=== PATIENT | male | born 1935 | race Caucasian/White ===

== ENCOUNTER 2016-11-08 15:09 | Inpatient (IN) ==
[~2016-11-08 15:09] MED LIST: *HR* Metoprolol 5 MG/5 ML VIAL IVP ONE
[2016-11-08] MEDS ORDERED: Furosemide 40 MG/4 ML VIAL IVP ONE (15:27)
[2016-11-08] MEDS ORDERED: Ipratropium/Albuterol Neb 3 ML ONE (15:33)
[2016-11-08 15:38] LABS: Basophils % 0.2 %; Hematocrit 31.3 % (37.5-50.1); Immature Granulocytes % 1.1 % (0-4); Lymphocytes # 0.4 K/mcL (0.6-4.6); Lymphocytes % 3.8 %; Mean Corpuscular HGB Conc 31.9 g/dL (31.6-35.5); Mean Corpuscular Hemoglobin 29.5 pg (28.0-33.3); Mean Corpuscular Volume 92.3 fL (83.0-100.0); Mean Platelet Volume 9.6 fL (9.4-12.4); Monocytes # 0.6 K/mcL (0.0-1.3); Monocytes % 5.1 %; Neutrophils # 10.5 K/mcL (1.6-8.9); Platelet Count 252 K/mcL (140-400); Red Blood Count 3.39 M/mcL (4.19-5.50); Red Cell Distribution Width 12.4 % (11.5-14.5); Segmented Neutrophils % 89.8 %
[2016-11-08 15:39] LABS: ABG Base Excess -5.7 mEq/L (-2.0 to 3.0); ABG HCO3 20.1 mEQ/L (21-27); ABG Oxygen Saturation 89 % (95-98); ABG PCO2 40 mmHg (35-45); ABG PH 7.31 pH Units (7.32-7.45); ABG PO2 63 mmHg (85-104); ABG TCO2 21.3 mEq/L (20-26); Blood Gas FiO2 60 %
[2016-11-08 15:43] LABS: Prothrombin Time 11.1 Seconds (9.4-12.1)
[2016-11-08 15:46] LABS: Activated Partial Thrombo Time 30.6 Seconds (26.0-36.0)
[2016-11-08 15:52] LABS: Albumin 3.3 g/dL (3.5-5.0); Albumin/Globulin Ratio 0.8 (1.1-2.2); Bilirubin,Total 0.4 mg/dL (0.2-1.2); Calcium 8.2 mg/dL (8.6-10.8); Globulin 3.9 g/dL (2.4-3.5); Potassium 4.1 mEq/L (3.5-4.5); Total Protein 7.2 g/dL (6.0-8.3)
--- NOTE | 2016-11-08 16:10 | Emergency Department Note ---
Disposition Clinical Impression: Community acquired pneumonia, CHF (congestive heart failure), Elevated troponin Disposition: Admitted As Inpatient Condition: Good SOB HPI - General Chief Complaint: ED Shortness of Breath/Dyspnea Stated Complaint: NYA/AMS Time Seen by Provider: 11/08/16 15:11 Source: patient, EMS Limitations: age Nursing Notes Reviewed: Yes Vital Signs Reviewed: Yes - History of Present Illness Patient comes in with complaint of shortness of breath started about 3 days ago. Patient states that he was scheduled to have knee surgery and he was taken off his Lasix prior to this. Patient also notes that he was found to be anemic and a colonoscopy ordered. Patient denies chest pain does complains of shortness of breath. Per EMS report patient was found unresponsive with this wound is now with a found when they arrived residents. They state his oxygen saturation was about 70% and he was having difficulty breathing. - Related Data Home Medications Medication Instructions Recorded Confirmed Alprazolam [Xanax 0.5 MG Tablet] 0.5 mg PO TID PRN 01/16/16 11/08/16 Glimepiride [Amaryl] 4 mg PO QAM 01/16/16 11/08/16 Lisinopril [Zestril] 40 mg PO BID 01/16/16 11/08/16 Sitagliptin Phosphate [Januvia] 50 mg PO DAILY #0 01/16/16 11/08/16 Diltiazem CD (24hr) [Cardizem CD] 240 mg PO QPM 11/08/16 11/08/16 Previous Rx's Medication Instructions Recorded Amlodipine [Norvasc] 5 mg PO DAILY #30 tablet 01/17/16 Allergies Allergy/AdvReac Type Severity Reaction Status Date / Time Penicillins Allergy Hives Verified 01/16/16 11:27 All systems ED: reviewed and negative except as stated. Past Medical History - Past Medical History Source: patient Medical history: Reports: CHF, diabetes, hypertension, renal disease Surgical history: Reports: appendectomy, cataract, cholecystectomy, knee replacement Psychiatric history: Reports: anxiety - Social History Smoking Status: Former smoker Smokeless Tobacco Status: Yes Alcohol use: Reports: none Drug use: Reports: none Physical Exam - General Limitations: age General appearance: alert - Head Head exam: atraumatic, normocephalic, normal inspection - Eye Eye exam: Present: normal appearance, PERRL, EOMI - ENT ENT exam: normal exam, normal oropharynx, mucous membranes moist - Neck Neck exam: Present: normal inspection, full ROM, trachea midline - Chest Chest inspection: Present: normal inspection, symmetric chest wall rise - Respiratory Respiratory exam: Present: wheezes, accessory muscle use, prolonged expiratory phase - Cardiovascular Cardiovascular exam: Present: tachycardia, irregular rhythm - Abdominal Exam Abdominal exam: Present: soft, Non-Tender. Absent: tenderness, distention, guarding, rebound, rigidity - Extremities Exam Extremities exam: Present: full ROM, pedal edema. Absent: tenderness - Back Exam Back exam: Present: normal inspection, full ROM. Absent: tenderness - Neurological Exam Neurological exam: Present: alert, oriented X3 - Psychiatric Psychiatric exam: Present: normal affect, normal mood - Skin Skin exam: Present: warm ( ), dry, intact, normal color Course Vital Signs Temperature 98.9 F 11/08/16 15:11 Pulse Rate 130 11/08/16 15:11 Respiratory Rate 22 11/08/16 15:11 Blood Pressure 158/90 11/08/16 15:11 O2 Sat by Pulse Oximetry 75 L 11/08/16 15:11 Temperature 98.9 F 11/08/16 15:11 Pulse Rate 118 11/08/16 17:57 Respiratory Rate 14 11/08/16 17:57 Blood Pressure 112/86 11/08/16 17:57 O2 Sat by Pulse Oximetry 94 L 11/08/16 17:57 Oxygen Delivery Oxygen Delivery CPAP Mask O2 Shortness of Breath/Dyspnea - Differential Diagnosis Likely: acute exacerbation of chronic obstructive airways disease, congestive heart failure, pneumonia, pulmonary embolism, pneumothorax - Lab Data Lab results reviewed: Yes I reviewed the patient's lab results. Result diagrams: 11/08/16 15:27 11/08/16 15:27 Lab Results 11/08/16 11/08/16 11/08/16 Range/Units 15:27 15:27 15:27 WBC 11.7 H (4.3-11.1) K/mcL RBC 3.39 L (4.19-5.50) M/mcL Hgb 10.0 L (12.9-16.9) g/dL Hct 31.3 L (37.5-50.1) % MCV 92.3 (83.0-100.0) fL MCH 29.5 (28.0-33.3) pg MCHC 31.9 (31.6-35.5) g/dL RDW 12.4 (11.5-14.5) % Plt Count 252 (140-400) K/mcL MPV 9.6 (9.4-12.4) fL Immature Gran % 1.1 (0-4) % Seg Neutrophils % 89.8 % Lymphocytes % 3.8 % Monocytes % 5.1 % Eosinophils % 0.0 % Basophils % 0.2 % Neutrophils # 10.5 H (1.6-8.9) K/mcL Lymphocytes # 0.4 L (0.6-4.6) K/mcL Monocytes # 0.6 (0.0-1.3) K/mcL Eosinophils # 0.0 (0.0-0.6) K/mcL Basophils # 0.0 (0.0-0.2) K/mcL PT 11.1 (9.4-12.1) Seconds INR 1.0 APTT 30.6 (26.0-36.0) Seconds ABG pH (7.32-7.45) pH Units ABG pCO2 (35-45) mmHg ABG pO2 (85-104) mmHg ABG HCO3 (21-27) mEQ/L ABG Total CO2 (20-26) mEq/L ABG O2 Saturation (95-98) % ABG Base Excess (-2.0 to 3.0) mEq/L Blood Gas Modality Inspired O2 % Sodium 134 L (136-145) mEq/L Potassium 4.1 (3.5-4.5) mEq/L Chloride 104 (98-109) mEq/L Carbon Dioxide 18 L (19-29) mEq/L BUN 43 H (8-26) mg/dL Creatinine 1.85 H (0.72-1.25) mg/dL Est GFR ( Amer) 43 L (> 60) Est GFR (Non-Af Amer) 35 L (> 60) BUN/Creatinine Ratio 23 (6-26) Glucose 111 H (70-99) mg/dL Calculated Osmolality 290 (280-300) Lactic Acid (0.5-2.2) mmol/L Calcium 8.2 L (8.6-10.8) mg/dL Total Bilirubin 0.4 (0.2-1.2) mg/dL AST 32 (5-34) Units/L ALT 11 (0-55) Units/L Alkaline Phosphatase 105 (38-126) Units/L Troponin I (0-0.03) ng/mL B-Natriuretic Peptide (0-100) pg/mL Serum Total Protein 7.2 (6.0-8.3) g/dL Albumin 3.3 L (3.5-5.0) g/dL Globulin 3.9 H (2.4-3.5) g/dL Albumin/Globulin Ratio 0.8 L (1.1-2.2) Urine Color (Yellow) Urine Clarity (Clear) Urine pH (5.0-8.0) pH Units Ur Specific Prole (1.010-1.025) Urine Protein (Neg-Trace) mg/dL Urine Glucose (UA) (Normal) mg/dL Urine Ketones (Negative) mg/dL Urine Blood (Negative) Urine Nitrite (Negative) Urine Bilirubin (Negative) Urine Urobilinogen (Normal) mg/dL Ur Leukocyte Esterase (Negative) Urine Microscopic RBC (0-3) per hpf Urine Microscopic WBC (0-3) per hpf Ur Squamous Epith Cells (None-Few) per lpf Urine Bacteria (None-Few) per hpf Hyaline Casts Granular Casts (None Seen) per lpf Urine Mucus (Few) Urine Yeast Ur Culture Indicated? (NO) 11/08/16 11/08/16 11/08/16 Range/Units 15:27 15:27 15:27 WBC (4.3-11.1) K/mcL RBC (4.19-5.50) M/mcL Hgb (12.9-16.9) g/dL Hct (37.5-50.1) % MCV (83.0-100.0) fL MCH (28.0-33.3) pg MCHC (31.6-35.5) g/dL RDW (11.5-14.5) % Plt Count (140-400) K/mcL MPV (9.4-12.4) fL Immature Gran % (0-4) % Seg Neutrophils % % Lymphocytes % % Monocytes % % Eosinophils % % Basophils % % Neutrophils # (1.6-8.9) K/mcL Lymphocytes # (0.6-4.6) K/mcL Monocytes # (0.0-1.3) K/mcL Eosinophils # (0.0-0.6) K/mcL Basophils # (0.0-0.2) K/mcL PT (9.4-12.1) Seconds INR APTT (26.0-36.0) Seconds ABG pH (7.32-7.45) pH Units ABG pCO2 (35-45) mmHg ABG pO2 (85-104) mmHg ABG HCO3 (21-27) mEQ/L ABG Total CO2 (20-26) mEq/L ABG O2 Saturation (95-98) % ABG Base Excess (-2.0 to 3.0) mEq/L Blood Gas Modality Inspired O2 % Sodium (136-145) mEq/L Potassium (3.5-4.5) mEq/L Chloride (98-109) mEq/L Carbon Dioxide (19-29) mEq/L BUN (8-26) mg/dL Creatinine (0.72-1.25) mg/dL Est GFR ( Amer) (> 60) Est GFR (Non-Af Amer) (> 60) BUN/Creatinine Ratio (6-26) Glucose (70-99) mg/dL Calculated Osmolality (280-300) Lactic Acid 1.5 (0.5-2.2) mmol/L Calcium (8.6-10.8) mg/dL Total Bilirubin (0.2-1.2) mg/dL AST (5-34) Units/L ALT (0-55) Units/L Alkaline Phosphatase (38-126) Units/L Troponin I 0.21 H* (0-0.03) ng/mL B-Natriuretic Peptide 891 H (0-100) pg/mL Serum Total Protein (6.0-8.3) g/dL Albumin (3.5-5.0) g/dL Globulin (2.4-3.5) g/dL Albumin/Globulin Ratio (1.1-2.2) Urine Color (Yellow) Urine Clarity (Clear) Urine pH (5.0-8.0) pH Units Ur Specific Prole (1.010-1.025) Urine Protein (Neg-Trace) mg/dL Urine Glucose (UA) (Normal) mg/dL Urine Ketones (Negative) mg/dL Urine Blood (Negative) Urine Nitrite (Negative) Urine Bilirubin (Negative) Urine Urobilinogen (Normal) mg/dL Ur Leukocyte Esterase (Negative) Urine Microscopic RBC (0-3) per hpf Urine Microscopic WBC (0-3) per hpf Ur Squamous Epith Cells (None-Few) per lpf Urine Bacteria (None-Few) per hpf Hyaline Casts Granular Casts (None Seen) per lpf Urine Mucus (Few) Urine Yeast Ur Culture Indicated? (NO) 11/08/16 11/08/16 Range/Units 15:31 16:00 WBC (4.3-11.1) K/mcL RBC (4.19-5.50) M/mcL Hgb (12.9-16.9) g/dL Hct (37.5-50.1) % MCV (83.0-100.0) fL MCH (28.0-33.3) pg MCHC (31.6-35.5) g/dL RDW (11.5-14.5) % Plt Count (140-400) K/mcL MPV (9.4-12.4) fL Immature Gran % (0-4) % Seg Neutrophils % % Lymphocytes % % Monocytes % % Eosinophils % % Basophils % % Neutrophils # (1.6-8.9) K/mcL Lymphocytes # (0.6-4.6) K/mcL Monocytes # (0.0-1.3) K/mcL Eosinophils # (0.0-0.6) K/mcL Basophils # (0.0-0.2) K/mcL PT (9.4-12.1) Seconds INR APTT (26.0-36.0) Seconds ABG pH 7.31 L (7.32-7.45) pH Units ABG pCO2 40 (35-45) mmHg ABG pO2 63 L (85-104) mmHg ABG HCO3 20.1 L (21-27) mEQ/L ABG Total CO2 21.3 (20-26) mEq/L ABG O2 Saturation 89 L (95-98) % ABG Base Excess -5.7 L (-2.0 to 3.0) mEq/L Blood Gas Modality BIPAP Inspired O2 60 % Sodium (136-145) mEq/L Potassium (3.5-4.5) mEq/L Chloride (98-109) mEq/L Carbon Dioxide (19-29) mEq/L BUN (8-26) mg/dL Creatinine (0.72-1.25) mg/dL Est GFR ( Amer) (> 60) Est GFR (Non-Af Amer) (> 60) BUN/Creatinine Ratio (6-26) Glucose (70-99) mg/dL Calculated Osmolality (280-300) Lactic Acid (0.5-2.2) mmol/L Calcium (8.6-10.8) mg/dL Total Bilirubin (0.2-1.2) mg/dL AST (5-34) Units/L ALT (0-55) Units/L Alkaline Phosphatase (38-126) Units/L Troponin I (0-0.03) ng/mL B-Natriuretic Peptide (0-100) pg/mL Serum Total Protein (6.0-8.3) g/dL Albumin (3.5-5.0) g/dL Globulin (2.4-3.5) g/dL Albumin/Globulin Ratio (1.1-2.2) Urine Color Yellow (Yellow) Urine Clarity Cloudy A (Clear) Urine pH 5.0 (5.0-8.0) pH Units Ur Specific Prole 1.016 (1.010-1.025) Urine Protein >=300 H (Neg-Trace) mg/dL Urine Glucose (UA) Normal (Normal) mg/dL Urine Ketones Negative (Negative) mg/dL Urine Blood Small H (Negative) Urine Nitrite Negative (Negative) Urine Bilirubin Negative (Negative) Urine Urobilinogen Normal (Normal) mg/dL Ur Leukocyte Esterase Negative (Negative) Urine Microscopic RBC 0-3 (0-3) per hpf Urine Microscopic WBC 0-3 (0-3) per hpf Ur Squamous Epith Cells Few (None-Few) per lpf Urine Bacteria None Seen (None-Few) per hpf Hyaline Casts Test Not Performed Granular Casts Few H (None Seen) per lpf Urine Mucus Few (Few) Urine Yeast Test Not Performed Ur Culture Indicated? NO (NO) - Radiology Data Radiology results reviewed: Yes I reviewed the patient's radiology results. Head CT 11/08/16 15:11 IMPRESSION: No acute intracranial abnormality. Stable periventricular white matter ischemic changes. D/ / 11/08/2016 17:25:31 Byron Stevens MD / [email or web address] Interpreting Provider: Byron Stevens MD Chest X-Ray 11/08/16 15:12 IMPRESSION: New bilateral airspace disease suggestive of pulmonary edema. There is slightly more focal consolidation in the right upper lung and left mid lung and superimposed pneumonia not excluded. D/ / Zara Solano MD / Zara Solano MD Interpreting Provider: Zara Solano MD - EKG Data EKG attestation: Yes I reviewed and interpreted this EKG. Rate: Reports: tachycardia Rhythm: Reports: A.Fib Critical Care Time Total Critical Care Time: 30 Attestation: Critical care performed: Time is exclusive of separately billable procedures. Time includes: direct patient care, patient reassessment, coordination of patient care, interpretation of data (laboratory data, radiology data, and respiratory data), review of patient's medical records, medical consultation and documentation of patient care. Procedures included in critical care time: Procedures excluded from critical care time:
[2016-11-08 16:21] LABS: Bilirubin,Urine Negative (Negative); Blood,Urine Small (Negative); Clarity,Urine Cloudy (Clear); Color,Urine Yellow (Yellow); Glucose,Urine (UA) Normal (Normal); Ketones,Urine Negative (Negative); Leukocyte Esterase,Urine Negative (Negative); Nitrite,Urine Negative (Negative); Protein,Urine >=300 mg/dL (Neg-Trace); Specific Gravity,Urine 1.016 (1.010-1.025); Urobilinogen,Urine Normal (Normal)
[2016-11-08 16:24] LABS: Bacteria,Urine None Seen per hpf (None-Few); RBC,Urine 0-3 per hpf (0-3); WBC,Urine 0-3 per hpf (0-3)
[2016-11-08 16:47] LABS: Squamous Epithelial Cell,Urine Few per lpf (None-Few)
[2016-11-08 16:48] LABS: Granular Casts,Urine Few per lpf (None Seen); Mucus,Urine Few (Few)
[2016-11-08] MEDS ORDERED: Azithromycin 500 MG in D5% in Water 250 ML IVPB ONE (18:49)
[2016-11-08] MEDS ORDERED: ALPRAZolam 0.5 MG TABLET PO PRN (19:53)
[2016-11-08] MEDS ORDERED: Ipratropium/Albuterol Neb 3 ML IH PRN (19:54)
[2016-11-08] MEDS ORDERED: *HR* Morphine 2 MG/ML SYRINGE IV PRN (19:54)
[2016-11-08] MEDS ORDERED: Dextrose Gel 15 GM PO PRN ×2 (19:55)
[2016-11-08] MEDS ORDERED: Naloxone 0.4 MG/ML INJ IVP PRN (19:55)
[2016-11-08] MEDS ORDERED: Acetaminophen 325 MG TABLET PO PRN (19:55)
[2016-11-08] MEDS ORDERED: *HR* Dextrose 50 % in Water (Syg) 50 ML SYRINGE IVP PRN (19:55)
[2016-11-08] MEDS ORDERED: Ondansetron 4 MG/2 ML VIAL IVP PRN (19:55)
[2016-11-08] MEDS ORDERED: D5% in Water 1,000 ML IV PRN (19:55)
[2016-11-08] MEDS ORDERED: *HR* Heparin 5,000 UNIT/ML VIAL SQ SCH (20:00)
--- NOTE | 2016-11-08 20:02 | Internal Med History&Physical ---
Date of Encounter: 11/08/16 Time of Encounter: 19:59 Assessment and Plan (1) Acute respiratory failure Current visit: Yes Status: Acute Acute hypoxic respiratory failure secondary to combination of acute diastolic CHF exacerbation with possible acute community-acquired pneumonia Continue Rocephin and azithromycin Lasix IV with a strict I's and O's and daily weight Continue BiPAP, titrate oxygen Order a nasal swab to test for respiratory viral infections Blood cultures Qualifiers: Respiratory failure complication: hypoxia Qualified Code(s): J96.01 - Acute respiratory failure with hypoxia (2) Hypertension Current visit: Yes Status: Acute Stable, continue lisinopril and hold amlodipine Qualifiers: Hypertension type: essential hypertension Qualified Code(s): I10 - Essential (primary) hypertension (3) A-fib Current visit: Yes Status: Acute Stable Continue Cardizem Qualifiers: Atrial fibrillation type: paroxysmal Qualified Code(s): I48.0 - Paroxysmal atrial fibrillation (4) CHF (congestive heart failure) Current visit: Yes Status: Acute Qualifiers: Congestive heart failure type: diastolic Congestive heart failure chronicity: acute on chronic Qualified Code(s): I50.33 - Acute on chronic diastolic (congestive) heart failure (5) Community acquired pneumonia Current visit: Yes Status: Acute (6) Elevated troponin Current visit: Yes Status: Acute Likely secondary to demand ischemia Continue telemetry and follow troponins Add aspirin (7) Syncope Current visit: No Status: Acute Likely secondary to hypoxia Omeprazole for GI prophylaxis and subcutaneous heparin for DVT prophylaxis. The patient will be admitted as inpatient, he is expected to stay more than 2 midnights. He is a full code. Time spent on this admission 40 minutes. He is high risk for respiratory failure Qualifiers: Syncope type: unspecified Qualified Code(s): R55 - Syncope and collapse Internal Medicine - H&P: HPI Chief complaint: Shortness of breath Plans for Post Hospital Care: Home History of present illness: Mr. 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 His mentions that he has been sick for the past 3 days , bringing up yellowish phlegm and complaining of a cough. Also, he has been off his Lasix and other medications since October 31 she was scheduled to have a knee replacement on November 05. The surgery had to be canceled and rescheduled as the patient was recommended to have a colonoscopy due to anemia, his hemoglobin is 10 at the moment there are no signs of bleeding. The chest x- ray shows pulmonary edema and also a right upper lobe and left middle lobe opacities and pneumonia cannot be excluded. The patient received Rocephin and azithromycin at the emergency room also Lasix was given. His heart rate was 124 but now is better controlled in the low 100s. Patient was started on the BiPAP his pH was 7.31 PCO2 40 and PO2 63. White Blood cell count is 11.7. Patient is very weak at the moment denies any other complaints, no chest pain, his troponin 0.21, denies any sick contacts. The patient had a recent stress test that was normal less than a month ago with an ejection fraction 48%, his last echocardiogram on the same month is 60% and shows mild diastolic dysfunction. Past Med Surg Social Fam HX - Past Medical History Medical history: CHF (Diastolic), diabetes (Not insulin-dependent), hypertension , renal disease (CK D3), other (Anxiety, atrial fibrillation not on anticoagulation, syncopal episodes in the past due to not intentional Cardizem overdose) Psychiatric history: anxiety - Past Surgical History Surgical History: appendectomy, cataract, cholecystectomy, knee replacement - Social History Smoking Status: Former smoker Smokeless Tobacco Status: Yes Alcohol use: none Drug use: none - Family History Mother Living Status: Father Living Status: - Additional Family History Additional family history: Mother with a myocardial infarction and at 73, father with aplastic anemia Internal Medicine - H&P: Meds Alprazolam [Xanax 0.5 MG Tablet] 0.5 mg PO TID PRN 01/16/16 [History] Glimepiride [Amaryl] 4 mg PO QAM 01/16/16 [History] Lisinopril [Zestril] 40 mg PO BID 01/16/16 [History] Sitagliptin Phosphate [Januvia] 50 mg PO DAILY #0 01/16/16 [History] Amlodipine [Norvasc] 5 mg PO DAILY #30 tablet 01/17/16 [Rx] Diltiazem CD (24hr) [Cardizem CD] 240 mg PO QPM 11/08/16 [History] Allergies Penicillins Allergy (Verified 01/16/16 11:27) Hives All Systems PM: A 10-system review of systems was performed and is negative for pertinent findings except as documented above in the HPI. Review of systems: Still very short of breath, denies any chest pain, no abdominal pain, no dysuria. Other systems out of the 10 reviewed were negative - Constitutional Vitals: Temp Pulse Resp BP Pulse Ox 98.9 F 118 14 130/83 94 L 11/08/16 15:11 11/08/16 17:57 11/08/16 18:52 11/08/16 18:52 11/08/16 17:57 - Head Head exam: Present: atraumatic, normocephalic - Eye Eye exam: Present: PERRL, conjuntiva pink, sclera anicteric Pupils: Present: PERRL - Neck Neck exam general surgery: Present: supple, trachea midline. Absent: lymphadenopathy - Respiratory Respiratory exam: Present: CTAB, rales (Diffuse coarse crackles). Absent: accessory muscle use, rhonchi, wheezes - Cardiovascular Cardiovascular exam: Present: RRR, +S1, +S2. Absent: diastolic murmur, gallop, rubs, systolic murmur - GI/Abdominal GI/Abdominal exam: Present: normal bowel sounds, soft, no peritoneal signs. Absent: distended, tenderness - Extremities Exam Extremities exam: Present: warm, radial pulses palpable and symetrical. Absent : calf tenderness, cyanotic, pedal edema Additional comments: Mild +1 pitting edema both lower extremities - Neurological Exam Neurological exam: Present: CN II-XII intact, oriented X3, no focal deficits. Absent: pronater drift, facial droop, speech deficit - Skin Skin exam: Present: dry, intact Internal Med - H&P Results - Labs CBC & Chem 7: 11/08/16 15:27 11/08/16 15:27
[2016-11-08] MEDS: Insulin LISPRO 300 UNITS/3 ML VIAL SQ SCH (21:51)
[2016-11-08] MEDS: Furosemide 40 MG/4 ML VIAL IV SCH (21:54)
[2016-11-08] MEDS: Lisinopril 20 MG TABLET PO SCH (21:54)
[2016-11-08] MEDS: Aspirin 81 MG TAB.CHEW PO SCH (21:56)
[2016-11-08] MEDS ORDERED: Diltiazem CD (24hr) 240 MG CAPSULE PO STA (23:46)
[2016-11-09] MEDS: *HR* Metoprolol 5 MG/5 ML VIAL IVP SCH (00:56)
[2016-11-09 01:51] LABS: Hematocrit 29.1 % (37.5-50.1); Hemoglobin 9.6 g/dL (12.9-16.9); Mean Corpuscular Hemoglobin 29.4 pg (28.0-33.3); Mean Corpuscular Volume 89.3 fL (83.0-100.0); Mean Platelet Volume 9.7 fL (9.4-12.4); Platelet Count 218 K/mcL (140-400); Red Blood Count 3.26 M/mcL (4.19-5.50); Red Cell Distribution Width 12.4 % (11.5-14.5)
[2016-11-09 02:03] LABS: Calcium 7.8 mg/dL (8.6-10.8); Potassium 3.9 mEq/L (3.5-4.5)
[2016-11-09] MEDS: *HR* Enoxaparin 100 MG/ML SYRINGE SQ SCH ×2 (05:28→18:33)
[2016-11-09] MEDS: Insulin LISPRO 300 UNITS/3 ML VIAL SQ SCH ×4 (07:50→21:12)
[2016-11-09 08:31] LABS: Adenovirus Not Detected (Not Detect); Bordetella Pertussis Not Detected (Not Detect); Chlamydophila pneumoniae Not Detected (Not Detect); Coronavirus 229E Not Detected (Not Detect); Coronavirus HKU1 Not Detected (Not Detect); Coronavirus NL63 Not Detected (Not Detect); Coronavirus OC43 Not Detected (Not Detect); Human Metapneumovirus ***DETECTED*** (Not Detect); Human Rhinovirus/Enterovirus Not Detected (Not Detect); Influenza A Subtype 2009 H1 Not Detected (Not Detect); Influenza A Untypeable Not Detected (Not Detect); Influenza B Not Detected (Not Detect); Mycoplasma pneumoniae Not Detected (Not Detect); Parainfluenza Virus 1 Not Detected (Not Detect); Parainfluenza Virus 2 Not Detected (Not Detect); Parainfluenza Virus 3 Not Detected (Not Detect); Parainfluenza Virus 4 Not Detected (Not Detect); Respiratory Syncytial Virus Not Detected (Not Detect)
--- NOTE | 2016-11-09 09:11 | Cardiology Consult Note ---
<Eliceo Vail - Last Filed: 11/09/16 14:30> Date of Encounter: 11/09/16 Time of Encounter: 09:15 Assessment and Plan (1) Community acquired pneumonia Current Visit: Yes Status: Acute Per Cardiology: Being managed by primary service and on antibiotics. Suspect contribute factor to A. fib with RVR and elevated troponins. (2) A-fib Current Visit: Yes Status: Acute Per Cardiology: Known history of paroxysmal atrial fibrillation. Nonexercise nuclear stress test negative for ischemia October 2016. Echocardiogram October 2016 showed EF preserved at 60%, mild diastolic dysfunction, mild aortic, mild pulmonary hypertension, no segmental wall motion abnormalities. Afib appears to be somewhat better controlled 90's to 100's controlled with Cardizem CD 240 mg by mouth daily-- this is his home dose. Systolic blood pressure in the 140s. Will increase Cardizem CD to 360 mg by mouth daily. We'll decrease lisinopril from 40 mg by mouth twice a day to 40 mg by mouth daily to allow for room with blood pressure for titration of rate controlling agents and due to underlying CKD stage IIIB and receiving IV Lasix. Continue to monitor telemetry and vital signs. No recent TSH, will check an a.m. Regarding long-term anticoagulation, recently seen by cardiology and started on Coumadin for stroke prevention, however discontinued by PCP for concerns of anemia and reports of melena stools. Anticoagulation currently on hold due to pending GI evaluation. Patient and family aware of increased stroke risk. He denies any current active bleeding or blood loss. Patient discussed and reviewed with Dr. Long. Qualifiers: Atrial fibrillation type: paroxysmal Qualified Code(s): I48.0 - Paroxysmal atrial fibrillation (3) Elevated troponin Current Visit: Yes Status: Acute Per Cardiology: Troponins flat and relatively adynamic with elevations of 0.21, 0.32, 0.39, and 0.41 in setting of A. fib with RVR, suspected pneumonia with respiratory distress/hypoxia hypoxia, and hypoglycemic episode with unresponsiveness. Patient denies any chest pain. Recent nuclear stress test negative for ischemia. Suspect type II demand ischemia. Do not suspect non-STEMI. No cardiac rehabilitation warranted at this time. Again recent echo showed EF preserved with no segmental wall motion abnormalities. (4) LBBB (left bundle branch block) Current Visit: Yes Status: Chronic Per Cardiology: Left bundle branch block noted on ECG from cardiology office visit. Discussion w patient/family: The assessment and plan as outlined above was discussed with the patient and/or family members who expressed understanding and agreement. All questions were answered. Thank you for involving us in the care of your patient. Please call with any questions. History of Present Illness Consult date: 11/09/16 Requesting physician: Steven Montesinos Consult reason: Elevated Troponin Chief complaint: MS Changes, SOB, Cough History of present illness: Mr. 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 Upon review of records has history of left bundle branch block. Patient reports seen by Dr. Guzman with cardiology about one month ago for recurrence of his atrial fibrillation. He confirms scheduled for stress test at that time and started on Coumadin therapy. Has not followed up with cardiology as of yet. Reports was scheduled for knee surgery, however postponed due to atrial fibrillation with RVR. Additionally, saw PCP with concerns of worsening hemoglobin and reports of melena stools. Patient reports PCP discontinued Coumadin at that time it was scheduled for GI evaluation. He indicates was preparing for colonoscopy yesterday, however over the past few days has developed cough with production of yellow-green sputum, sore throat, and chest congestion. Patient and also report at time of discontinuing Coumadin they believe they were told to discontinue his Lasix 40 mg by mouth daily as well. Family reports they called EMS when patient became unresponsive yesterday and reports his blood sugars with 50s and oxygen saturation the 70s. Patient seen today and denies any chest pain or palpitations. Reports is short of breath slightly improved. Reports does not require oxygen at home. Denies any smoking history. Past Med Surg Social Fam HX - Past Medical History Attestation: Yes The following information was validated with the patient. Source: patient, old records reviewed, obtained from family Medical history: CHF, diabetes, hypertension, renal disease, other Psychiatric history: anxiety - Past Surgical History Surgical History: appendectomy, cataract, cholecystectomy, knee replacement - Social History Smoking Status: Former smoker Smokeless Tobacco Status: Yes Alcohol use: none Drug use: none - Family History Mother Living Status: Father Living Status: Medications and Allergies Alprazolam [Xanax 0.5 MG Tablet] 0.5 mg PO TID PRN 01/16/16 [History] Glimepiride [Amaryl] 4 mg PO QAM 01/16/16 [History] Lisinopril [Zestril] 40 mg PO BID 01/16/16 [History] Sitagliptin Phosphate [Januvia] 50 mg PO DAILY #0 01/16/16 [History] Amlodipine [Norvasc] 5 mg PO DAILY #30 tablet 01/17/16 [Rx] Diltiazem CD (24hr) [Cardizem CD] 240 mg PO QPM 11/08/16 [History] Allergies Penicillins Allergy (Verified 01/16/16 11:27) Hives All Systems Review: A 10-system review of systems was performed and is negative for pertinent findings except as documented above in the HPI. - Constitutional Constitutional: fatigue - Cardiovascular Cardiovascular: as per HPI, dyspnea at rest, dyspnea on exertion, irregular heart rhythm - Respiratory Respiratory: cough, dyspnea - Gastrointestinal Gastrointestinal: melena - Psychiatric Psychiatric: anxiety Physical Examination Vital Signs, Last 4 Hours Temp Pulse Resp BP Pulse Ox 11/09/16 06:59 98.1 F 78 20 118/76 96 General: Conversant HEENT: Atraumatic, Normocephaly, Mucus Membranes Moist Neck: No JVD, Normal carotid pulses Cardiac: No Murmur, Other (Irregular irregular) Lungs: Other (Scattered rhonchi throughout, respirations moderately labored at rest and with speaking) Neuro: Alert and responsive, No focal deficits noted Abdomen: Soft, Non-Tender Skin: No rashes noted on visualized skin Musculoskeletal: No Chest Wall Tenderness Extremities: No Edema, Normal Pulses Results 11/09/16 01:44 11/09/16 01:44 Lab Results Laboratory Tests 10/10/16 10/10/16 11/01/16 10:27 10:27 10:48 WBC 9.3 Hgb 9.6 L Hct 33.0 L INR Creatinine 1.60 H Est GFR (Non-Af Amer) 42 L Troponin I B-Natriuretic Peptide Albumin 11/08/16 11/08/16 11/08/16 15:27 15:27 15:27 WBC 11.7 H Hgb 10.0 L Hct 31.3 L INR 1.0 Creatinine Est GFR (Non-Af Amer) Troponin I B-Natriuretic Peptide Albumin 3.3 L 11/08/16 11/08/16 11/08/16 15:27 15:27 21:36 WBC Hgb Hct INR Creatinine Est GFR (Non-Af Amer) Troponin I 0.21 H* 0.32 H* B-Natriuretic Peptide 891 H Albumin 11/09/16 11/09/16 11/09/16 01:44 01:44 01:44 WBC 14.9 H Hgb 9.6 L Hct 29.1 L INR Creatinine 1.87 H Est GFR (Non-Af Amer) 35 L Troponin I 0.39 H* B-Natriuretic Peptide Albumin 11/09/16 08:58 WBC Hgb Hct INR Creatinine Est GFR (Non-Af Amer) Troponin I 0.41 H* B-Natriuretic Peptide Albumin ITS Impressions Head CT 11/08/16 15:11 IMPRESSION: No acute intracranial abnormality. Stable periventricular white matter ischemic changes. D/ / 11/08/2016 17:25:31 Byron Stevens MD / bcarter Interpreting Provider: Byron Stevens MD Chest X-Ray 11/08/16 15:12 IMPRESSION: New bilateral airspace disease suggestive of pulmonary edema. There is slightly more focal consolidation in the right upper lung and left mid lung and superimposed pneumonia not excluded. D/ / Zara Solano MD / Zara Solano MD Interpreting Provider: Zara Solano MD Intake & Output 11/06/16 11/07/16 11/08/16 11/09/16 23:59 23:59 23:59 23:59 Intake Total 490 / 490 780 / 780 Output Total 800 / 800 1300 / 1300 Balance -310 / -310 -520 / -520 Weight 94.1 kg 93.7 kg Active Medications Acetaminophen (Tylenol) 650 mg PO Q6HR PRN PRN Reason: Mild Pain (1-3) Stop: 05/10/17 19:56 Last Admin: 11/09/16 00:13 Dose: 650 mg Albuterol/Ipratropium (Duoneb) 3 ml IH [id number] PRN; Protocol PRN Reason: Shortness Of Breath/Wheezing Stop: 05/10/17 19:55 Alprazolam (Xanax) 0.5 mg PO TID PRN; Protocol PRN Reason: Anxiety Stop: 05/10/17 19:54 Aspirin (Aspirin) 81 mg PO DAILY ROQUE Stop: 05/10/17 20:16 Last Admin: 11/09/16 10:38 Dose: 81 mg Azithromycin (Zithromax) 250 mg PO DAILY ROQUE Stop: 11/12/16 09:01 Last Admin: 11/09/16 10:38 Dose: 250 mg Dextrose/Water (Dextrose 50% (Syg)) 25 ml IVP AD PRN PRN Reason: Hypoglycemia Stop: 05/10/17 19:56 Last Admin: 11/08/16 22:25 Dose: 25 ml Diltiazem HCl (Cardizem Cd) 240 mg PO QPM ROQUE Stop: 05/11/17 18:01 Enoxaparin Sodium (Lovenox) 100 mg SQ Q12H ROQUE PRN Reason: Protocol Stop: 05/11/17 06:01 Last Admin: 11/09/16 05:28 Dose: 100 mg Furosemide (Lasix) 40 mg IV BID ROQUE Stop: 05/10/17 21:01 Last Admin: 11/09/16 10:39 Dose: 40 mg Glucagon (Glucagen) 1 mg IM ONCE PRN PRN Reason: Hypoglycemia Stop: 05/10/17 19:56 Glucose (Gluctose) 15 gm PO ONCE PRN PRN Reason: Hypoglycemia Stop: 05/10/17 19:56 Last Admin: 11/09/16 08:02 Dose: 15 gm Glucose (Gluctose) 30 gm PO ONCE PRN PRN Reason: Hypoglycemia Stop: 05/10/17 19:56 Ceftriaxone Sodium 1,000 mg/ (Dextrose) 100 mls @ 200 mls/hr IVPB Q24H ROQUE Stop: 05/10/17 20:01 Last Admin: 11/08/16 21:56 Dose: Not Given Dextrose (Dextrose 5%) 1,000 mls @ 100 mls/hr IV CONT PRN PRN Reason: HYPOGLYCEMIA Stop: 05/10/17 19:56 Insulin Human Lispro (Humalog) 0 units SQ TIDAC [facility] PRN Reason: Protocol Stop: 05/11/17 07:31 Last Admin: 11/09/16 07:50 Dose: Not Given Insulin Human Lispro (Humalog) 0 units SQ HS [facility] PRN Reason: Protocol Stop: 05/10/17 21:01 Last Admin: 11/08/16 21:51 Dose: Not Given Lisinopril (Zestril) 40 mg PO BID [facility] Stop: 05/10/17 21:01 Last Admin: 11/09/16 10:38 Dose: 40 mg Metoprolol Tartrate (Lopressor) 5 mg IVP Q5MIN ROQUE Stop: 11/10/16 23:46 Last Admin: 11/09/16 00:56 Dose: Not Given Morphine Sulfate (Morphine Sulfate) 2 mg IV Q3H PRN PRN Reason: Pain Stop: 05/10/17 19:55 Naloxone HCl (Narcan) 0.4 mg IVP Q2MIN PRN PRN Reason: Opioid Reversal Stop: 05/10/17 19:56 Omeprazole (Prilosec) 40 mg PO DAILY@0630 [facility] PRN Reason: Protocol Stop: 05/11/17 06:31 Last Admin: 11/09/16 05:28 Dose: 40 mg Ondansetron HCl (Zofran) 4 mg IVP Q8HR PRN PRN Reason: Nausea And Vomiting Stop: 05/10/17 19:56 - Imaging and Cardiology Chest Xray: report reviewed Stress Test: report reviewed Echo: report reviewed - EKG Interpretation EKG results cardiology: personally reviewed (Atrial fibrillation with RVR), other (Telemetry currently shows A. fib with heart rate 90s to 100s) Consult Discharge Plan - Plan Referrals: Nicanor Araujo Jr, MD [Primary Care Provider] - <Claire Long - Last Filed: 11/09/16 17:08> Date of Encounter: 11/09/16 Assessment and Plan Discussion w patient/family: The assessment and plan as outlined above was discussed with the patient and/or family members who expressed understanding and agreement. All questions were answered. Thank you for involving us in the care of your patient. Please call with any questions. History of Present Illness History of present illness: Mr. Bowser is a 81 year old male All Systems Review: A 10-system review of systems was performed and is negative for pertinent findings except as documented above in the HPI. Physical Examination Vital Signs, Last 4 Hours Temp Pulse Resp BP Pulse Ox 11/09/16 16:02 98.3 F 103 16 137/86 92 L 11/09/16 13:15 93 L Results 11/09/16 01:44 11/09/16 01:44 Lab Results 11/08/16 11/09/16 11/09/16 21:36 01:44 01:44 WBC 14.9 H Hgb 9.6 L Hct 29.1 L Plt Count 218 Sodium Potassium Chloride Carbon Dioxide BUN Creatinine Glucose Calcium Troponin I 0.32 H* 0.39 H* 11/09/16 11/09/16 01:44 08:58 WBC Hgb Hct Plt Count Sodium 134 L Potassium 3.9 Chloride 105 Carbon Dioxide 19 BUN 42 H Creatinine 1.87 H Glucose 101 H Calcium 7.8 L Troponin I 0.41 H* - Attending Attestation I examined this patient and my medical decision-making was reviewed with the JEWELRY CONSULTANT/PA/Advanced Practice Nurse/Resident Physician. I agree with the documented findings, disposition and treatment plan. Mr. Bowser presents with respiratory symptoms and is being treated for pneumonia. He has a known history of paroxysmal atrial fibrillation. He's had a stress test recently that was negative and has normal LV function. The development of rapid rates is being driven by hypoxia. We will increase cardizem at this time for better rate control. His coumadin was stopped by PCP due to concern for anemia and melanotic stool awaiting colonoscopy. He remains on aspirin. Blood counts are stable.
--- NOTE | 2016-11-09 09:50 | Internal Med Progress Note ---
<Erika Cardoza - Last Filed: 11/09/16 16:34> Date of Encounter: 11/09/16 Time of Encounter: 09:20 - Assessment and plan (1) Acute respiratory failure Current Visit: Yes Status: Acute Assessment and plan: Per ABG, likely multifactorial 2* CHF exacerbation and pneumonia. Qualifiers: Respiratory failure complication: hypoxia Qualified Code(s): J96.01 - Acute respiratory failure with hypoxia (2) (HFpEF) heart failure with preserved ejection fraction Current Visit: Yes Status: Acute Assessment and plan: 10/17/16 Echo EF 60%, mild concentric LVH, mild left ventricular diastolic dysfunction. Mild AR, Mild PAH RVSP 39 Evidenced clinically with crackles on pulmonary exam, LE edema, CXR Continue diuresis regimen, cont to monitor I/O, weights, fluid guidelines. (3) Community acquired pneumonia Current Visit: Yes Status: Acute Assessment and plan: Rocephin/Azithromycin started 11/08/16, Day #2 Evidenced on CXR New bilateral airspace disease suggestive of pulmonary edema. There is slightly more focal consolidation in the right upper lung and left mid lung and superimposed pneumonia not excluded. Respiratory infectious panel would be positive for human metapneumovirus. Likely cardiogenic pulmonary edema contributory. Superimposed bacterial pneumonia is not ruled out. (4) Elevated troponin Current Visit: Yes Status: Acute Assessment and plan: Adynamic in setting of pneumonia and CHF exacerbation. Appreciate cardiology input. (5) A-fib Current Visit: Yes Status: Acute Assessment and plan: Rate controlled with Cardizem. Per Cardiology note, increasing dose of Cardizem. CHADVASC 4, appropriate for long-term anticoagulation. He was seen by PCP Dr. Araujo 11/01/16, with anemia and melanotic stools, so anticoagulation was held. Discussed with patient, he is aware of increased risk of stroke and embolic events. Qualifiers: Atrial fibrillation type: paroxysmal Qualified Code(s): I48.0 - Paroxysmal atrial fibrillation (6) DVT prophylaxis Current Visit: Yes Status: Acute Assessment and plan: EPCDs - Subjective Interval history: Patient seen/eval at bedside. No EKG available, ordered for one. Trope 0.3, he affirms no substernal chest pressure or pain, but does have pleuritic pain with cough. Reports history spinal stenosis so uses cane. Affirms sick contacts in family, subjective fever, productive cough, no abdominal pain, no nvd. - Constitutional Vitals: Temp Pulse Resp BP Pulse Ox 98.1 F 78 20 118/76 96 11/09/16 06:59 11/09/16 06:59 11/09/16 06:59 11/09/16 06:59 11/09/16 06:59 General appearance: Present: A&O X 3, pleasant - Head Head exam: Present: atraumatic, normocephalic - Eye Eye exam: Present: EOMI, sclera anicteric - ENT ENT exam: Present: mucous membranes moist - Neck Neck exam general surgery: Present: supple, trachea midline - Respiratory Respiratory exam: Present: rhonchi (diffuse all cruz, basilar crackles). Absent: accessory muscle use, wheezes - Cardiovascular Cardiovascular exam: Present: +S1, +S2. Absent: JVD - GI/Abdominal GI/Abdominal exam: Present: soft, no peritoneal signs. Absent: tenderness - Extremities Exam Extremities exam: Present: pedal edema (mild harry LE pitting edema), warm, radial pulses palpable and symetrical - Neurological Exam Neurological exam: Absent: facial droop, speech deficit Internal Medicine: Result - Labs CBC & Chem 7: 11/09/16 01:44 11/09/16 01:44 Labs: Short CBC 11/09/16 Range/Units 01:44 WBC 14.9 H (4.3-11.1) K/mcL Hgb 9.6 L (12.9-16.9) g/dL Hct 29.1 L (37.5-50.1) % Plt Count 218 (140-400) K/mcL BMP 11/09/16 01:44 Sodium 134 L Potassium 3.9 Chloride 105 Carbon Dioxide 19 BUN 42 H Creatinine 1.87 H Glucose 101 H Calcium 7.8 L Cardiac Enzymes 11/08/16 11/09/16 11/09/16 Range/Units 21:36 01:44 08:58 Troponin I 0.32 H* 0.39 H* 0.41 H* (0-0.03) ng/mL - ABG Interpretation ABG results: ABG ABG pH 7.31 pH Units (7.32-7.45) L 11/08/16 15:31 ABG pCO2 40 mmHg (35-45) 11/08/16 15:31 ABG pO2 63 mmHg (85-104) L 11/08/16 15:31 ABG O2 Saturation 89 % (95-98) L 11/08/16 15:31 PT/INR, D-dimer PT 11.1 Seconds (9.4-12.1) 11/08/16 15:27 Consult Discharge Plan - Plan Referrals: Nicanor Araujo Jr, MD [Primary Care Provider] - <Jose Antonio Ruff R - Last Filed: 11/09/16 18:19> Date of Encounter: 11/09/16 - Constitutional Vitals: Temp Pulse Resp BP Pulse Ox 98.3 F 103 16 137/86 92 L 11/09/16 16:02 11/09/16 16:02 11/09/16 16:02 11/09/16 16:02 11/09/16 16:02 Internal Medicine: Result - Labs CBC & Chem 7: 11/09/16 01:44 11/09/16 01:44 Labs: Short CBC 11/09/16 Range/Units 01:44 WBC 14.9 H (4.3-11.1) K/mcL Hgb 9.6 L (12.9-16.9) g/dL Hct 29.1 L (37.5-50.1) % Plt Count 218 (140-400) K/mcL BMP 11/09/16 01:44 Sodium 134 L Potassium 3.9 Chloride 105 Carbon Dioxide 19 BUN 42 H Creatinine 1.87 H Glucose 101 H Calcium 7.8 L Cardiac Enzymes 11/08/16 11/09/16 11/09/16 Range/Units 21:36 01:44 08:58 Troponin I 0.32 H* 0.39 H* 0.41 H* (0-0.03) ng/mL - ABG Interpretation ABG results: ABG ABG pH 7.31 pH Units (7.32-7.45) L 11/08/16 15:31 ABG pCO2 40 mmHg (35-45) 11/08/16 15:31 ABG pO2 63 mmHg (85-104) L 11/08/16 15:31 ABG O2 Saturation 89 % (95-98) L 11/08/16 15:31 PT/INR, D-dimer PT 11.1 Seconds (9.4-12.1) 01/04/17 15:27 - Attending Attestation I examined this patient and my medical decision-making was reviewed with the ACCOUNT MAINTENANCE REPRESENTATIVE/PA/Advanced Practice Nurse/Resident Physician. I agree with the documented findings, disposition and treatment plan as described except to the extent set forth below. Fluid overload and mild trop elevation in the setting of acute respiratory infection. D/W patient and his family.
--- NOTE | 2016-11-09 10:22 | Electrocardiograph Report ---
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
[2016-11-09] MEDS: Aspirin 81 MG TAB.CHEW PO SCH (10:38)
[2016-11-09] MEDS: Azithromycin 250 MG TABLET PO SCH (10:38)
[2016-11-09] MEDS: Lisinopril 20 MG TABLET PO SCH (10:38)
[2016-11-09] MEDS: Furosemide 40 MG/4 ML VIAL IV SCH ×2 (10:39→19:55)
[2016-11-09] MEDS ORDERED: Diltiazem CD (24hr) 120 MG CAPSULE PO ONE (14:41)
[2016-11-09] MEDS ORDERED: Diltiazem CD (24hr) 240 MG CAPSULE PO SCH (18:00)
[2016-11-10] MEDS: *HR* Metoprolol 5 MG/5 ML VIAL IVP SCH (03:26)
[2016-11-10] MEDS ORDERED: *HR* LORazepam 2 MG/ML VIAL IVP PRN (03:32)
[2016-11-10] MEDS ORDERED: Haloperidol Lactate 5 MG/ML VIAL IVP PRN (03:32)
[2016-11-10] MEDS ORDERED: Benzonatate 100 MG CAPSULE PO PRN (03:32)
--- NOTE | 2016-11-10 04:40 | Event Note ---
<Campos Friedman - Last Filed: 11/10/16 04:34> Date of Encounter: 11/10/16 Time of Encounter: 02:30 HPI: Paged by nurse at 2:20am for patient waking confused, pulling off gown, and telemetry. When I arrived patient's was sitting in a chair at the patient's bedside. Patient denies removing his gown or telemetry. States he doesn't know "why he was selected" to be here, he is unsure of why he is being treated, and is talking about "scifi" equipment we have him hooked up to. When questioning about patient's psychological and neurological history she always redirects the question back to the patient. Patient states he hasn't "felt right" for the past 6 months, though with further questioning his relationship to time is skewed as he talks about being treated for hypoglycemia with confusion/slurred speech 6 months ago that clarifies was about 2 weeks ago. PE: Awake, alert, and oriented to person, place, time, not to situation. CN II- XII intact. Sensation and strength are intact and equal bilaterally. Heart irregularly irregular. Lungs coarse wheezing and rhonchi throughout. A/P: Toxic metabolic encephalopathy with delirium, likely associated with primary illness of pneumonia with hypoxia and demand ischemia. Plan to continue treatment for primary illness. Concern for hypoglycemia, current BG 116. Will check cortisol and TSH for concern for endocrine cause. Initiated delirium protocol, with Ativan and Haldol prn, neuro checks. CT showed small vessel ischemic disease, prominent intracranial atherosclerotic vascular calcification. Will order MRI with concern of acute changes. Addendum: Upon further questioning states patient does take something for anxiety as needed. Med list reveals patient takes 0.5mg Xanax TID at home for anxiety. This is listed as prn, but patient has not received any during his stay. Patient denies any alcohol use or any non prescription drug use. Patient may be withdrawing, will restart patient's xanax. <Maxwell White - Last Filed: 11/12/16 05:23> Date of Encounter: 11/10/16 My signature below is to certify that this patient is under my care and that I, or the Resident Physician working with me, has had a [id number] encounter with this patient. My medical decision-making was reviewed with the Resident Physician. I agree with the documented findings, disposition and treatment plan as described except to the extent set forth below. Vital Signs Temp Pulse Resp BP Pulse Ox 11/11/16 11:32 97 11/11/16 10:55 97.2 F L 85 16 149/78 93 L 11/11/16 07:05 97.7 F 78 18 117/79 96 Intake and Output 11/11/16 11/11/16 11/12/16 15:59 23:59 07:59 Intake Total 240 / 240 Balance 240 / 240 Intake: Oral 240 / 240 Other: Meal Breakfast Percent of Meal Consumed 100% Blood Glucose* 366 Abnormal lab results RBC 2.99 M/mcL (4.19-5.50) L 11/11/16 06:24 Hgb 8.8 g/dL (12.9-16.9) L 11/11/16 06:24 Hct 27.1 % (37.5-50.1) L 11/11/16 06:24 Neutrophils # 9.0 K/mcL (1.6-8.9) H 11/11/16 06:24 Reactive Lymphocytes Present (Not Present) A 11/11/16 06:24 ABG pH 7.31 pH Units (7.32-7.45) L 11/08/16 15:31 ABG pO2 63 mmHg (85-104) L 11/08/16 15:31 ABG HCO3 20.1 mEQ/L (21-27) L 11/08/16 15:31 ABG O2 Saturation 89 % (95-98) L 11/08/16 15:31 ABG Base Excess -5.7 mEq/L (-2.0 to 3.0) L 11/08/16 15:31 VBG pH 7.43 pH Units (7.32-7.42) H 11/10/16 05:41 VBG pCO2 31 mmHg (41-51) L 11/10/16 05:41 VBG pO2 88 mmHg (25-40) H 11/10/16 05:41 VBG HCO3 20.6 mEq/L (21-27) L 11/10/16 05:41 Sodium 133 mEq/L (136-145) L 11/11/16 06:24 BUN 63 mg/dL (8-26) H D 11/11/16 06:24 Creatinine 2.07 mg/dL (0.72-1.25) H 11/11/16 06:24 Est GFR ( Amer) 38 (> 60) L 11/11/16 06:24 Est GFR (Non-Af Amer) 31 (> 60) L 11/11/16 06:24 BUN/Creatinine Ratio 30 (6-26) H 11/11/16 06:24 Glucose 254 mg/dL (70-99) H 11/11/16 06:24 POC Glucose 366 (58-89) H 11/11/16 10:59 Hemoglobin A1c 6.4 % (-5.6) H 11/10/16 05:41 Calculated Osmolality 303 (280-300) H 11/11/16 06:24 Calcium 8.0 mg/dL (8.6-10.8) L 11/11/16 06:24 Troponin I 0.41 ng/mL (0-0.03) H* 11/09/16 08:58 B-Natriuretic Peptide 891 pg/mL (0-100) H 11/08/16 15:27 Albumin 3.3 g/dL (3.5-5.0) L 11/08/16 15:27 Globulin 3.9 g/dL (2.4-3.5) H 11/08/16 15:27 Albumin/Globulin Ratio 0.8 (1.1-2.2) L 11/08/16 15:27 Urine Clarity Cloudy (Clear) A 11/08/16 16:00 Urine Protein >=300 mg/dL (Neg-Trace) H 11/08/16 16:00 Urine Blood Small (Negative) H 11/08/16 16:00 Granular Casts Few per lpf (None Seen) H 11/08/16 16:00 U Benzodiazepines Scrn Positive ng/mL (Veockn=345) H 11/10/16 23:20 Human Metapneumovirus DETECTED (Not Detect) A 11/09/16 06:25
[2016-11-10] MEDS: *HR* Enoxaparin 100 MG/ML SYRINGE SQ SCH (04:56)
[2016-11-10] MEDS ORDERED: ALPRAZolam 0.5 MG TABLET PO ONE (05:27)
[2016-11-10 05:50] LABS: VBG HCO3 20.6 mEq/L (21-27); VBG PH 7.43 pH Units (7.32-7.42)
[2016-11-10 05:57] LABS: Basophils % 0.1 %; Eosinophils % 0.1 %; Hematocrit 29.3 % (37.5-50.1); Hemoglobin 9.3 g/dL (12.9-16.9); Immature Granulocytes % 1.1 % (0-4); Lymphocytes # 0.9 K/mcL (0.6-4.6); Lymphocytes % 5.8 %; Mean Corpuscular HGB Conc 31.7 g/dL (31.6-35.5); Mean Corpuscular Hemoglobin 28.7 pg (28.0-33.3); Mean Corpuscular Volume 90.4 fL (83.0-100.0); Mean Platelet Volume 10.2 fL (9.4-12.4); Monocytes # 0.7 K/mcL (0.0-1.3); Monocytes % 4.4 %; Neutrophils # 13.1 K/mcL (1.6-8.9); Platelet Count 242 K/mcL (140-400); Red Blood Count 3.24 M/mcL (4.19-5.50); Red Cell Distribution Width 12.6 % (11.5-14.5); Segmented Neutrophils % 88.5 %
[2016-11-10 05:58] LABS: INR 1.2; Prothrombin Time 12.8 Seconds (9.4-12.1)
[2016-11-10 06:02] LABS: Calcium 7.9 mg/dL (8.6-10.8)
[2016-11-10 06:15] LABS: Hemoglobin A1C 6.4 %
[2016-11-10 06:24] LABS: Thyroid Stimulating Hormone 0.713 mcIU/mL (0.350-4.840)
[2016-11-10] MEDS: Insulin LISPRO 300 UNITS/3 ML VIAL SQ SCH ×4 (07:53→21:34)
--- NOTE | 2016-11-10 08:04 | Cardiology Progress Note ---
Date of Encounter: 11/10/16 Time of Encounter: 08:30 Assessment and Plan (1) Community acquired pneumonia Current Visit: Yes Status: Acute Per Cardiology: Being managed by primary service and on antibiotics. Suspect contributing factor to A. fib with RVR and elevated troponins. (2) A-fib Current Visit: Yes Status: Acute Per Cardiology: Known history of paroxysmal atrial fibrillation. Nonexercise nuclear stress test negative for ischemia October 2016. Echocardiogram October 2016 showed EF preserved at 60%, mild diastolic dysfunction, mild aortic, mild pulmonary hypertension, no segmental wall motion abnormalities. Remains atrial fibrillation with average heart rate the past 12 hours 109. Episodes of what appears to be rate dependent left bundle branch block-- reviewed and discussed with Dr. Long. On Cardizem CD 360mg by mouth daily. Will add Lopressor 25 mg by mouth twice a day. Systolic blood pressures running 120s to 140s. Continue to monitor telemetry and SBP. TSH ok. Regarding long-term anticoagulation, recently seen by cardiology and started on Coumadin for stroke prevention, however discontinued by PCP for concerns of anemia and reports of melena stools as an outpatient. Anticoagulation currently on hold due to pending outpatient GI evaluation. Patient and family aware of increased stroke risk. He denies any current active bleeding or blood loss. On Lovenox, will DC d/t anemia and worsening kidney function. Has orders for bilateral SCDs for DVT prophylaxis. Qualifiers: Atrial fibrillation type: paroxysmal Qualified Code(s): I48.0 - Paroxysmal atrial fibrillation (3) Elevated troponin Current Visit: Yes Status: Acute Per Cardiology: Troponins flat and relatively adynamic with elevations of 0.21, 0.32, 0.39, and 0.41 in setting of A. fib with RVR, suspected pneumonia with respiratory distress/hypoxia, and hypoglycemic episode with unresponsiveness. Patient denies any chest pain. Recent nuclear stress test negative for ischemia. Suspect type II demand ischemia. Do not suspect non-STEMI. No cardiac rehabilitation warranted at this time. Again, recent echo showed EF preserved with no segmental wall motion abnormalities. 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 Kidney function slightly worsening. We'll continue to decrease JESSE inhibitor for now d/t worsening kidney function and to allow for rate control medication titration. Will decrease IV Lasix from 40 mg IV twice a day to 40 mg IV daily. Consider nephrology consult if deemed clinically appropriate. Stopping Lovenox. (5) CHF (congestive heart failure) Current Visit: Yes Status: Acute Per Cardiology: Echo shows preserved EF with mild diastolic dysfunction. Suspect mild acute diastolic heart failure. BNP mildly elevated in 800s. According to records, net negative I&O -2400 mL. We'll decrease Lasix due to worsening kidney function. Respiratory status improving. Qualifiers: Congestive heart failure type: diastolic Congestive heart failure chronicity: acute on chronic Qualified Code(s): I50.33 - Acute on chronic diastolic (congestive) heart failure (6) LBBB (left bundle branch block) Current Visit: Yes Status: Chronic Per Cardiology: Left bundle branch block noted on ECG from cardiology office visit. Appears to have rate dependent LBBB on tele. Discussion w patient/family: The assessment and plan as outlined above was discussed with the patient and/or family members who expressed understanding and agreement. All questions were answered. Thank you for involving us in the care of your patient. Please call with any questions. Subjective Principal diagnosis: Elevated Troponin, Afib RVR Interval history: Previous records reviewed and patient had apparent episode of confusion yesterday evening. at bedside and patient currently alert and oriented 3. Reports overall he shortness of breath continues to improve. He denies any chest pain or palpitations. Denies any dizziness. Objective Vital Signs, Last 4 Hours Temp Pulse Resp BP Pulse Ox 11/10/16 07:00 97.5 F L 115 16 124/105 95 General: Conversant HEENT: Atraumatic, Normocephaly Cardiac: No Murmur, Other (Irregularly irregular) Lungs: Other (Mildly labored at rest, scattered rhonchi throughout) Neuro: Alert and responsive, No focal deficits noted Abdomen: Soft, Non-Tender Skin: No rashes noted on visualized skin Musculoskeletal: No Chest Wall Tenderness Extremities: No Edema Results 11/10/16 05:41 11/10/16 05:41 Lab Results Laboratory Tests 11/10/16 11/10/16 05:41 05:41 Hgb 9.3 L Hct 29.3 L Creatinine 2.01 H Est GFR (Non-Af Amer) 32 L TSH 0.[address] 11/08/16 15:11 IMPRESSION: No acute intracranial abnormality. Stable periventricular white matter ischemic changes. D/ / 11/08/2016 17:25:31 Byron Stevens MD / bcarter Interpreting Provider: Byron Stevens MD Intake & Output 11/07/16 11/08/16 11/09/16 11/10/16 23:59 23:59 23:59 23:59 Intake Total 490 / 490 780 / 780 Output Total 800 / 800 2900 / 2900 450 / 450 Balance -310 / -310 -2120 / -2120 -450 / -450 Weight 94.1 kg 93.7 kg 89.3 kg Active Medications Acetaminophen (Tylenol) 650 mg PO Q6HR PRN PRN Reason: Mild Pain (1-3) Stop: 05/10/17 19:56 Last Admin: 11/09/16 00:13 Dose: 650 mg Albuterol/Ipratropium (Duoneb) 3 ml IH [id number] PRN; Protocol PRN Reason: Shortness Of Breath/Wheezing Stop: 05/10/17 19:55 Alprazolam (Xanax) 0.25 mg PO TID ROQUE PRN Reason: Protocol Stop: 05/12/17 09:01 Aspirin (Aspirin) 81 mg PO DAILY ROQUE Stop: 05/10/17 20:16 Last Admin: 11/09/16 10:38 Dose: 81 mg Azithromycin (Zithromax) 250 mg PO DAILY ROQUE Stop: 11/12/16 09:01 Last Admin: 11/09/16 10:38 Dose: 250 mg Benzonatate (Tessalon) 200 mg PO TID PRN PRN Reason: Cough Stop: 05/12/17 03:33 Dextrose/Water (Dextrose 50% (Syg)) 25 ml IVP AD PRN PRN Reason: Hypoglycemia Stop: 05/10/17 19:56 Last Admin: 11/08/16 22:25 Dose: 25 ml Diltiazem HCl (Cardizem Cd) 360 mg PO DAILY ROQUE Stop: 05/12/17 09:01 Enoxaparin Sodium (Lovenox) 100 mg SQ Q12H ROQUE PRN Reason: Protocol Stop: 05/11/17 06:01 Last Admin: 11/10/16 04:56 Dose: 100 mg Folic Acid (Folic Acid) 1 mg PO DAILY [facility] Stop: 05/12/17 09:01 Furosemide (Lasix) 40 mg IV BID [facility] Stop: 05/10/17 21:01 Last Admin: 11/09/16 19:55 Dose: 40 mg Glucagon (Glucagen) 1 mg IM ONCE PRN PRN Reason: Hypoglycemia Stop: 05/10/17 19:56 Glucose (Gluctose) 15 gm PO ONCE PRN PRN Reason: Hypoglycemia Stop: 05/10/17 19:56 Last Admin: 11/09/16 08:02 Dose: 15 gm Glucose (Gluctose) 30 gm PO ONCE PRN PRN Reason: Hypoglycemia Stop: 05/10/17 19:56 Guaifenesin (Mucinex) 600 mg PO BID [facility] Stop: 05/12/17 09:01 Haloperidol Lactate (Haldol) 1 mg IVP Q6HR PRN PRN Reason: Agitation Stop: 05/12/17 03:33 Ceftriaxone Sodium 1,000 mg/ (Dextrose) 100 mls @ 200 mls/hr IVPB Q24H [facility] Stop: 05/10/17 20:01 Last Admin: 11/09/16 19:55 Dose: 200 mls/hr Dextrose (Dextrose 5%) 1,000 mls @ 100 mls/hr IV CONT PRN PRN Reason: HYPOGLYCEMIA Stop: 05/10/17 19:56 Insulin Human Lispro (Humalog) 0 units SQ TIDAC [facility] PRN Reason: Protocol Stop: 05/11/17 07:31 Last Admin: 11/10/16 07:53 Dose: Not Given Insulin Human Lispro (Humalog) 0 units SQ HS [facility] PRN Reason: Protocol Stop: 05/10/17 21:01 Last Admin: 11/09/16 21:12 Dose: Not Given Lisinopril (Zestril) 40 mg PO DAILY [facility] Stop: 05/12/17 09:01 Lorazepam (Ativan) 1 mg IVP Q6HR PRN PRN Reason: Anxiety Stop: 05/12/17 03:33 Morphine Sulfate (Morphine Sulfate) 2 mg IV Q3H PRN PRN Reason: Pain Stop: 05/10/17 19:55 Naloxone HCl (Narcan) 0.4 mg IVP Q2MIN PRN PRN Reason: Opioid Reversal Stop: 05/10/17 19:56 Omeprazole (Prilosec) 40 mg PO DAILY@0630 ROQUE PRN Reason: Protocol Stop: 05/11/17 06:31 Last Admin: 11/10/16 04:56 Dose: 40 mg Ondansetron HCl (Zofran) 4 mg IVP Q8HR PRN PRN Reason: Nausea And Vomiting Stop: 05/10/17 19:56 Quetiapine Fumarate (Seroquel) 25 mg PO BID PRN PRN Reason: Agitation Stop: 05/12/17 03:33 Thiamine HCl (Vitamin B-1) 100 mg PO DAILY [facility] Stop: 05/12/17 09:01 Vitamin B Complex/Vit C/Vit E (Stresstab) 1 each PO DAILY [facility] Stop: 05/12/17 09:01 - EKG Interpretation EKG results cardiology: other (Telemetry reviewed with average heart rate past 12 hours 106, remains A. fib with episodes of what appears to be rate dependent left bundle branch block-- reviewed and discussed with Dr. Long) Consult Discharge Plan - Plan Referrals: Nicanor Araujo Jr, MD [Primary Care Provider] - Jennifer Fu CNP [Advanced Practice Nurse] - 11/17/16 9:40 am (HOSPITAL FOLLOW UP)
[2016-11-10] MEDS ORDERED: Lisinopril 20 MG TABLET PO SCH (09:00)
[2016-11-10] MEDS: Thiamine (B-1) 100 MG TABLET PO SCH (09:13)
[2016-11-10] MEDS: Aspirin 81 MG TAB.CHEW PO SCH (09:13)
[2016-11-10] MEDS: Azithromycin 250 MG TABLET PO SCH (09:13)
[2016-11-10] MEDS: Furosemide 40 MG/4 ML VIAL IV SCH (09:13)
[2016-11-10] MEDS: Folic Acid 1 MG TABLET PO SCH (09:13)
[2016-11-10] MEDS: Diltiazem CD (24hr) 180 MG CAPSULE PO SCH (09:13)
[2016-11-10] MEDS: Vitamin B Complex/Vit C/Vit E 1 EACH TABLET PO SCH (09:13)
[2016-11-10] MEDS: ALPRAZolam 0.25 MG TABLET PO SCH ×3 (09:13→21:27)
--- NOTE | 2016-11-10 10:28 | Internal Med Progress Note ---
Addendum entered and electronically signed by Erika Cardoza DO 11/10/16 16:31: Brain MRI with remote cerebellar infarct, no acute process. Ordered for PT/OT Original Note: <Erika Cardoza - Last Filed: 11/10/16 16:29> Date of Encounter: 11/10/16 Time of Encounter: 10:15 - Assessment and plan (1) Acute respiratory failure Current Visit: Yes Status: Acute Assessment and plan: Per ABG, likely multifactorial 2* CHF exacerbation and pneumonia. Qualifiers: Respiratory failure complication: hypoxia Qualified Code(s): J96.01 - Acute respiratory failure with hypoxia (2) (HFpEF) heart failure with preserved ejection fraction Current Visit: Yes Status: Acute Assessment and plan: 10/17/16 Echo EF 60%, mild concentric LVH, mild left ventricular diastolic dysfunction. Mild AR, Mild PAH RVSP 39 Evidenced clinically with crackles on pulmonary exam, LE edema, CXR Continue diuresis regimen, cont to monitor I/O, weights, fluid guidelines. (3) Community acquired pneumonia Current Visit: Yes Status: Acute Assessment and plan: Rocephin/Azithromycin started 11/08/16, Day #3 Evidenced on CXR New bilateral airspace disease suggestive of pulmonary edema. There is slightly more focal consolidation in the right upper lung and left mid lung and superimposed pneumonia not excluded. Respiratory infectious panel would be positive for human metapneumovirus. Likely cardiogenic pulmonary edema contributory. Superimposed bacterial pneumonia is not ruled out. 11/10/16 Clinically with wheeze, warrants continued hospitalization. (4) Elevated troponin Current Visit: Yes Status: Acute Assessment and plan: Adynamic in setting of pneumonia and CHF exacerbation. Appreciate cardiology input. (5) A-fib Current Visit: Yes Status: Acute Assessment and plan: Rate controlled with Cardizem. Per Cardiology note, increasing dose of Cardizem. CHADVASC 4, appropriate for long-term anticoagulation. He was seen by PCP Dr. Araujo 11/01/16, with anemia and melanotic stools, so anticoagulation was held. Discussed with patient, he is aware of increased risk of stroke and embolic events. Qualifiers: Atrial fibrillation type: paroxysmal Qualified Code(s): I48.0 - Paroxysmal atrial fibrillation (6) DVT prophylaxis Current Visit: Yes Status: Acute Assessment and plan: EPCDs - Subjective Interval history: Patient seen/eval at bedside. Events overnight noted, discussed with resident Dr. Friedman. He affirms taking xanax regimen at home. He is able to affirm full name, place ( 2nd floor [facility]), time. at bedside. Patient denies any fever, chills, substernal chest discomfort, nvd. He does have sensation of pleurisy with nonproductive cough, feels breathing can be tight. - Constitutional Vitals: Temp Pulse Resp BP Pulse Ox 97.5 F L 115 16 124/105 95 11/10/16 07:00 11/10/16 07:00 11/10/16 07:00 11/10/16 07:00 11/10/16 07:00 General appearance: Present: A&O X 3, pleasant, answers questions appropriately - Head Head exam: Present: atraumatic, normocephalic - Eye Eye exam: Present: EOMI, sclera anicteric - ENT ENT exam: Present: mucous membranes moist - Neck Neck exam general surgery: Present: supple, trachea midline - Respiratory Respiratory exam: Present: rhonchi (pronounced end exp ronchi, all friedman, R>L, with occasional wheeze.). Absent: accessory muscle use, stridor - Cardiovascular Cardiovascular exam: Present: irregular rhythm, +S1, +S2. Absent: JVD - GI/Abdominal GI/Abdominal exam: Present: soft, no peritoneal signs. Absent: tenderness - Extremities Exam Extremities exam: Present: pedal edema (1+ bilateral pretibial pitting edema to mid ankles.) - Neurological Exam Neurological exam: Present: strengths equal and symetr throughout Internal Medicine: Result - Labs CBC & Chem 7: 11/10/16 05:41 11/10/16 05:41 Labs: Short CBC 11/10/16 Range/Units 05:41 WBC 14.8 H (4.3-11.1) K/mcL Hgb 9.3 L (12.9-16.9) g/dL Hct 29.3 L (37.5-50.1) % Plt Count 242 (140-400) K/mcL Neutrophils # 13.1 H (1.6-8.9) K/mcL BMP 11/10/16 05:41 Sodium 136 Potassium 4.0 Chloride 106 Carbon Dioxide 19 BUN 50 H Creatinine 2.01 H Glucose 103 H Calcium 7.9 L - ABG Interpretation ABG results: ABG ABG pH 7.31 pH Units (7.32-7.45) L 11/08/16 15:31 ABG pCO2 40 mmHg (35-45) 11/08/16 15:31 ABG pO2 63 mmHg (85-104) L 11/08/16 15:31 ABG O2 Saturation 89 % (95-98) L 11/08/16 15:31 PT/INR, D-dimer PT 12.8 Seconds (9.4-12.1) H 11/10/16 05:41 - Impressions Impressions Brain MRI 11/10/16 03:37 IMPRESSION: No acute intracranial abnormality. 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 Mild parenchymal volume loss. Moderate chronic microvascular disease. Sinus mucosal disease and trace bilateral mastoid effusions. D/ / Weston Mayer MD / Weston Mayer MD Interpreting Provider: Weston Mayer MD Consult Discharge Plan - Plan Referrals: Nicanor Araujo Jr, MD [Primary Care Provider] - Jennifer Fu CNP [Advanced Practice Nurse] - 11/17/16 9:40 am (HOSPITAL FOLLOW UP) <Jose Antonio Ruff - Last Filed: 11/10/16 17:17> Date of Encounter: 11/10/16 - Constitutional Vitals: Temp Pulse Resp BP Pulse Ox 98.4 F 66 18 110/69 96 11/10/16 16:00 11/10/16 16:00 11/10/16 16:00 11/10/16 16:00 11/10/16 16:00 Internal Medicine: Result - Labs CBC & Chem 7: 11/10/16 05:41 11/10/16 05:41 Labs: Short CBC 11/10/16 Range/Units 05:41 WBC 14.8 H (4.3-11.1) K/mcL Hgb 9.3 L (12.9-16.9) g/dL Hct 29.3 L (37.5-50.1) % Plt Count 242 (140-400) K/mcL Neutrophils # 13.1 H (1.6-8.9) K/mcL BMP 11/10/16 05:41 Sodium 136 Potassium 4.0 Chloride 106 Carbon Dioxide 19 BUN 50 H Creatinine 2.01 H Glucose 103 H Calcium 7.9 L - ABG Interpretation ABG results: ABG ABG pH 7.31 pH Units (7.32-7.45) L 11/08/16 15:31 ABG pCO2 40 mmHg (35-45) 11/08/16 15:31 ABG pO2 63 mmHg (85-104) L 11/08/16 15:31 ABG O2 Saturation 89 % (95-98) L 11/08/16 15:31 PT/INR, D-dimer PT 12.8 Seconds (9.4-12.1) H 11/10/16 05:41 - Impressions Impressions Brain MRI 11/10/16 03:37 IMPRESSION: No acute intracranial abnormality. 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 Mild parenchymal volume loss. Moderate chronic microvascular disease. Sinus mucosal disease and trace bilateral mastoid effusions. D/ / Weston Mayer MD / Weston Mayer MD Interpreting Provider: Weston Mayer MD - Attending Attestation I examined this patient and my medical decision-making was reviewed with the DATA WAREHOUSING ENGINEER/PA/Advanced Practice Nurse/Resident Physician. I agree with the documented findings, disposition and treatment plan as described except to the extent set forth below. CAP and heartfailure with fluid overload. Continue with antibiotics and diuretics. Requires oxygen, woll try to wean him off.
[2016-11-10] MEDS: predniSONE 20 MG TABLET PO SCH (11:01)
--- NOTE | 2016-11-10 16:22 | Electrocardiograph Report ---
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
[2016-11-10] MEDS: *HR* Heparin 5,000 UNIT/ML VIAL SQ SCH (17:52)
[2016-11-10 23:41] LABS: Amphetamine Screen,Urine Negative ng/mL (Cutoff=1000); Barbiturate Screen,Urine Negative ng/mL (Cutoff=200); Benzodiazepines Screen,Urine Positive ng/mL (Cutoff=200); Cannabinoid Screen,Urine Negative ng/mL (Cutoff = 50); Cocaine Screen,Urine Negative ng/mL (Cutoff= 300); Opiate Screen,Urine Negative ng/mL (Cutoff=300); Phencyclidine Screen,Urine Negative ng/mL (Cutoff=25)
[2016-11-11] MEDS: *HR* Heparin 5,000 UNIT/ML VIAL SQ SCH (06:34)
[2016-11-11 06:59] LABS: Prothrombin Time 11.1 Seconds (9.4-12.1)
[2016-11-11 07:09] LABS: Potassium 4.5 mEq/L (3.5-4.5)
--- NOTE | 2016-11-11 07:17 | Cardiology Progress Note ---
Date of Encounter: 11/11/16 Time of Encounter: 07:30 Assessment and Plan (1) Community acquired pneumonia Current Visit: Yes Status: Acute Per Cardiology: Being managed by primary service and on antibiotics and steroids. Suspect contributing factor to A. fib with RVR and elevated troponins. (2) A-fib Current Visit: Yes Status: Acute Per Cardiology: Known history of paroxysmal atrial fibrillation. Nonexercise nuclear stress test negative for ischemia October 2016. Echocardiogram October 2016 showed EF preserved at 60%, mild diastolic dysfunction, mild aortic, mild pulmonary hypertension, no segmental wall motion abnormalities. TSH ok. Remains atrial fibrillation with average heart rate the past 12 hours 77. Episodes of what appears to be rate dependent left bundle branch block-- less frequent now. On Cardizem CD 360mg by mouth daily and Lopressor 25 mg by mouth twice a day. Systolic blood pressures running 110s to 1200s. Continue to monitor telemetry and SBP. Discussed with Dr. Long. Cardiology will sign off, re-consult as needed, follow-up as outpatient. Patient and agreeable to plan. Regarding long-term anticoagulation, recently seen by cardiology and started on Coumadin for stroke prevention, however discontinued by PCP for concerns of anemia and reports of melena stools as an outpatient. Anticoagulation currently on hold due to pending outpatient GI evaluation. Patient and family aware of increased stroke risk. He denies any current active bleeding or blood loss. Now on SQ Heparin per primary service. Qualifiers: Atrial fibrillation type: paroxysmal Qualified Code(s): I48.0 - Paroxysmal atrial fibrillation (3) Elevated troponin Current Visit: Yes Status: Acute Per Cardiology: Troponins flat and relatively adynamic with elevations of 0.21, 0.32, 0.39, and 0.41 in setting of A. fib with RVR, pneumonia with respiratory distress/hypoxia , and hypoglycemic episode with unresponsiveness. Patient denies any chest pain. Recent nuclear stress test negative for ischemia. Suspect type II demand ischemia. Do not suspect non-STEMI. No cardiac rehabilitation warranted at this time. Again, recent echo showed EF preserved with no segmental wall motion abnormalities. 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 Kidney function slightly worsened. Will discontinue IV Lasix and JESSE inhibitor for now. Recommend resuming once kidney function improves. Consider nephrology consult if deemed clinically appropriate. (5) CHF (congestive heart failure) Current Visit: Yes Status: Acute Per Cardiology: Echo shows preserved EF with mild diastolic dysfunction. Suspect mild acute diastolic heart failure. BNP mildly elevated in 800s. According to records, net negative I&O -2275 mL. Respiratory status improved. Will DC IV Lasix due to worsening kidney function. Consider addition of PO Lasix once kidney function improves. Qualifiers: Congestive heart failure type: diastolic Congestive heart failure chronicity: acute on chronic Qualified Code(s): I50.33 - Acute on chronic diastolic (congestive) heart failure (6) LBBB (left bundle branch block) Current Visit: Yes Status: Chronic Per Cardiology: Left bundle branch block noted on ECG from cardiology office visit. Appears to have rate dependent LBBB on tele. Discussion w patient/family: The assessment and plan as outlined above was discussed with the patient and/or family members who expressed understanding and agreement. All questions were answered. Thank you for involving us in the care of your patient. Please call with any questions. Subjective Principal diagnosis: Elevated Troponin, Afib RVR Interval history: Patient seen today with at bedside. They deny any recurrent episodes of confusion throughout the night. He reports his short of breath continues to improve. Denies any chest pain or palpitations. Objective Vital Signs, Last 4 Hours Temp Pulse Resp BP Pulse Ox 11/11/16 07:05 97.7 F 78 18 117/79 96 11/11/16 04:00 84 18 121/78 98 General: Conversant, No Apparent Distress Cardiac: No Murmur, Other (Irregular irregular) Lungs: Other (Scattered rhonchi to bilateral bases) Neuro: Alert and responsive, No focal deficits noted Skin: No rashes noted on visualized skin Extremities: No Edema Results 11/11/16 06:24 11/11/16 06:24 Lab Results Laboratory Tests 11/08/16 11/11/16 15:27 06:24 Creatinine 1.85 H 2.07 H Est GFR ( Amer) 38 L Est GFR (Non-Af Amer) 35 L 31 L Impressions Brain MRI 11/10/16 03:37 IMPRESSION: No acute intracranial abnormality. 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 Mild parenchymal volume loss. Moderate chronic microvascular disease. Sinus mucosal disease and trace bilateral mastoid effusions. D/ / Weston Mayer MD / Weston Mayer MD Interpreting Provider: Weston Mayer MD Intake & Output 11/08/16 11/09/16 11/10/16 11/11/16 23:59 23:59 23:59 23:59 Intake Total 490 / 490 880 / 880 1080 / 1080 Output Total 800 / 800 2900 / 2900 1025 / 1025 Balance -310 / -310 -2019 / 55 / 55 Weight 94.1 kg 93.7 kg 89.3 kg 89.3 kg Active Medications Acetaminophen (Tylenol) 650 mg PO Q6HR PRN PRN Reason: Mild Pain (1-3) Stop: 05/10/17 19:56 Last Admin: 11/09/16 00:13 Dose: 650 mg Albuterol/Ipratropium (Duoneb) 3 ml IH [id number] PRN; Protocol PRN Reason: Shortness Of Breath/Wheezing Stop: 05/10/17 19:55 Alprazolam (Xanax) 0.25 mg PO TID ROQUE PRN Reason: Protocol Stop: 05/12/17 09:01 Last Admin: 11/10/16 21:27 Dose: 0.25 mg Aspirin (Aspirin) 81 mg PO DAILY ROQUE Stop: 05/10/17 20:16 Last Admin: 11/10/16 09:13 Dose: 81 mg Azithromycin (Zithromax) 250 mg PO DAILY [facility] Stop: 11/12/16 09:01 Last Admin: 11/10/16 09:13 Dose: 250 mg Benzonatate (Tessalon) 200 mg PO TID PRN PRN Reason: Cough Stop: 05/12/17 03:33 Dextrose/Water (Dextrose 50% (Syg)) 25 ml IVP AD PRN PRN Reason: Hypoglycemia Stop: 05/10/17 19:56 Last Admin: 11/08/16 22:25 Dose: 25 ml Diltiazem HCl (Cardizem Cd) 360 mg PO DAILY [facility] Stop: 05/12/17 09:01 Last Admin: 11/10/16 09:13 Dose: 360 mg Folic Acid (Folic Acid) 1 mg PO DAILY [facility] Stop: 05/12/17 09:01 Last Admin: 11/10/16 09:13 Dose: 1 mg Furosemide (Lasix) 40 mg IV DAILY [facility] Stop: 05/13/17 09:01 Glucagon (Glucagen) 1 mg IM ONCE PRN PRN Reason: Hypoglycemia Stop: 05/10/17 19:56 Glucose (Gluctose) 15 gm PO ONCE PRN PRN Reason: Hypoglycemia Stop: 05/10/17 19:56 Last Admin: 11/09/16 08:02 Dose: 15 gm Glucose (Gluctose) 30 gm PO ONCE PRN PRN Reason: Hypoglycemia Stop: 05/10/17 19:56 Guaifenesin (Mucinex) 600 mg PO BID [facility] Stop: 05/12/17 09:01 Last Admin: 11/10/16 21:27 Dose: 600 mg Heparin Sodium (Porcine) (Heparin) 5,000 unit SQ Q12HR [facility] Stop: 05/12/17 18:01 Last Admin: 11/11/16 06:34 Dose: 5,000 unit Ceftriaxone Sodium 1,000 mg/ (Dextrose) 100 mls @ 200 mls/hr IVPB Q24H [facility] Stop: 05/10/17 20:01 Last Admin: 11/10/16 21:25 Dose: 200 mls/hr Dextrose (Dextrose 5%) 1,000 mls @ 100 mls/hr IV CONT PRN PRN Reason: HYPOGLYCEMIA Stop: 05/10/17 19:56 Insulin Human Lispro (Humalog) 0 units SQ TIDAC [facility] PRN Reason: Protocol Stop: 05/11/17 07:31 Last Admin: 11/10/16 17:52 Dose: 6 units Insulin Human Lispro (Humalog) 0 units SQ HS [facility] PRN Reason: Protocol Stop: 05/10/17 21:01 Last Admin: 11/10/16 21:34 Dose: 6 units Lisinopril (Zestril) 20 mg PO DAILY [facility] Stop: 05/13/17 09:01 Metoprolol Tartrate (Lopressor) 25 mg PO BID [facility] Stop: 05/12/17 11:01 Last Admin: 11/10/16 21:41 Dose: 25 mg Morphine Sulfate (Morphine Sulfate) 2 mg IV Q3H PRN PRN Reason: Pain Stop: 05/10/17 19:55 Naloxone HCl (Narcan) 0.4 mg IVP Q2MIN PRN PRN Reason: Opioid Reversal Stop: 05/10/17 19:56 Omeprazole (Prilosec) 40 mg PO DAILY@0630 ROQUE PRN Reason: Protocol Stop: 05/11/17 06:31 Last Admin: 11/11/16 06:34 Dose: 40 mg Ondansetron HCl (Zofran) 4 mg IVP Q8HR PRN PRN Reason: Nausea And Vomiting Stop: 05/10/17 19:56 Prednisone (Prednisone) 40 mg PO DAILY [facility] Stop: 11/15/16 10:16 Last Admin: 11/10/16 11:01 Dose: 40 mg Quetiapine Fumarate (Seroquel) 25 mg PO BID PRN PRN Reason: Agitation Stop: 05/12/17 03:33 Thiamine HCl (Vitamin B-1) 100 mg PO DAILY [facility] Stop: 05/12/17 09:01 Last Admin: 11/10/16 09:13 Dose: 100 mg Vitamin B Complex/Vit C/Vit E (Stresstab) 1 each PO DAILY [facility] Stop: 05/12/17 09:01 Last Admin: 11/10/16 09:13 Dose: 1 each - EKG Interpretation EKG results cardiology: other (Telemetry reviewed with average heart rate the past 12 hours 77, atrial fibrillation) Consult Discharge Plan - Plan Referrals: Nicanor Araujo Jr, MD [Primary Care Provider] - Jennifer Fu CNP [Advanced Practice Nurse] - 11/17/16 9:40 am (HOSPITAL FOLLOW UP)
[2016-11-11 07:23] LABS: Basophils % 0.1 %; Hematocrit 27.1 % (37.5-50.1); Hemoglobin 8.8 g/dL (12.9-16.9); Immature Granulocytes % 0.9 % (0-4); Lymphocytes # 0.8 K/mcL (0.6-4.6); Lymphocytes % 7.5 %; Mean Corpuscular HGB Conc 32.5 g/dL (31.6-35.5); Mean Corpuscular Hemoglobin 29.4 pg (28.0-33.3); Mean Corpuscular Volume 90.6 fL (83.0-100.0); Mean Platelet Volume 10.3 fL (9.4-12.4); Monocytes # 0.6 K/mcL (0.0-1.3); Monocytes % 5.7 %; Platelet Count 256 K/mcL (140-400); Red Blood Count 2.99 M/mcL (4.19-5.50); Red Cell Distribution Width 12.7 % (11.5-14.5); Segmented Neutrophils % 85.8 %
[2016-11-11 07:55] LABS: Platelet Estimate Normal (Normal); Reactive Lymphocytes Present (Not Present)
[2016-11-11] MEDS ORDERED: 0.9 % Sodium Chloride 250 ML IVC ONE (08:05)
[2016-11-11] MEDS ORDERED: Furosemide 40 MG/4 ML VIAL IV SCH (09:00)
[2016-11-11] MEDS ORDERED: Lisinopril 20 MG TABLET PO SCH (09:00)
[2016-11-11] MEDS: Insulin LISPRO 300 UNITS/3 ML VIAL SQ SCH ×2 (09:44→12:08)
[2016-11-11] MEDS: Aspirin 81 MG TAB.CHEW PO SCH (09:47)
[2016-11-11] MEDS: ALPRAZolam 0.25 MG TABLET PO SCH (09:47)
[2016-11-11] MEDS: Diltiazem CD (24hr) 180 MG CAPSULE PO SCH (09:47)
[2016-11-11] MEDS: Vitamin B Complex/Vit C/Vit E 1 EACH TABLET PO SCH (09:47)
[2016-11-11] MEDS: Azithromycin 250 MG TABLET PO SCH (09:47)
[2016-11-11] MEDS: Thiamine (B-1) 100 MG TABLET PO SCH (09:47)
[2016-11-11] MEDS: Folic Acid 1 MG TABLET PO SCH (09:47)
[2016-11-11] MEDS: predniSONE 20 MG TABLET PO SCH (09:51)
--- NOTE | 2016-11-11 10:00 | Discharge Summary ---
Addendum entered and electronically signed by Erika Cardoza DO 11/11/16 14:01: Counseled patient on medications. He will hold lisinopril until seen by Dr. Araujo. He may substitute thiamin/B-complex/Folate with an OTC multivitamin. Patient will monitor HR at home, may hold Metoprolol until seen by Dr. Araujo. Patient and family voiced understanding. Original Note: <Erika Cardoza - Last Filed: 11/11/16 12:03> Date of Encounter: 11/11/16 Time of Encounter: 09:45 - Discharge Diagnosis (1) Acute respiratory failure Priority: Primary Status: Acute Qualifiers: Respiratory failure complication: hypoxia Qualified Code(s): J96.01 - Acute respiratory failure with hypoxia (2) (HFpEF) heart failure with preserved ejection fraction Priority: Primary Status: Acute (3) Community acquired pneumonia Priority: Primary Status: Acute (4) Elevated troponin Priority: Secondary Status: Acute (5) A-fib Priority: Secondary Status: Chronic Qualifiers: Atrial fibrillation type: paroxysmal Qualified Code(s): I48.0 - Paroxysmal atrial fibrillation (6) DVT prophylaxis Priority: Secondary Status: Acute - Discharge Medications Prescriptions: Aspirin 81 mg PO DAILY #30 tab.chew Azithromycin [Zithromax] 250 mg PO DAILY #2 tablet Benzonatate [Tessalon] 200 mg PO TID PRN #12 capsule PRN Reason: Cough Diltiazem CD (24hr) [Cardizem CD] 360 mg PO DAILY #60 cap.er.24h Folic Acid 1 mg PO DAILY #30 tablet Metoprolol [Lopressor] 25 mg PO BID #40 tablet PredniSONE 40 mg PO DAILY #6 tablet Thiamine (B-1) [Vitamin B-1] 100 mg PO DAILY #30 tablet Vitamin B Complex/Vit C/Vit E [Stresstab] 1 each PO DAILY #30 tablet Home Medications: Alprazolam [Xanax 0.5 MG Tablet] 0.5 mg PO TID PRN 01/16/16 [History] Glimepiride [Amaryl] 4 mg PO QAM 01/16/16 [History] Lisinopril [Zestril] 40 mg PO BID 01/16/16 [History] Sitagliptin Phosphate [Januvia] 50 mg PO DAILY #0 03/13/16 [History] Amlodipine [Norvasc] 5 mg PO DAILY #30 tablet 01/17/16 [Rx] Aspirin 81 mg PO DAILY #30 tab.chew 11/11/16 [Rx] Azithromycin [Zithromax] 250 mg PO DAILY #2 tablet 11/11/16 [Rx] Benzonatate [Tessalon] 200 mg PO TID PRN #12 capsule 11/11/16 [Rx] Diltiazem CD (24hr) [Cardizem CD] 360 mg PO DAILY #60 cap.er.24h 11/11/16 [Rx] Folic Acid 1 mg PO DAILY #30 tablet 11/11/16 [Rx] Metoprolol [Lopressor] 25 mg PO BID #40 tablet 11/11/16 [Rx] PredniSONE 40 mg PO DAILY #6 tablet 11/11/16 [Rx] Thiamine (B-1) [Vitamin B-1] 100 mg PO DAILY #30 tablet 11/11/16 [Rx] Vitamin B Complex/Vit C/Vit E [Stresstab] 1 each PO DAILY #30 tablet 11/11/16 [ Rx] Allergies/Adverse Reactions: Allergies Penicillins Allergy (Verified 01/16/16 11:27) Hives Procedures/tests Complete & Pending: Procedures Performed prior 72 hours Category Date Time Status MR head/brain wo con [MR] Routine MRI 11/10/16 03:37 Completed ECG 12 lead ECG [ECG] Routine Y 11/09/16 12:00 Completed Date of admission: 11/08/16 18:48 Primary care physician: Nicanor Araujo Jr, MD Consults: 11/08/16 22:44 Consult to Cardiology [CONS] Routine Comment: Consulting Provider: Cardiology Ann Reason for Consult: NSTEMI Call Completed: No 11/09/16 14:55 Consult to Occupational Therapy [CONS] Routine Comment: Evaluate, develop and implement POC Consult to Physical Therapy [CONS] Routine Comment: Evaluate, develop and implement POC Discharging clinician: Jose Antonio Ruff Anticipated date of discharge: 11/11/16 - Patient Status Disposition: Home Health Service Condition: Good Functional capacity at discharge: independent ambulation Overall status at discharge: patient is progressing back to baseline - Discharge Instructions Instructions: Aspirin/Codeine (By mouth), Benzonatate (By mouth), Metoprolol ( By mouth), Diltiazem (By mouth), Prednisone (By mouth), Thiamine (Vitamin B-1) ( By mouth), Azithromycin (By mouth), Folic Acid (By mouth), Heart Failure (DC), Community-acquired Pneumonia (DC) Follow Up With: Nicanor Araujo Jr, MD [Primary Care Provider] - Jennifer Fu CNP [Advanced Practice Nurse] - 11/17/16 9:40 am (HOSPITAL FOLLOW UP) - Diet and Activity Activity: as per physical therapy Diet: low fat, low cholesterol, low salt diet Hospital course: Mr. 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 Patient would present to [facility] with chief concern: productive cough and dyspnea. He would be started on empiric antibiotic therapy, with respiratory infectious panel disclosing human metapneumovirus. Hospital course: He would improve clinically on azithromycin, systemic steroids. Trope mildly elevated, prompting cardiology consultation. Patient had mild CHF exacerbation, Echocardiogram October 2016 showed EF preserved at 60%, mild diastolic dysfunction, mild aortic, mild pulmonary hypertension, no segmental wall motion abnormalities. Recommend On Cardizem CD 360mg by mouth daily and Lopressor 25 mg by mouth twice a day. He continued cardiac diet, monitoring I/O, supportive care for human metapneumovirus. Patient has CKD IIIB, eGFR between 30-45, steady. He may have BMP in 3 days and follow-up with PCP. He affirms taking xanax regimen at home. Regimen 0.5mg Xanax tab TID, prescribed by PCP Dr. Araujo, last Rx 10/21/16 for 30 days, has adequate supply. OARRS reviewed and appropriate. Had overnight episode of disorientation, prompting further eval: Brain MRI with remote cerebellar infarct, no acute process. Ordered for PT/OT: recommend for . At time of discharge, patient was clinically improved, hemodynamically stable, progressing to baseline, and agreeable with plan of care. Patient was advised to seek immediate medical attention for any new or worsening symptoms including but not limited to fever, chills, chest pain, chest pressure, dyspnea, cough, abdominal pain, nausea, vomiting, diarrhea, bloody stool, bloody urine and the patient voiced understanding. Patient will follow-up with primary care physician: Dr. Nicanor Araujo. Per Cardiology: Regarding long-term anticoagulation, recently seen by cardiology and started on Coumadin for stroke prevention, however discontinued by PCP for concerns of anemia and reports of melena stools as an outpatient. Anticoagulation currently on hold due to pending outpatient GI evaluation. Patient and family aware of increased stroke risk. He denies any current active bleeding or blood loss. - Time Spent with Patient Total time spent providing and/or coordinating discharge services: Greater than 30 minutes - Constitutional Vitals: Temp Pulse Resp BP Pulse Ox 97.7 F 78 18 117/79 96 11/11/16 07:05 11/11/16 07:05 11/11/16 07:05 11/11/16 07:05 11/11/16 07:05 General appearance: Present: A&O X 3, pleasant, answers questions appropriately - Head Head exam: Present: atraumatic, normocephalic - Eye Eye exam: Present: EOMI, sclera anicteric - ENT ENT exam: Present: mucous membranes moist - Neck Neck exam general surgery: Present: supple, trachea midline - Respiratory Respiratory exam: Present: rhonchi (scant). Absent: rales, wheezes, tachypnea - Cardiovascular Cardiovascular exam: Present: +S1, +S2. Absent: irregular rhythm, JVD - GI/Abdominal GI/Abdominal exam: Present: soft, no peritoneal signs. Absent: tenderness - Extremities Exam Extremities exam: Present: pedal edema (trace), warm, radial pulses palpable and symetrical. Absent: mottling - Neurological Exam Neurological exam: Absent: facial droop, speech deficit <Jose Antonio Ruff - Last Filed: 11/11/16 14:01> Date of Encounter: 11/11/16 Procedures/tests Complete & Pending: Procedures Performed prior 72 hours Category Date Time Status MR head/brain wo con [MR] Routine MRI 11/10/16 03:37 Completed ECG 12 lead ECG [ECG] Routine Y 11/09/16 12:00 Completed Date of admission: 11/08/16 18:48 Primary care physician: Nicanor Araujo Jr, MD Consults: 11/08/16 22:44 Consult to Cardiology [CONS] Routine Comment: Consulting Provider: Cardiology [facility] Reason for Consult: NSTEMI Call Completed: No 11/09/16 14:55 Consult to Occupational Therapy [CONS] Routine Comment: Evaluate, develop and implement POC Consult to Physical Therapy [CONS] Routine Comment: Evaluate, develop and implement POC Hospital course: Mr. Bowser is a 81 year old male - Time Spent with Patient Total time spent providing and/or coordinating discharge services: - Constitutional Vitals: Temp Pulse Resp BP Pulse Ox 97.2 F L 85 16 149/78 97 11/11/16 10:55 11/11/16 10:55 11/11/16 10:55 11/11/16 10:55 11/11/16 11:32 - Attending Attestation I examined this patient and my medical decision-making was reviewed with the COMPUTER GAME PROGRAMMER/PA/Advanced Practice Nurse/Resident Physician. I agree with the documented findings, disposition and treatment plan as described except to the extent set forth below. COPD exacerbation due to respiratory infection with concomitant fluid overload which responded with diuretics. Stable. Discharge home today.
[2016-11-11 11:02] VITALS: BP 149/78
--- NOTE | 2016-11-11 12:31 | Physician Discharge Referral ---
<Erika Cardoza - Last Filed: 11/11/16 12:31> Home Health/Hosp Referral Info Transfer to: Home Health Attending Provider: Dr. Ruff Provider in Charge Post Discharge: PCP - Diagnosis (1) Acute respiratory failure Status: Acute (2) (HFpEF) heart failure with preserved ejection fraction Status: Acute (3) Community acquired pneumonia Status: Acute (4) Elevated troponin Status: Acute (5) A-fib Status: Chronic (6) DVT prophylaxis Status: Acute - Respiratory Orders Smoking Cessation: Smoking cessation has been advised. For more information, call the [place] Quit Line at 3-812-UBCR-NOW. - Diet/Nutrition Diet/Nutrition Orders: Cardiac - Activity Activity Orders: Up ad autumn - Services Needed Following services are medically necessary services: Physical Therapy, Occupational Therapy - Transfer Medications Prescriptions: Aspirin 81 mg PO DAILY #30 tab.chew Azithromycin [Zithromax] 250 mg PO DAILY #2 tablet Benzonatate [Tessalon] 200 mg PO TID PRN #12 capsule PRN Reason: Cough Diltiazem CD (24hr) [Cardizem CD] 360 mg PO DAILY #60 cap.er.24h PredniSONE 40 mg PO DAILY #6 tablet Home Medications: Alprazolam [Xanax 0.5 MG Tablet] 0.5 mg PO TID PRN 01/16/16 [History] Glimepiride [Amaryl] 4 mg PO QAM 01/16/16 [History] Sitagliptin Phosphate [Januvia] 50 mg PO DAILY #0 01/16/16 [History] Amlodipine [Norvasc] 5 mg PO DAILY #30 tablet 01/17/16 [Rx] Aspirin 81 mg PO DAILY #30 tab.chew 11/11/16 [Rx] Azithromycin [Zithromax] 250 mg PO DAILY #2 tablet 11/11/16 [Rx] Benzonatate [Tessalon] 200 mg PO TID PRN #12 capsule 11/11/16 [Rx] Diltiazem CD (24hr) [Cardizem CD] 360 mg PO DAILY #60 cap.er.24h 11/11/16 [Rx] PredniSONE 40 mg PO DAILY #6 tablet 11/11/16 [Rx] Allergies/Adverse Reactions: Allergies Penicillins Allergy (Verified 01/16/16 11:27) Hives Certification: Further, I certify that my clinical findings support that this patient is homebound (i.e. absences from home require considerable and taxing effort and are for medical reasons or orthodox services or infrequently or short duration when for other reasons) because: Homebound Reason: Severity of cardiac or pulmonary status limits activity tolerance Attestation: My signature below is to certify that this patient is under my care and that I, or nurse practitioner, or a physician's assistant casino shift manager working with me, has a face-to -face encounter with this patient. <Jose Antonio Ruff - Last Filed: 11/11/16 14:01> - Respiratory Orders Smoking Cessation: Smoking cessation has been advised. For more information, call the [place] Quit Line at 1-742-YAVZ-NOW. Certification: Further, I certify that my clinical findings support that this patient is homebound (i.e. absences from home require considerable and taxing effort and are for medical reasons or orthodox services or infrequently or short duration when for other reasons) because: Attestation: My signature below is to certify that this patient is under my care and that I, or nurse practitioner, or a physician's assistant casino shift manager working with me, has a face-to -face encounter with this patient.
== END 2016-11-11 13:59 | disposition home health service (06) | DRG 291 ==
LOC: EMEROO 15:09 → SUATTDRO 18:48 → 2NENU 18:48
PROVIDERS: ADMIT Internal Medicine; ATTEND Internal Medicine

== ENCOUNTER 2016-11-21 13:16 | Inpatient (IN) ==
--- NOTE | 2016-11-21 13:22 | Emergency Department Note ---
Disposition Clinical Impression: Renal failure, Atrial fibrillation, Bradycardia, Hypotension, Anemia, Elevated troponin, Drug toxicity, LBBB (left bundle branch block), CHF (congestive heart failure) Disposition: Admitted As Inpatient Referrals: Nicanor Araujo Jr, MD [Primary Care Provider] - Forms: ED Satisfaction Letter General Adult HPI - General Chief complaint: ED Arrhythmia/Palpitations Stated complaint: low HR from pcp Time Seen by Provider: 11/21/16 13:22 Source: patient, family - History of Present Illness HPI Narrative: 81-year-old male reports emergency department complaining of general weakness which started this morning. He has a known history of atrial fibrillation. He is on Cardizem and a beta chela. The patient denies any strokelike symptoms. There is no history of unilateral arm or leg weakness or numbness. No confusion or slurred speech or difficulty with mentation. The patient denies any chest pain, he was recently in the hospital for pneumonia. There is no history of persistent fever or cough. No abdominal pain vomiting or diarrhea no syncope. There is no history of fever. There is no history of acute back pain. No history of bleeding. Triage note is the patient's heart rate was low and his blood pressure was low. The patient has been generally weak, his corroborates his story. No other complaints or concerns. - Related Data Home Medications Medication Instructions Recorded Confirmed Alprazolam [Xanax 0.5 MG Tablet] 0.5 mg PO TID PRN 01/16/16 11/21/16 Glimepiride [Amaryl] 4 mg PO QAM 01/16/16 11/21/16 Sitagliptin Phosphate [Januvia] 50 mg PO DAILY #0 01/16/16 11/21/16 Doxycycline Hyclate [Morgidox] 100 mg PO BID 11/21/16 11/21/16 Folic Acid 1 mg PO DAILY 11/21/16 11/21/16 Furosemide [Lasix] 40 mg PO DAILY 11/21/16 11/21/16 Guaifenesin [Mucinex] 600 mg PO BID 11/21/16 11/21/16 Metoprolol [Lopressor] 25 mg PO BID 11/21/16 11/21/16 Previous Rx's Medication Instructions Recorded Amlodipine [Norvasc] 5 mg PO DAILY #30 tablet 01/17/16 Aspirin 81 mg PO DAILY #30 tab.chew 11/11/16 Diltiazem CD (24hr) [Cardizem CD] 360 mg PO DAILY #60 cap.er.24h 11/11/16 Allergies Allergy/AdvReac Type Severity Reaction Status Date / Time Penicillins Allergy Hives Verified 01/16/16 11:27 All systems ED: reviewed and negative except as stated. Past Medical History - Past Medical History Medical history: Reports: CHF, diabetes, hypertension, renal disease, other Surgical history: Reports: appendectomy, cataract, cholecystectomy, knee replacement Psychiatric history: Reports: anxiety - Social History Smoking Status: Former smoker Smokeless Tobacco Status: Yes Alcohol use: Reports: none Drug use: Reports: none Physical Exam - General Limitations: no limitations General appearance: alert, in no apparent distress - Eye Eye exam: Present: normal appearance, PERRL, EOMI - ENT ENT exam: normal exam, normal oropharynx, mucous membranes moist, normal external ear exam - Neck Neck exam: Present: normal inspection, full ROM, trachea midline - Chest Chest inspection: Present: symmetric chest wall rise. Absent: tenderness - Respiratory Respiratory exam: Present: normal lung sounds bilaterally. Absent: respiratory distress - Cardiovascular Cardiovascular exam: Present: bradycardia, irregular rhythm - Abdominal Exam Abdominal exam: Present: soft, Non-Tender. Absent: tenderness, distention, guarding, rebound, rigidity, pulsatile mass - Extremities Exam Extremities exam: Present: normal inspection, full ROM, normal capillary refill. Absent: tenderness, pedal edema, joint swelling, calf tenderness - Expanded Lower Extremity Exam Lower leg exam: Absent: Homans' sign Neurovascular/Tendon exam: Absent: motor deficit, sensory deficit, tendon deficit - Back Exam Back exam: Present: normal inspection, full ROM. Absent: tenderness, CVA tenderness (R), CVA tenderness (L) - Neurological Exam Neurological exam: Present: alert, oriented X3, CN II-XII intact. Absent: motor sensory deficit - Psychiatric Psychiatric exam: Present: normal affect, normal mood - Skin Skin exam: Present: warm, dry, intact, normal color. Absent: rash, cyanosis, diaphoresis, erythema, pallor, mottled Course Vital Signs Temperature 97.2 F L 11/21/16 13:20 Pulse Rate 33 11/21/16 13:20 Respiratory Rate 11 11/21/16 13:20 Blood Pressure 94/51 11/21/16 13:20 O2 Sat by Pulse Oximetry 93 L 11/21/16 13:20 Temperature 97.2 F L 11/21/16 13:20 Pulse Rate 59 11/21/16 14:26 Respiratory Rate 12 11/21/16 14:26 Blood Pressure 163/78 11/21/16 14:26 O2 Sat by Pulse Oximetry 95 11/21/16 14:26 Oxygen Delivery Oxygen Delivery Nasal Cannula Medical Decision Making - MDM Narrative Medical decision making narrative: The patient was monitored here in the emergency department. IV access was established, an initial atropine was given, 2 separate doses, his heart rate did not appreciably elevate. IV fluid was given, glucagon, calcium, and an epinephrine drip were initiated. Transient cutaneous pacemakers were placed The patient appears to be bradycardic secondary to calcium channel chela and/ or beta chela effect. He does have a prolonged QT QTC and what appears to be a new left bundle branch block. The patient is not experiencing chest pain. He did respond to the medications and his heart rate came up into the 60s his blood pressure also went up into the over 100 systolic range. I discussed the case with the hospitalist on-call Dr. Martin, he recommended speaking with the ICU attending, I consulted with the hand laminator who will accept the patient to their care in the ICU. He asked that I call the cardiology service, I spoke with Dr. Guzman who is aware of the patient's condition and will act as specification consultant in the ICU. The patient is currently stable. He did improve with medications, high-dose insulin protocol was not initiated. The patient was given aspirin. I do not appreciate ST elevations or changes which would be positive for Scarbosa's criteria. The patient denies any chest pain, he does have significant EKG changes which I think are more likely to be attributable to the medication particularly calcium channel blockers and/or beta blockers versus acute myocardial infarction. The patient is currently stable pending admission. - Lab Data Lab results reviewed: Yes I reviewed the patient's lab results. Result diagrams: 11/21/16 14:15 11/21/16 14:15 Lab Results 11/21/16 11/21/16 11/21/16 Range/Units 14:15 14:15 14:15 WBC 15.3 H (4.3-11.1) K/mcL RBC 2.96 L (4.19-5.50) M/mcL Hgb 8.7 L (12.9-16.9) g/dL Hct 27.4 L (37.5-50.1) % MCV 92.6 (83.0-100.0) fL MCH 29.4 (28.0-33.3) pg MCHC 31.8 (31.6-35.5) g/dL RDW 13.4 (11.5-14.5) % Plt Count 216 (140-400) K/mcL MPV 10.8 (9.4-12.4) fL Immature Gran % 2.2 (0-4) % Seg Neutrophils % 74.2 % Lymphocytes % 14.3 % Monocytes % 8.3 % Eosinophils % 0.7 % Basophils % 0.3 % Neutrophils # 11.3 H (1.6-8.9) K/mcL Lymphocytes # 2.2 (0.6-4.6) K/mcL Monocytes # 1.3 (0.0-1.3) K/mcL Eosinophils # 0.1 (0.0-0.6) K/mcL Basophils # 0.1 (0.0-0.2) K/mcL PT 10.6 (9.4-12.1) Seconds INR 1.0 APTT 27.5 (26.0-36.0) Seconds Sodium 136 (136-145) mEq/L Potassium 5.4 H (3.5-4.5) mEq/L Chloride 110 H (98-109) mEq/L Carbon Dioxide 17 L (19-29) mEq/L BUN 47 H (8-26) mg/dL Creatinine 1.60 H (0.72-1.25) mg/dL Est GFR ( Amer) 51 L (> 60) Est GFR (Non-Af Amer) 42 L (> 60) BUN/Creatinine Ratio 29 H (6-26) Glucose 245 H (70-99) mg/dL Calculated Osmolality 302 H (280-300) Lactic Acid (0.5-2.2) mmol/L Calcium 8.5 L (8.6-10.8) mg/dL Magnesium 1.7 (1.6-2.6) mg/dL Total Bilirubin (0.2-1.2) mg/dL Direct Bilirubin (0.0-0.5) mg/dL Indirect Bilirubin (0.0-1.2) mg/dL AST (5-34) Units/L ALT (0-55) Units/L Alkaline Phosphatase (38-126) Units/L Troponin I (0-0.03) ng/mL C-Reactive Protein (Less than 5) mg/L Serum Total Protein (6.0-8.3) g/dL Albumin (3.5-5.0) g/dL Globulin (2.4-3.5) g/dL Albumin/Globulin Ratio (1.1-2.2) TSH 1.068 (0.350-4.840) mcIU/mL 11/21/16 11/21/16 11/21/16 Range/Units 14:15 14:15 14:15 WBC (4.3-11.1) K/mcL RBC (4.19-5.50) M/mcL Hgb (12.9-16.9) g/dL Hct (37.5-50.1) % MCV (83.0-100.0) fL MCH (28.0-33.3) pg MCHC (31.6-35.5) g/dL RDW (11.5-14.5) % Plt Count (140-400) K/mcL MPV (9.4-12.4) fL Immature Gran % (0-4) % Seg Neutrophils % % Lymphocytes % % Monocytes % % Eosinophils % % Basophils % % Neutrophils # (1.6-8.9) K/mcL Lymphocytes # (0.6-4.6) K/mcL Monocytes # (0.0-1.3) K/mcL Eosinophils # (0.0-0.6) K/mcL Basophils # (0.0-0.2) K/mcL PT (9.4-12.1) Seconds INR APTT (26.0-36.0) Seconds Sodium (136-145) mEq/L Potassium (3.5-4.5) mEq/L Chloride (98-109) mEq/L Carbon Dioxide (19-29) mEq/L BUN (8-26) mg/dL Creatinine (0.72-1.25) mg/dL Est GFR ( Amer) (> 60) Est GFR (Non-Af Amer) (> 60) BUN/Creatinine Ratio (6-26) Glucose (70-99) mg/dL Calculated Osmolality (280-300) Lactic Acid 1.8 (0.5-2.2) mmol/L Calcium (8.6-10.8) mg/dL Magnesium (1.6-2.6) mg/dL Total Bilirubin 0.9 (0.2-1.2) mg/dL Direct Bilirubin 0.3 (0.0-0.5) mg/dL Indirect Bilirubin 0.6 (0.0-1.2) mg/dL AST 19 (5-34) Units/L ALT 18 (0-55) Units/L Alkaline Phosphatase 106 (38-126) Units/L Troponin I 0.04 H* (0-0.03) ng/mL C-Reactive Protein (Less than 5) mg/L Serum Total Protein 6.0 (6.0-8.3) g/dL Albumin 3.0 L (3.5-5.0) g/dL Globulin 3.0 (2.4-3.5) g/dL Albumin/Globulin Ratio 1.0 L (1.1-2.2) TSH (0.350-4.840) mcIU/mL 11/21/16 Range/Units 14:15 WBC (4.3-11.1) K/mcL RBC (4.19-5.50) M/mcL Hgb (12.9-16.9) g/dL Hct (37.5-50.1) % MCV (83.0-100.0) fL MCH (28.0-33.3) pg MCHC (31.6-35.5) g/dL RDW (11.5-14.5) % Plt Count (140-400) K/mcL MPV (9.4-12.4) fL Immature Gran % (0-4) % Seg Neutrophils % % Lymphocytes % % Monocytes % % Eosinophils % % Basophils % % Neutrophils # (1.6-8.9) K/mcL Lymphocytes # (0.6-4.6) K/mcL Monocytes # (0.0-1.3) K/mcL Eosinophils # (0.0-0.6) K/mcL Basophils # (0.0-0.2) K/mcL PT (9.4-12.1) Seconds INR APTT (26.0-36.0) Seconds Sodium (136-145) mEq/L Potassium (3.5-4.5) mEq/L Chloride (98-109) mEq/L Carbon Dioxide (19-29) mEq/L BUN (8-26) mg/dL Creatinine (0.72-1.25) mg/dL Est GFR ( Amer) (> 60) Est GFR (Non-Af Amer) (> 60) BUN/Creatinine Ratio (6-26) Glucose (70-99) mg/dL Calculated Osmolality (280-300) Lactic Acid (0.5-2.2) mmol/L Calcium (8.6-10.8) mg/dL Magnesium (1.6-2.6) mg/dL Total Bilirubin (0.2-1.2) mg/dL Direct Bilirubin (0.0-0.5) mg/dL Indirect Bilirubin (0.0-1.2) mg/dL AST (5-34) Units/L ALT (0-55) Units/L Alkaline Phosphatase (38-126) Units/L Troponin I (0-0.03) ng/mL C-Reactive Protein 13 H (Less than 5) mg/L Serum Total Protein (6.0-8.3) g/dL Albumin (3.5-5.0) g/dL Globulin (2.4-3.5) g/dL Albumin/Globulin Ratio (1.1-2.2) TSH (0.350-4.840) mcIU/mL - Radiology Data Radiology results reviewed: Yes I reviewed the patient's radiology results.
[2016-11-21] MEDS ORDERED: *HR* Atropine Sulfate 1 MG/10 ML SYRINGE IVP ONE ×2 (13:28→13:37)
[2016-11-21] MEDS ORDERED: 0.9 % Sodium Chloride 1,000 ML ONE (13:29)
[2016-11-21] MEDS ORDERED: 0.9 % Sodium Chloride 1,000 ML IVC ONE (13:29)
[2016-11-21] MEDS ORDERED: *HR* Atropine Sulfate 1 MG/10 ML SYRINGE ONE (13:29)
[2016-11-21] MEDS ORDERED: Calcium Gluconate 1,000 MG in D5% in Water 100 ML IVPB ONE (13:41)
[2016-11-21] MEDS ORDERED: Calcium Gluconate 3,000 MG in D5% in Water 250 ML IVPB ONE (13:53)
[2016-11-21] MEDS: EPINEPHrine 1 MG in D5% in Water 250 ML IVC SCH (14:03)
[2016-11-21 14:21] LABS: Basophils # 0.1 K/mcL (0.0-0.2); Basophils % 0.3 %; Eosinophils # 0.1 K/mcL (0.0-0.6); Eosinophils % 0.7 %; Hematocrit 27.4 % (37.5-50.1); Hemoglobin 8.7 g/dL (12.9-16.9); Immature Granulocytes % 2.2 % (0-4); Lymphocytes # 2.2 K/mcL (0.6-4.6); Lymphocytes % 14.3 %; Mean Corpuscular HGB Conc 31.8 g/dL (31.6-35.5); Mean Corpuscular Hemoglobin 29.4 pg (28.0-33.3); Mean Corpuscular Volume 92.6 fL (83.0-100.0); Mean Platelet Volume 10.8 fL (9.4-12.4); Monocytes # 1.3 K/mcL (0.0-1.3); Monocytes % 8.3 %; Neutrophils # 11.3 K/mcL (1.6-8.9); Platelet Count 216 K/mcL (140-400); Red Blood Count 2.96 M/mcL (4.19-5.50); Red Cell Distribution Width 13.4 % (11.5-14.5); Segmented Neutrophils % 74.2 %
[2016-11-21 14:29] LABS: Prothrombin Time 10.6 Seconds (9.4-12.1)
[2016-11-21 14:31] LABS: Activated Partial Thrombo Time 27.5 Seconds (26.0-36.0)
[2016-11-21 14:34] LABS: Calcium 8.5 mg/dL (8.6-10.8); Magnesium 1.7 mg/dL (1.6-2.6); Potassium 5.4 mEq/L (3.5-4.5)
[2016-11-21 14:37] LABS: Bilirubin,Direct 0.3 mg/dL (0.0-0.5); Bilirubin,Indirect 0.6 mg/dL (0.0-1.2); Bilirubin,Total 0.9 mg/dL (0.2-1.2)
[2016-11-21 14:56] LABS: Thyroid Stimulating Hormone 1.068 mcIU/mL (0.350-4.840)
[2016-11-21] MEDS: Aspirin 325 MG TABLET PO ONE (14:56)
[2016-11-21] MEDS ORDERED: Naloxone 0.4 MG/ML INJ IVP PRN (15:56)
[2016-11-21] MEDS ORDERED: FAT EMULSIONS IVPB ONE (16:15)
--- NOTE | 2016-11-21 16:42 | Pulmonology History & Physical ---
Date of Encounter: 11/22/16 Time of Encounter: 16:41 Assessment and Plan (1) Bradycardia Current visit: Yes Status: Acute Patient was admitted to the ICU for symptomatic bradycardia. Heart rate was reported to be in the 30s. This is likely due to a drug reaction/overdose of diltiazem CD which is a long-acting 24-hour calcium channel chela/ antiarrhythmic that was recently increased in conjunction with his beta chela metoprolol. Initially in the ED: Patient was treated for bradycardia with atropine to which he did not respond and a drip of epinephrine was initiated. Causes of bradycardia addressed were beta chela OD and calcium channel chela OD and were treated with glucagon and calcium gluconate respectively. Patient arrived to ICU and was titrated off epinephrine drip he remained hemodynamically stable heart rate between 60 and 80. If patient develops recurrent/refractory bradycardia: Will initiate dopamine drip for dose response. Lipid emulsion will also be initiated if patient becomes symptomatic. Continuous cardiac monitoring. Patient does have a known history of atrial fibrillation and left bundle branch block. Consult placed to cardiology for further consideration of pacemaker. Case was discussed with Dr. Guzman. (2) Atrial fibrillation Current visit: Yes Status: Acute Patient has a history of atrial fibrillation that was previously rate controlled by long-acting diltiazem and metoprolol regimen. Please see above for bradycardia. We will hold negative chronotropic agents at this time. Qualifiers: Atrial fibrillation type: unspecified Qualified Code(s): I48.91 - Unspecified atrial fibrillation (3) CHF (congestive heart failure) Current visit: Yes Status: Acute Patient does have a history of congestive heart failure and was previously on Lasix however he was taken off due to a decline in renal function. Most recent echo shows preserved ejection fraction with mild diastolic dysfunction. Patient was recently treated for pneumonia on 11/08/16; today on chest x-ray there were persistent bilateral perihilar infiltrates with some improvement of the left lung infiltrate. Will repeat chest x-ray in the morning to monitor for further resolution. Patient is afebrile and without cough, congestion, chest pain or concerning symptoms for pneumonia. Findings likely related to CHF. BNP 756. We will continue to follow daily labs. Monitor I and O's volume/fluid balance. Qualifiers: Congestive heart failure type: diastolic Congestive heart failure chronicity: acute on chronic Qualified Code(s): I50.33 - Acute on chronic diastolic (congestive) heart failure (4) Drug toxicity Current visit: Yes Status: Acute Symptomatic bradycardia likely due in part to overdose of calcium channel chela and beta chela, in addition to underlying structural and functional deficits of the heart. Specific treatment addressed above under bradycardia. (5) Elevated troponin Current visit: Yes Status: Acute Patient does have an elevated troponin of 0.04 however this is decreased from his previous troponin on 11/09/16 which was 0.41. Elevated troponin likely due to multiple factors including CHF and stress with recent pneumonia, increased work/strain of the heart demand ischemia. Patient denies any chest pain. Last echo did not demonstrate any wall motion abnormalities and ejection fraction was preserved. (6) DVT prophylaxis Current visit: No Status: Acute Mechanical at this time please see below anemia as patient has a recent history of melanotic stools and bleeding. EPCDs (7) Diabetes Current visit: Yes Status: Acute Patient is a type II diabetic controlled with oral medication at home. Blood sugar on arrival was in the 300s. Accu-Cheks every 6 hours and adjust with insulin accordingly. Diabetic diet for tonight then nothing by mouth after midnight if pacemaker to be placed. Chronic kidney disease stage IIIB is unchanged. We will continue to monitor labs BUN/creatinine/GFR. 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 Araujo with anemia and melanotic stools anticoagulation has been held since that time. In addition patient was planning to have knee surgery in November which was postponed due to after mentioned bleeding. We will continue to monitor patient's hemoglobin and hematocrit daily to monitor his anemia. Further workup will be necessary to determine the underlying etiology of anemia such as source of bleed upper or lower GI. Other potential causes of anemia include hemolytic/drug therapy/iron deficiency/ chronic disease. We will consult GI. Qualifiers: Anemia type: unspecified type Qualified Code(s): D64.9 - Anemia, unspecified History of Present Illness Chief complaint: Slow heartbeat HPI: Mr. Bowser is a 81 year old male with a past medical history of type 2 diabetes , chronic kidney disease stage IIIB, hypertension, congestive heart failure, anemia who was admitted to the ICU for hypotension. Patient reports that this morning he woke up and just did not "feel right". Patient states that he felt sick to his stomach and reported generalized weakness. His took his blood pressure at home and it was reported to be low 80s to 90s/50s to 60s with a heart rate in the 30s to 40s. Patient's then brought into the emergency department concerned for his bradycardia. Patient has a known history of atrial fibrillation taking diltiazem CD which was recently increased and metoprolol. However, patient was seen by his primary care physician Dr. Araujo on 11/01/16 he was taken off his long-term anticoagulation due to melena stools and anemia. He developed pneumonia shortly after this visit and was admitted to [facility] 11/08/16 for treatment. He denies any cough or chest pain, back pain, fever or residual symptoms. Initially in the ED: Patient was treated for bradycardia with atropine to which he did not respond and a drip of epinephrine was initiated. Causes of bradycardia addressed were beta chela OD and calcium channel chela OD and were treated with glucagon and calcium gluconate respectively. Patient arrived to ICU and was titrated off epinephrine drip he remained hemodynamically stable heart rate between 60 and 80. Past Med Surg Social Fam HX - Past Medical History Medical history: CHF, diabetes, hypertension, renal disease, other Psychiatric history: anxiety - Past Surgical History Surgical History: appendectomy, cataract, cholecystectomy, knee replacement - Social History Smoking Status: Former smoker Smokeless Tobacco Status: Yes Alcohol use: none Drug use: none - Family History Mother Living Status: Father Living Status: Medications and Allergies Alprazolam [Xanax 0.5 MG Tablet] 0.5 mg PO TID PRN 01/16/16 [History] Glimepiride [Amaryl] 4 mg PO QAM 01/16/16 [History] Sitagliptin Phosphate [Januvia] 50 mg PO DAILY #0 01/16/16 [History] Amlodipine [Norvasc] 5 mg PO DAILY #30 tablet 01/17/16 [Rx] Aspirin 81 mg PO DAILY #30 tab.chew 11/11/16 [Rx] Diltiazem CD (24hr) [Cardizem CD] 360 mg PO DAILY #60 cap.er.24h 11/11/16 [Rx] Doxycycline Hyclate [Morgidox] 100 mg PO BID 11/21/16 [History] Folic Acid 1 mg PO DAILY 11/21/16 [History] Furosemide [Lasix] 40 mg PO DAILY 11/21/16 [History] Guaifenesin [Mucinex] 600 mg PO BID 11/21/16 [History] Metoprolol [Lopressor] 25 mg PO BID 11/21/16 [History] Allergies Penicillins Allergy (Verified 01/16/16 11:27) Hives All Systems: A 10-system review of systems was performed and is negative for pertinent findings except as documented above in the HPI. - Constitutional Constitutional: fatigue, no anorexia, no chills, no fever(s) - EENT Eyes: no loss of peripheral vision, no loss of vision, no photophobia Ears: decreased hearing Physical Examination Vital Signs: Vital Signs, Last 4 Hours Resp BP 11/21/16 15:50 11 173/83 Results - Laboratory Findings CBC and BMP: 11/22/16 03:53 11/22/16 03:53 PT/INR, D-dimer PT 10.6 Seconds (9.4-12.1) 11/21/16 14:15 Abnormal lab findings: Abnormal lab results WBC 15.3 K/mcL (4.3-11.1) H 11/21/16 14:15 RBC 2.96 M/mcL (4.19-5.50) L 11/21/16 14:15 Hgb 8.7 g/dL (12.9-16.9) L 11/21/16 14:15 Hct 27.4 % (37.5-50.1) L 11/21/16 14:15 Neutrophils # 11.3 K/mcL (1.6-8.9) H 11/21/16 14:15 Potassium 5.4 mEq/L (3.5-4.5) H 11/21/16 14:15 Chloride 110 mEq/L (98-109) H 11/21/16 14:15 Carbon Dioxide 17 mEq/L (19-29) L 11/21/16 14:15 BUN 47 mg/dL (8-26) H 11/21/16 14:15 Creatinine 1.60 mg/dL (0.72-1.25) H 11/21/16 14:15 Est GFR ( Amer) 51 (> 60) L 11/21/16 14:15 Est GFR (Non-Af Amer) 42 (> 60) L 11/21/16 14:15 BUN/Creatinine Ratio 29 (6-26) H 11/21/16 14:15 Glucose 245 mg/dL (70-99) H 11/21/16 14:15 POC Glucose 336 (58-89) H 11/21/16 16:12 Calculated Osmolality 302 (280-300) H 11/21/16 14:15 Calcium 8.5 mg/dL (8.6-10.8) L 11/21/16 14:15 Troponin I 0.04 ng/mL (0-0.03) H* 11/21/16 14:15 C-Reactive Protein 13 mg/L (Less than 5) H 11/21/16 14:15 B-Natriuretic Peptide 756 pg/mL (0-100) H 11/21/16 14:15 Albumin 3.0 g/dL (3.5-5.0) L 11/21/16 14:15 Albumin/Globulin Ratio 1.0 (1.1-2.2) L 11/21/16 14:15 - Diagnostic Findings Chest x-ray: report reviewed Additional studies: Chest X-Ray 11/21/16 13:23 IMPRESSION: Persistent bilateral perihilar infiltrates, although the left lower lobe infiltrate demonstrates improvement. Cardiomegaly and congestion also noted. D/ / 11/21/2016 14:46:02 Clemencia Black MD / earnold Interpreting Provider: Clemencia Black MD
--- NOTE | 2016-11-21 16:43 | Event Note ---
Date of Encounter: 11/21/16 Time of Encounter: 16:42 Attending Attestation to Resident Note: The patient was seen and examined with the house staff. Care was discussed on multidisciplinary rounds. Full resident note is pending. This will serve as my addendum to the resident note. 1. Bradycardia 2. Hypotension 3. Atrial fibrillation 81-year-old white male with medical history significant for atrial fibrillation with recent up titration of his rate control regimen (long-acting diltiazem and metoprolol). The patient presented to the emergency department with symptomatic bradycardia. His heart rate was as low as the 30s. He did not respond to atropine. He was given glucagon and calcium gluconate. He was initially started on an epinephrine drip, but this has been titrated off. Plan: Currently off all beta agonist therapy, but if he develops recurrent bradycardia we will initiate dopamine infusion We have ordered a bolus of lipid emulsion therapy, which we can also trial if he develops refractory bradycardia Cardiology has been consulted, and I discussed the case with Dr. Guzman. The patient has an underlying left bundle branch block, and we will try to avoid temporary pacemaker. However, the patient will need EP evaluation and possible permanent pacemaker. Continue ICU level of care
[2016-11-21] MEDS ORDERED: *HR* Dextrose 50 % in Water (Syg) 50 ML SYRINGE IVP PRN (16:45)
[2016-11-21] MEDS ORDERED: D5% in Water 1,000 ML IV PRN (16:45)
[2016-11-21] MEDS ORDERED: Dextrose Gel 15 GM PO PRN ×2 (16:45)
--- NOTE | 2016-11-21 16:56 | Cardiology Consult Note ---
Date of Encounter: 11/21/16 Time of Encounter: 16:52 Assessment and Plan (1) Tachy-huong syndrome Current Visit: Yes Status: Acute Mr. Bowser is a 81-year-old with atrial fibrillation, baseline left bundle branch block. Recently treated for AF with RVR. Returns today with evidence of AF with slow ventricular response, reported heart rate in the 30s. 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 Currently, hemodynamics are stable. He is not requiring any supportive medications. Heart rate at the bedside 60s to 80. Recommend holding negative chronotropic agents. Maintain telemetry. No immediate clinical need for intervention at this time. We discussed tachybrady syndrome and its management. We discussed the risks, benefits, and alternatives to a permanent pacemaker. He is considering. (2) Atrial fibrillation Current Visit: Yes Status: Acute Qualifiers: Atrial fibrillation type: unspecified Qualified Code(s): I48.91 - Unspecified atrial fibrillation (3) LBBB (left bundle branch block) Current Visit: Yes Status: Chronic Discussion w patient/family: The assessment and plan as outlined above was discussed with the patient and/or family members who expressed understanding and agreement. All questions were answered. Thank you for involving us in the care of your patient. Please call with any questions. History of Present Illness Consult date: 11/21/16 Requesting physician: Charlie Bahena Consult reason: AF, bradycardia Chief complaint: Fatigue History of present illness: Mr. Bowser is a 81 year old male with a history of a left bundle branch block and atrial fibrillation. Comorbidities include diabetes, essential HTN, and CKD. Patient recently discharged on 11/12/2016 after being treated for AF with RVR. Cardizem was increased to 360 mg daily. Patient was started on Toprol 25 mg twice daily. Coumadin previously attempted, but discontinued secondary to anemia. Patient presented to the hospital today with complaints of fatigue. Patient noted to be bradycardic, heart rate in the 30s. He was given atropine and placed on epinephrine drip. Although he described fatigue, no syncope or near-syncope was described. I saw the patient in the ICU. Patient no longer on epinephrine. Heart rate currently between 60 and 80. Blood pressure appears to be stable. He is coherent without any acute complaints. Past Med Surg Social Fam HX - Past Medical History Medical history: CHF, diabetes, hypertension, renal disease, other Psychiatric history: anxiety - Past Surgical History Surgical History: appendectomy, cataract, cholecystectomy, knee replacement - Social History Smoking Status: Former smoker Smokeless Tobacco Status: Yes Alcohol use: none Drug use: none - Family History Mother Living Status: Father Living Status: Medications and Allergies Alprazolam [Xanax 0.5 MG Tablet] 0.5 mg PO TID PRN 01/16/16 [History] Glimepiride [Amaryl] 4 mg PO QAM 01/16/16 [History] Sitagliptin Phosphate [Januvia] 50 mg PO DAILY #0 01/16/16 [History] Amlodipine [Norvasc] 5 mg PO DAILY #30 tablet 01/17/16 [Rx] Aspirin 81 mg PO DAILY #30 tab.chew 11/11/16 [Rx] Diltiazem CD (24hr) [Cardizem CD] 360 mg PO DAILY #60 cap.er.24h 11/11/16 [Rx] Doxycycline Hyclate [Morgidox] 100 mg PO BID 11/21/16 [History] Folic Acid 1 mg PO DAILY 11/21/16 [History] Furosemide [Lasix] 40 mg PO DAILY 11/21/16 [History] Guaifenesin [Mucinex] 600 mg PO BID 11/21/16 [History] Metoprolol [Lopressor] 25 mg PO BID 11/21/16 [History] Allergies Penicillins Allergy (Verified 01/16/16 11:27) Hives All Systems Review: A 10-system review of systems was performed and is negative for pertinent findings except as documented above in the HPI. - Constitutional Constitutional: weakness - Cardiovascular Cardiovascular: as per HPI, slow heart rate Physical Examination Vital Signs, Last 4 Hours Temp Pulse Resp BP Pulse Ox 11/21/16 16:29 97.9 F 86 16 144/78 93 L 11/21/16 15:50 11 173/83 General: Conversant, No Apparent Distress HEENT: Atraumatic, Normocephaly, Mucus Membranes Moist Neck: No JVD, Normal carotid pulses Cardiac: Other (Irregular rate and rhythm. No significant murmurs appreciated.) Lungs: Normal Breath Sounds, No Wheeze, Rales, Rhonchi Neuro: Alert and responsive, No focal deficits noted Abdomen: Soft, Non-Tender Skin: No rashes noted on visualized skin Musculoskeletal: No Chest Wall Tenderness Extremities: No Clubbing, No Cyanosis, No Edema Results 11/21/16 14:15 11/21/16 14:15 - Imaging and Cardiology Stress Test: report reviewed Echo: report reviewed Consult Discharge Plan - Plan Referrals: Nicanor Araujo Jr, MD [Primary Care Provider] -
[2016-11-21] MEDS: Insulin LISPRO 300 UNITS/3 ML VIAL SQ SCH ×2 (18:11→23:49)
[2016-11-22 04:28] LABS: Basophils % 0.3 %; Eosinophils # 0.1 K/mcL (0.0-0.6); Eosinophils % 0.8 %; Hematocrit 29.1 % (37.5-50.1); Hemoglobin 9.2 g/dL (12.9-16.9); Immature Granulocytes % 1.7 % (0-4); Lymphocytes # 1.9 K/mcL (0.6-4.6); Lymphocytes % 17.8 %; Mean Corpuscular HGB Conc 31.6 g/dL (31.6-35.5); Mean Corpuscular Hemoglobin 28.9 pg (28.0-33.3); Mean Corpuscular Volume 91.5 fL (83.0-100.0); Mean Platelet Volume 10.1 fL (9.4-12.4); Monocytes # 0.9 K/mcL (0.0-1.3); Monocytes % 8.3 %; Neutrophils # 7.6 K/mcL (1.6-8.9); Platelet Count 275 K/mcL (140-400); Red Blood Count 3.18 M/mcL (4.19-5.50); Red Cell Distribution Width 13.3 % (11.5-14.5); Segmented Neutrophils % 71.1 %
[2016-11-22 04:33] LABS: Prothrombin Time 10.5 Seconds (9.4-12.1)
[2016-11-22 04:34] LABS: ABG Base Excess -5.2 mEq/L (-2.0 to 3.0); ABG HCO3 19.9 mEQ/L (21-27); ABG Oxygen Saturation 91 % (95-98); ABG PCO2 36 mmHg (35-45); ABG PH 7.35 pH Units (7.32-7.45); ABG PO2 64 mmHg (85-104)
[2016-11-22 04:35] LABS: Blood Gas FiO2 28 %
[2016-11-22 04:50] LABS: Albumin 3.1 g/dL (3.5-5.0); Albumin/Globulin Ratio 0.9 (1.1-2.2); Bilirubin,Total 0.7 mg/dL (0.2-1.2); Calcium 9.3 mg/dL (8.6-10.8); Globulin 3.4 g/dL (2.4-3.5); Magnesium 1.7 mg/dL (1.6-2.6); Potassium 4.7 mEq/L (3.5-4.5); Total Protein 6.5 g/dL (6.0-8.3)
[2016-11-22] MEDS: Insulin LISPRO 300 UNITS/3 ML VIAL SQ SCH ×3 (05:44→17:46)
[2016-11-22] MEDS ORDERED: Pantoprazole 40 MG VIAL IVPB SCH (09:00)
[2016-11-22] MEDS: ALPRAZolam 0.5 MG TABLET PO PRN ×3 (09:50→22:12)
--- NOTE | 2016-11-22 09:50 | Cardiology Progress Note ---
Date of Encounter: 11/22/16 Time of Encounter: 09:48 Assessment and Plan (1) Tachy-huong syndrome Current Visit: Yes Status: Acute - Hemodynamics stable overnight, no further pressor requirement - Is starting to get tacycardic again while off medications, HR 90-120 - Continue to hold home negative chronotropic meds - PRN Lopressor - Continue continuos cardiac monitoring - No acute intervention at this time - Planned PPM placement tomorrow, patient agreeable, will need consent - NPO at midnight, may eat today - Further management pending attending recommendations (2) Atrial fibrillation Current Visit: Yes Status: Acute - see plan above as outlined for Tachy-huong syndrome Qualifiers: Atrial fibrillation type: unspecified Qualified Code(s): I48.91 - Unspecified atrial fibrillation (3) LBBB (left bundle branch block) Current Visit: Yes Status: Chronic - Not new - Avoid temporary pacemaker, unless necessary - Likely place PPM tomorrow 11/23 - See tachy-huong syndrome for further details Discussion w patient/family: The assessment and plan as outlined above was discussed with the patient and/or family members who expressed understanding and agreement. All questions were answered. Thank you for involving us in the care of your patient. Please call with any questions. Subjective Principal diagnosis: Tachy-huong syndrome Interval history: No acute events overnight, has remained off pressors. Has been tachycardic while off his medications. Denies any chest pain, shortness of breath, dizziness, or other concerns. Objective Vital Signs, Last 4 Hours Temp Pulse Resp BP Pulse Ox 11/22/16 08:08 97.7 F 11/22/16 08:00 123 16 128/86 97 11/22/16 07:00 120 20 125/69 95 11/22/16 06:00 80 16 98/56 96 General: Conversant, No Apparent Distress HEENT: Atraumatic, Normocephaly, Mucus Membranes Moist Neck: No JVD, Normal carotid pulses Cardiac: Normal S1 and S2, No Murmur, Other (A-fib, tachycardic ) Lungs: Normal Breath Sounds, No Wheeze, Rales, Rhonchi Neuro: Alert and responsive, No focal deficits noted Abdomen: Soft, Non-Tender Skin: No rashes noted on visualized skin Musculoskeletal: No Chest Wall Tenderness Extremities: No Clubbing, No Cyanosis, No Edema, Normal Pulses Results 11/22/16 03:53 11/22/16 03:53 Lab Results 11/22/16 11/22/16 11/22/16 03:53 03:53 03:53 WBC 10.7 Hgb 9.2 L Hct 29.1 L Plt Count 275 INR 1.0 Sodium 138 Potassium 4.7 H Chloride 111 H Carbon Dioxide 17 L BUN 46 H Creatinine 1.49 H Glucose 90 Calcium 9.3 Magnesium 1.7 Total Bilirubin 0.7 AST 24 ALT 22 Alkaline Phosphatase 118 - Imaging and Cardiology Chest Xray: image reviewed (stable, has h/o PNA 1 week ago, no clinical signs of PNA) - EKG Interpretation EKG results cardiology: left bundle branch block (old) Consult Discharge Plan - Plan Referrals: Nicanor Araujo Jr, MD [Primary Care Provider] -
--- NOTE | 2016-11-22 11:01 | Electrocardiograph Report ---
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
--- NOTE | 2016-11-22 11:09 | Electrocardiograph Report ---
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
--- NOTE | 2016-11-22 11:46 | Pulmonology Progress Note ---
Date of Encounter: 11/22/16 Time of Encounter: 07:00 Assessment and Plan (1) Bradycardia Current Visit: Yes Status: Acute Patient was admitted to the ICU for symptomatic bradycardia. Heart rate was reported to be in the 30s. This is likely due to a drug reaction/overdose of diltiazem CD which is a long-acting 24-hour calcium channel chela/ antiarrhythmic that was recently increased in conjunction with his beta chela metoprolol. Initially in the ED: Patient was treated for bradycardia with atropine to which he did not respond and a drip of epinephrine was initiated. Causes of bradycardia addressed were beta chela OD and calcium channel chela OD and were treated with glucagon and calcium gluconate respectively. Patient arrived to ICU and was titrated off epinephrine drip he remained hemodynamically stable heart rate between 60 and 80. Tachycardia: We will treat if symptomatic RVR greater than 140 with IV Lopressor 1 time dose. As patient has planned pacemaker tomorrow. Continuous cardiac monitoring. Patient does have a known history of atrial fibrillation and left bundle branch block. Consult placed to cardiology for further consideration of pacemaker. Pacemaker to be placed tomorrow. Patient nothing by mouth after midnight. (2) Atrial fibrillation Current Visit: Yes Status: Acute Patient has a history of atrial fibrillation that was previously rate controlled by long-acting diltiazem and metoprolol regimen. Please see above for bradycardia. We will hold negative chronotropic agents at this time. Qualifiers: Atrial fibrillation type: unspecified Qualified Code(s): I48.91 - Unspecified atrial fibrillation (3) CHF (congestive heart failure) Current Visit: Yes Status: Acute Patient does have a history of congestive heart failure and was previously on Lasix however he was taken off due to a decline in renal function. Most recent echo shows preserved ejection fraction with mild diastolic dysfunction. Patient was recently treated for pneumonia on 11/08/16. Chest x-ray: Demonstrates bilateral airspace disease without change from yesterday. Will repeat chest x-ray in the morning to monitor for further resolution. Patient is afebrile and without cough, congestion, chest pain or concerning symptoms for pneumonia. Findings likely related to CHF. We will continue to follow daily labs. Monitor I and O's volume/fluid balance. Qualifiers: Congestive heart failure type: diastolic Congestive heart failure chronicity: acute on chronic Qualified Code(s): I50.33 - Acute on chronic diastolic (congestive) heart failure (4) Drug toxicity Current Visit: Yes Status: Acute Symptomatic bradycardia likely due in part to overdose of calcium channel chela and beta chela, in addition to underlying structural and functional deficits of the heart. Specific treatment addressed above under bradycardia. Resolution of symptoms. (5) Elevated troponin Current Visit: Yes Status: Acute Patient does have an elevated troponin of 0.04 however this is decreased from his previous troponin on 11/09/16 which was 0.41. Elevated troponin likely due to multiple factors including CHF and stress with recent pneumonia, increased work/strain of the heart demand ischemia. Patient denies any chest pain. Last echo did not demonstrate any wall motion abnormalities and ejection fraction was preserved. (6) Diabetes Current Visit: Yes Status: Acute Patient is a type II diabetic controlled with oral medication at home. Blood sugar on arrival was in the 300s. Accu-Cheks every 6 hours and adjust with insulin accordingly. Diabetic diet for tonight then nothing by mouth after midnight if pacemaker to be placed. Chronic kidney disease stage IIIB is unchanged. We will continue to monitor labs BUN/creatinine/GFR. Qualifiers: Diabetes mellitus type: type 2 Diabetes mellitus complication status: with kidney complications Diabetes mellitus complication detail: with chronic kidney disease Diabetes mellitus buttermaker helper insulin use: without fdc use Chronic kidney disease stage: stage 3 (moderate) Qualified Code(s): E11.22 - Type 2 diabetes mellitus with diabetic chronic kidney disease; N18.3 - Chronic kidney disease, stage 3 (moderate) (7) Anemia Current Visit: Yes Status: Acute On 10/22/16 patient was seen by his primary care provider Dr. Araujo with anemia and melanotic stools anticoagulation has been held since that time. In addition patient was planning to have knee surgery in November which was postponed due to after mentioned bleeding. We will continue to monitor patient's hemoglobin and hematocrit daily to monitor his anemia. Further workup will be necessary to determine the underlying etiology of anemia such as source of bleed upper or lower GI. Other potential causes of anemia include hemolytic/drug therapy/iron deficiency/ chronic disease. Patient's and patient state that they would like to follow-up with their primary care doctor to make an appointment for the upper and lower endoscopy as they previously had it scheduled with him. They are not interested in investigating here at [place]. Qualifiers: Anemia type: unspecified type Qualified Code(s): D64.9 - Anemia, unspecified (8) DVT prophylaxis Current Visit: No Status: Acute Mechanical at this time please see below anemia as patient has a recent history of melanotic stools and bleeding. Patient is mobile and actively walking around the room. EPCDs at night Subjective Principal diagnosis: Tachy-huong syndrome Interval history: Patient states that he had a difficult time sleeping last night due to multiple interruptions for laboratory testing and imaging. Patient has no complaints. On exam patient was tachycardic in the 102-110 range, however pacemaker is planned for tomorrow and patient is asymptomatic at this time. Will intervene only if RVR 140 or greater. Patient appears to intervene appropriately in conversation when patient is confused or answers inappropriately. left and patient wandering around the room confused/delirious likely due to poor sleep. Will transfer patient to [facility] with a sitter as patient slipped and fell catching himself on the chair without incident. Objective PUL Vital signs: Last Vital Signs Temp 97.7 F 11/22/16 08:08 Pulse 118 11/22/16 10:00 Resp 14 11/22/16 10:00 BP 138/101 11/22/16 10:00 Pulse Ox 97 11/22/16 10:00 General appearance: no acute distress Eyes: nonicteric ENT: oropharynx moist Neck: supple, no lymphadenopathy, no JVD Effort: normal Cardiovascular: other (Tachycardia variable rate between 102-110 bpm) Gastrointestinal: normoactive bowel sounds, soft, non-tender, non-distended Integumentary: normal Extremities: no cyanosis, pulses normal, no ischemia or petechiae Musculoskeletal: ROM normal Gait: normal gait (Unsteady) non-focal exam, pupils equal and round, other (Delirium or possible baseline dementia) mood appropriate, affect normal Results - Laboratory Findings CBC and BMP: 11/22/16 03:53 11/22/16 03:53 ABG ABG pH 7.35 pH Units (7.32-7.45) 11/22/16 04:25 ABG pCO2 36 mmHg (35-45) 11/22/16 04:25 ABG pO2 64 mmHg (85-104) L 11/22/16 04:25 ABG O2 Saturation 91 % (95-98) L 11/22/16 04:25 PT/INR, D-dimer PT 10.5 Seconds (9.4-12.1) 11/22/16 03:53 Abnormal lab findings: Abnormal lab results RBC 3.18 M/mcL (4.19-5.50) L 11/22/16 03:53 Hgb 9.2 g/dL (12.9-16.9) L 11/22/16 03:53 Hct 29.1 % (37.5-50.1) L 11/22/16 03:53 ABG pO2 64 mmHg (85-104) L 11/22/16 04:25 ABG HCO3 19.9 mEQ/L (21-27) L 11/22/16 04:25 ABG O2 Saturation 91 % (95-98) L 11/22/16 04:25 ABG Base Excess -5.2 mEq/L (-2.0 to 3.0) L 11/22/16 04:25 Potassium 4.7 mEq/L (3.5-4.5) H 11/22/16 03:53 Chloride 111 mEq/L (98-109) H 11/22/16 03:53 Carbon Dioxide 17 mEq/L (19-29) L 11/22/16 03:53 BUN 46 mg/dL (8-26) H 11/22/16 03:53 Creatinine 1.49 mg/dL (0.72-1.25) H 11/22/16 03:53 Est GFR ( Amer) 55 (> 60) L 11/22/16 03:53 Est GFR (Non-Af Amer) 45 (> 60) L 11/22/16 03:53 BUN/Creatinine Ratio 31 (6-26) H 11/22/16 03:53 POC Glucose 101 (58-89) H 11/22/16 05:17 Troponin I 0.04 ng/mL (0-0.03) H* 11/21/16 14:15 C-Reactive Protein 13 mg/L (Less than 5) H 11/21/16 14:15 B-Natriuretic Peptide 756 pg/mL (0-100) H 11/21/16 14:15 Albumin 3.1 g/dL (3.5-5.0) L 11/22/16 03:53 Albumin/Globulin Ratio 0.9 (1.1-2.2) L 11/22/16 03:53 - Clinical Findings Intake & Output: Intake & Output 11/21/16 11/22/16 11/22/16 23:59 07:59 15:59 Intake Total 1031 / 1031 Output Total 300 / 300 950 / 950 Balance 731 / 731 -950 / -950 Weight 95 kg Consult Discharge Plan - Plan Referrals: Nicanor Araujo Jr, MD [Primary Care Provider] -
--- NOTE | 2016-11-22 11:55 | Event Note ---
Date of Encounter: 11/22/16 Time of Encounter: 11:51 Attending Attestation to Resident Note: The patient was seen and examined with the house staff. Care was discussed on multidisciplinary rounds. Full resident note is pending. This will serve as my addendum to the resident note. 1. Bradycardia 2. Hypotension 3. Atrial fibrillation 4. Encephalopathy 81-year-old white male with medical history significant for atrial fibrillation with recent up titration of his rate control regimen (long-acting diltiazem and metoprolol). The patient presented to the emergency department with symptomatic bradycardia. His heart rate was as low as the 30s. He did not respond to atropine. He was given glucagon and calcium gluconate. He was initially started on an epinephrine drip, but this has been titrated off. We are holding all AV vinod blocking agents. He did not require additional beta agonist therapy after he was weaned off the epinephrine drip. Heart rate is currently in acceptable range. Cardiology has been consulted, and I discussed the case with Dr. Guzman. Heart rate in acceptable range currently and would hold any rate control medications unless the patient develops sustained RVR. The plan is for the patient to be evaluated by electrophysiology with pacemaker placement 11/23/16. Encephalopathy appears to be secondary to ICU delirium. Will attempt to regulate sleep/wake cycle and continue supportive measures. OK for transfer to stepdown unit.
[2016-11-22] MEDS: EPINEPHrine 1 MG in D5% in Water 250 ML IVC SCH (12:15)
[2016-11-22] MEDS ORDERED: Haloperidol Lactate 5 MG/ML VIAL IVP PRN (16:44)
[2016-11-22] MEDS ORDERED: Naloxone 0.4 MG/ML INJ IVP PRN (21:05)
[2016-11-22] MEDS ORDERED: *HR* Dextrose 50 % in Water (Syg) 50 ML SYRINGE IVP PRN (21:05)
[2016-11-22] MEDS ORDERED: D5% in Water 1,000 ML IV PRN (21:05)
[2016-11-22] MEDS ORDERED: Dextrose Gel 15 GM PO PRN ×2 (21:05)
[2016-11-23] MEDS: Insulin LISPRO 300 UNITS/3 ML VIAL SQ SCH ×5 (00:22→20:52)
[2016-11-23] MEDS: ALPRAZolam 0.5 MG TABLET PO PRN ×2 (07:49→20:29)
[2016-11-23] MEDS: Pantoprazole 40 MG VIAL IVPB SCH (07:49)
[2016-11-23] MEDS ORDERED: Clindamycin 900 MG/50 ML 900 MG/50 ML IV.SOLN IVPB ONE (07:54)
[2016-11-23] MEDS ORDERED: *HR* Midazolam HCl 2 MG/2 ML VIAL ONE (08:25)
[2016-11-23] MEDS ORDERED: *HR* FentaNYL (PF) 100 MCG/2 ML VIAL ONE (08:25)
[2016-11-23] MEDS ORDERED: 0.9 % Sodium Chloride 500 ML ONE (08:26)
[2016-11-23] MEDS ORDERED: Clindamycin 600 MG/50 ML 1,200 MG/100 ML IV.SOLN IVPB ONE (08:26)
--- NOTE | 2016-11-23 08:52 | Event Note ---
Date of Encounter: 11/23/16 Time of Encounter: 08:47 Patient seen and examined. No acute issues overnight. No complaints. Scheduled to have PPM placed today. Patient and family still agreeable. EXAM: GEN: awake, alert, no distress CV: Tachycardic, A-fib, no murmurs RESP: CTAB EXT: No edema - Patient has been hypertensive and will need to restart home meds after PPM placement. - No other acute issues, will reevaluate after PPM placement. - Continue all current care
--- NOTE | 2016-11-23 09:59 | Internal Med Progress Note ---
Date of Encounter: 11/23/16 Time of Encounter: 09:00 - Assessment and plan (1) Tachy-huong syndrome Current Visit: Yes Status: Acute Assessment and plan: Tachycardic currently. Awaiting placement of permanent pacemaker today. Cardiology following. Continue to monitor with telemetry. (2) Encephalopathy acute Current Visit: Yes Status: Acute Assessment and plan: Improved. Patient is awake alert and oriented at this time. Will monitor for signs of delirium. (3) Anemia Current Visit: Yes Status: Chronic Assessment and plan: Chronic normocytic and at baseline. We will be related to chronic kidney disease Qualifiers: Anemia type: other cause Other causes of anemia: chronic disease, kidney Qualified Code(s): N18.9 - Chronic kidney disease, unspecified; D63.1 - Anemia in chronic kidney disease (4) Atrial fibrillation Current Visit: Yes Status: Chronic Assessment and plan: Chronic A. fib with RVR and tachybradycardia syndrome. Awaiting placement of permanent pacemaker. Qualifiers: Atrial fibrillation type: chronic Qualified Code(s): I48.2 - Chronic atrial fibrillation (5) Bradycardia Current Visit: Yes Status: Acute Assessment and plan: Management as above with placement of permanent pacemaker. Patient has not been to bradycardic overnight. (6) Diabetes Current Visit: Yes Status: Acute Assessment and plan: Fairly controlled. Continue current insulin regimen. Qualifiers: Diabetes mellitus type: type 2 Diabetes mellitus complication status: with kidney complications Diabetes mellitus complication detail: with chronic kidney disease Diabetes mellitus termite treater insulin use: without termite treater use Chronic kidney disease stage: stage 3 (moderate) Qualified Code(s): E11.22 - Type 2 diabetes mellitus with diabetic chronic kidney disease; N18.3 - Chronic kidney disease, stage 3 (moderate) (7) Hypotension Current Visit: Yes Status: Resolved Assessment and plan: Likely due to medications. This has resolved now. Antihypertensives on hold Qualifiers: Hypotension type: hypotension due to drug Qualified Code(s): I95.2 - Hypotension due to drugs (8) CHF (congestive heart failure) Current Visit: No Status: Chronic Assessment and plan: Chronic congestive heart failure. Symptoms not in any acute respiratory distress. Perihilar infiltrates present on chest x-ray. Likely due to congestive heart failure. Patient was recently treated for pneumonia. Qualifiers: Congestive heart failure type: diastolic Congestive heart failure chronicity: acute on chronic Qualified Code(s): I50.33 - Acute on chronic diastolic (congestive) heart failure (9) Chronic kidney disease, stage III (moderate) Current Visit: Yes Status: Acute Assessment and plan: CKD stage III due to diabetes. Creatinine is at baseline - Subjective Interval history: Patient is doing better today. Denies any chest pain. No palpitations. No nausea or vomiting. No dizziness or lightheadedness - Constitutional Vitals: Temp Pulse Resp BP Pulse Ox 98.5 F 127 18 150/100 96 11/23/16 07:36 11/23/16 08:00 11/23/16 07:36 11/23/16 07:36 11/23/16 07:36 General appearance: Present: cooperative, mild distress, A&O X 3, answers questions appropriately - Neck Neck exam general surgery: Present: supple, trachea midline. Absent: lymphadenopathy - Respiratory Respiratory exam: Present: CTAB. Absent: accessory muscle use, rales, rhonchi, wheezes - Cardiovascular Cardiovascular exam: Present: irregular rhythm, +S1, +S2, tachycardia. Absent: diastolic murmur, gallop, rubs, systolic murmur - GI/Abdominal GI/Abdominal exam: Present: normal bowel sounds, soft, no peritoneal signs. Absent: distended, tenderness - Extremities Exam Extremities exam: Present: warm, radial pulses palpable and symetrical. Absent : calf tenderness, cyanotic, pedal edema Internal Medicine: Result - Labs CBC & Chem 7: 11/22/16 03:53 11/22/16 03:53 - ABG Interpretation ABG results: ABG ABG pH 7.35 pH Units (7.32-7.45) 11/22/16 04:25 ABG pCO2 36 mmHg (35-45) 11/22/16 04:25 ABG pO2 64 mmHg (85-104) L 11/22/16 04:25 ABG O2 Saturation 91 % (95-98) L 11/22/16 04:25 PT/INR, D-dimer PT 10.5 Seconds (9.4-12.1) 11/22/16 03:53 Consult Discharge Plan - Plan Referrals: Nicanor Araujo Jr, MD [Primary Care Provider] - - Attending Attestation This document has been at least partially created by [employer] recognition technology by Dr. Coyle. Errors in grammar, wording or other phrases may exist. If errors are found after the documentation is signed, they will be addressed individually in the addendum section of this document when appropriate. Medical Decision Making - MDM Narrative Medical decision making narrative: High risk for complications due to planned procedure today. - Lab Data Lab results reviewed: Yes I reviewed the patient's lab results. Result diagrams: 11/22/16 03:53 11/22/16 03:53 Lab Results 11/21/16 11/21/16 11/22/16 Range/Units 16:12 23:21 03:53 WBC 10.7 (4.3-11.1) K/mcL RBC 3.18 L (4.19-5.50) M/mcL Hgb 9.2 L (12.9-16.9) g/dL Hct 29.1 L (37.5-50.1) % MCV 91.5 (83.0-100.0) fL MCH 28.9 (28.0-33.3) pg MCHC 31.6 (31.6-35.5) g/dL RDW 13.3 (11.5-14.5) % Plt Count 275 (140-400) K/mcL MPV 10.1 (9.4-12.4) fL Immature Gran % 1.7 (0-4) % Seg Neutrophils % 71.1 % Lymphocytes % 17.8 % Monocytes % 8.3 % Eosinophils % 0.8 % Basophils % 0.3 % Neutrophils # 7.6 (1.6-8.9) K/mcL Lymphocytes # 1.9 (0.6-4.6) K/mcL Monocytes # 0.9 (0.0-1.3) K/mcL Eosinophils # 0.1 (0.0-0.6) K/mcL Basophils # 0.0 (0.0-0.2) K/mcL PT (9.4-12.1) Seconds INR ABG pH (7.32-7.45) pH Units ABG pCO2 (35-45) mmHg ABG pO2 (85-104) mmHg ABG HCO3 (21-27) mEQ/L ABG Total CO2 (20-26) mEq/L ABG O2 Saturation (95-98) % ABG Base Excess (-2.0 to 3.0) mEq/L Blood Gas Modality Inspired O2 % Sodium (136-145) mEq/L Potassium (3.5-4.5) mEq/L Chloride (98-109) mEq/L Carbon Dioxide (19-29) mEq/L BUN (8-26) mg/dL Creatinine (0.72-1.25) mg/dL Est GFR ( Amer) (> 60) Est GFR (Non-Af Amer) (> 60) BUN/Creatinine Ratio (6-26) Glucose (70-99) mg/dL POC Glucose 336 H 96 H (58-89) Calculated Osmolality (280-300) Calcium (8.6-10.8) mg/dL Magnesium (1.6-2.6) mg/dL Total Bilirubin (0.2-1.2) mg/dL AST (5-34) Units/L ALT (0-55) Units/L Alkaline Phosphatase (38-126) Units/L Serum Total Protein (6.0-8.3) g/dL Albumin (3.5-5.0) g/dL Globulin (2.4-3.5) g/dL Albumin/Globulin Ratio (1.1-2.2) 11/22/16 11/22/16 11/22/16 Range/Units 03:53 03:53 04:25 WBC (4.3-11.1) K/mcL RBC (4.19-5.50) M/mcL Hgb (12.9-16.9) g/dL Hct (37.5-50.1) % MCV (83.0-100.0) fL MCH (28.0-33.3) pg MCHC (31.6-35.5) g/dL RDW (11.5-14.5) % Plt Count (140-400) K/mcL MPV (9.4-12.4) fL Immature Gran % (0-4) % Seg Neutrophils % % Lymphocytes % % Monocytes % % Eosinophils % % Basophils % % Neutrophils # (1.6-8.9) K/mcL Lymphocytes # (0.6-4.6) K/mcL Monocytes # (0.0-1.3) K/mcL Eosinophils # (0.0-0.6) K/mcL Basophils # (0.0-0.2) K/mcL PT 10.5 (9.4-12.1) Seconds INR 1.0 ABG pH 7.35 (7.32-7.45) pH Units ABG pCO2 36 (35-45) mmHg ABG pO2 64 L (85-104) mmHg ABG HCO3 19.9 L (21-27) mEQ/L ABG Total CO2 21.0 (20-26) mEq/L ABG O2 Saturation 91 L (95-98) % ABG Base Excess -5.2 L (-2.0 to 3.0) mEq/L Blood Gas Modality nc Inspired O2 28 % Sodium 138 (136-145) mEq/L Potassium 4.7 H (3.5-4.5) mEq/L Chloride 111 H (98-109) mEq/L Carbon Dioxide 17 L (19-29) mEq/L BUN 46 H (8-26) mg/dL Creatinine 1.49 H (0.72-1.25) mg/dL Est GFR ( Amer) 55 L (> 60) Est GFR (Non-Af Amer) 45 L (> 60) BUN/Creatinine Ratio 31 H (6-26) Glucose 90 (70-99) mg/dL POC Glucose (58-89) Calculated Osmolality 297 (280-300) Calcium 9.3 (8.6-10.8) mg/dL Magnesium 1.7 (1.6-2.6) mg/dL Total Bilirubin 0.7 (0.2-1.2) mg/dL AST 24 (5-34) Units/L ALT 22 (0-55) Units/L Alkaline Phosphatase 118 (38-126) Units/L Serum Total Protein 6.5 (6.0-8.3) g/dL Albumin 3.1 L (3.5-5.0) g/dL Globulin 3.4 (2.4-3.5) g/dL Albumin/Globulin Ratio 0.9 L (1.1-2.2) 11/22/16 11/22/16 11/22/16 Range/Units 05:17 11:37 17:41 WBC (4.3-11.1) K/mcL RBC (4.19-5.50) M/mcL Hgb (12.9-16.9) g/dL Hct (37.5-50.1) % MCV (83.0-100.0) fL MCH (28.0-33.3) pg MCHC (31.6-35.5) g/dL RDW (11.5-14.5) % Plt Count (140-400) K/mcL MPV (9.4-12.4) fL Immature Gran % (0-4) % Seg Neutrophils % % Lymphocytes % % Monocytes % % Eosinophils % % Basophils % % Neutrophils # (1.6-8.9) K/mcL Lymphocytes # (0.6-4.6) K/mcL Monocytes # (0.0-1.3) K/mcL Eosinophils # (0.0-0.6) K/mcL Basophils # (0.0-0.2) K/mcL PT (9.4-12.1) Seconds INR ABG pH (7.32-7.45) pH Units ABG pCO2 (35-45) mmHg ABG pO2 (85-104) mmHg ABG HCO3 (21-27) mEQ/L ABG Total CO2 (20-26) mEq/L ABG O2 Saturation (95-98) % ABG Base Excess (-2.0 to 3.0) mEq/L Blood Gas Modality Inspired O2 % Sodium (136-145) mEq/L Potassium (3.5-4.5) mEq/L Chloride (98-109) mEq/L Carbon Dioxide (19-29) mEq/L BUN (8-26) mg/dL Creatinine (0.72-1.25) mg/dL Est GFR ( Amer) (> 60) Est GFR (Non-Af Amer) (> 60) BUN/Creatinine Ratio (6-26) Glucose (70-99) mg/dL POC Glucose 101 H 271 H 209 H (58-89) Calculated Osmolality (280-300) Calcium (8.6-10.8) mg/dL Magnesium (1.6-2.6) mg/dL Total Bilirubin (0.2-1.2) mg/dL AST (5-34) Units/L ALT (0-55) Units/L Alkaline Phosphatase (38-126) Units/L Serum Total Protein (6.0-8.3) g/dL Albumin (3.5-5.0) g/dL Globulin (2.4-3.5) g/dL Albumin/Globulin Ratio (1.1-2.2) 11/22/16 11/23/16 Range/Units 23:46 05:53 WBC (4.3-11.1) K/mcL RBC (4.19-5.50) M/mcL Hgb (12.9-16.9) g/dL Hct (37.5-50.1) % MCV (83.0-100.0) fL MCH (28.0-33.3) pg MCHC (31.6-35.5) g/dL RDW (11.5-14.5) % Plt Count (140-400) K/mcL MPV (9.4-12.4) fL Immature Gran % (0-4) % Seg Neutrophils % % Lymphocytes % % Monocytes % % Eosinophils % % Basophils % % Neutrophils # (1.6-8.9) K/mcL Lymphocytes # (0.6-4.6) K/mcL Monocytes # (0.0-1.3) K/mcL Eosinophils # (0.0-0.6) K/mcL Basophils # (0.0-0.2) K/mcL PT (9.4-12.1) Seconds INR ABG pH (7.32-7.45) pH Units ABG pCO2 (35-45) mmHg ABG pO2 (85-104) mmHg ABG HCO3 (21-27) mEQ/L ABG Total CO2 (20-26) mEq/L ABG O2 Saturation (95-98) % ABG Base Excess (-2.0 to 3.0) mEq/L Blood Gas Modality Inspired O2 % Sodium (136-145) mEq/L Potassium (3.5-4.5) mEq/L Chloride (98-109) mEq/L Carbon Dioxide (19-29) mEq/L BUN (8-26) mg/dL Creatinine (0.72-1.25) mg/dL Est GFR ( Amer) (> 60) Est GFR (Non-Af Amer) (> 60) BUN/Creatinine Ratio (6-26) Glucose (70-99) mg/dL POC Glucose 153 H 135 H (58-89) Calculated Osmolality (280-300) Calcium (8.6-10.8) mg/dL Magnesium (1.6-2.6) mg/dL Total Bilirubin (0.2-1.2) mg/dL AST (5-34) Units/L ALT (0-55) Units/L Alkaline Phosphatase (38-126) Units/L Serum Total Protein (6.0-8.3) g/dL Albumin (3.5-5.0) g/dL Globulin (2.4-3.5) g/dL Albumin/Globulin Ratio (1.1-2.2)
[2016-11-23] MEDS ORDERED: 0.9 % Sodium Chloride 1,000 ML ONE (10:03)
--- NOTE | 2016-11-23 10:18 | Pre-Sedation Evaluation ---
Pre-sedation evaluation - Pre-sedation checklist Date of procedure: 11/23/16 Procedure: Pacemaker Recent Vitals: Last Vital Signs Temp 98.5 F 11/23/16 07:36 Pulse 127 11/23/16 08:00 Resp 18 11/23/16 07:36 BP 150/100 11/23/16 07:36 Pulse Ox 96 11/23/16 07:36 H&P (including ROS) documented in medical record: Yes Previous reaction to sedatives/anesthetics: No Dietary Status: NPO after Midnight Airway Assessment: Patient can open mouth completely, TMJ function normal, Micrognathia (under-bite, receding chin) absent Dentition: dentures removed Possible difficult airway: No ASA Classification *see protocol: CLASS II-Mild systemic disease Plan of Care: Pt appropriate candidate for procedure/moderate/conscious sedation , Risks/benefits of procedure/sedation discussed w/ patient/family
[2016-11-23] MEDS ORDERED: *HR* Morphine 2 MG/ML SYRINGE IVP PRN (11:22)
[2016-11-23] MEDS ORDERED: Acetaminophen 325 MG TABLET PO PRN (11:22)
--- NOTE | 2016-11-23 11:36 | Invasive Diagnostic Lab ---
Single Chamber Pacemaker Insertion Name: Erlin Bowser Date of Study: 11/23/2016 Date: 1935 Ht: 175.0 cm / 68.9 in Medical Record#: [id number] Age: 81 Wt: 90.0 kg / 198.4 lb Gender: Male BSA: 2.06 Location: Fluoro Dose: 243 mGy BMI: 29.39 Performing MD: Juan Julian MD, [facility] Procedures Performed: Procedure PM INSERTION SINGLE LEAD - V LEAD Indications: Description tachybrady Impressions: * Successful implant of single chamber pacemaker generator. Degree of difficulty was moderate. Appropriate functionality was observed at the end of the case. Procedure completed without incident. Recommendations: The patient will follow-up in 4-6 weeks for a post-pacemaker interrogation and evaluation with their Smoking Pipes Cleaner. Procedure Description: After informed consent was obtained, the patient was brought to the laboratory in the fasting, post absorptive state. The patient was prepped and draped in sterile fashion exposing the left chest. Local anesthesia was performed using 1% Lidocaine. A 4cm incision was created two fingerbreadths below and parallel to the clavicle and carried down to the prepectoral fascia. At that level, a pocket was created to accomodate and size the hardware. This portion of the procedure used sharp dissection, blunt dissection and electrocautery. Venous access was obtained using an axillary vein stick with a modified Seldinger technique using one 7-Danish Cook sheaths. The right ventricular lead was manipulated under direct fluoroscopy to find the physically stable and electrically optimal location in the RV Troy. Hemostasis was obtained. The previously placed sponge was removed from the pocket. The pocket was copiously irrigated with antibiotic solution. The device was connected to the lead in standard fashion and set screws deployed. The device was placed in the pocket. No anchoring sutures were placed. The wound was closed in layers starting with 2-0 Vicryl for the deep layer and 4-0 Vicryl for the skin. Steri-Strips were placed and 4x4s secured with tape. The patient tolerated the procedure well. Complications: None Disposition: The patient was returned to the recovery room. Patient will be scheduled to have a follow-up wound check in one week here at [facility]. PPM Device Information: Biodiesel Processing Technician Model Name Model No. Serial No. [employer] Adapta SR [id number] [id number] PPM Lead(s) Information: Biodiesel Processing Technician Model Name Model No. Serial No. Placement Medtronic CapSure Fix Novus 5076-58 [id number] RV Troy Device Measurement Data: Sensing (mV) Threshold (V) / (msec) Impedance (Ohms) Atrial Lead RV Lead 5.8 0.9 / 0.5 595 LV Lead Device Settings: MODE: VVIR Lower Rate: 60 bpm MINO Delay: Upper Rate: 120 bpm PAV Delay: Procedure Medications: Time Medication Dose Unit Route 10:15 AM Oxygen 2 L/min nasal cannula 10:15 AM Versed 1 Mg Intravenous 10:16 AM Fentanyl 25 Mcg Intravenous 10:17 AM Clindamycin 600 mg Intravenous 10:30 AM Lidocaine 2% 10 mL Subcutaneous 10:38 AM Oxygen 4 L/min nasal cannula Contrast: Isovue 0 ml. Complications: No complications occurred during the procedure. Complication None Updated by Juan Julian MD, FACC on 11/23/2016 11:29:22 AM electronically signed on 11/23/2016 11:30:01 AM with status of Final
[2016-11-23] MEDS ORDERED: D5% in Water 1,000 ML IV PRN (12:28)
[2016-11-23] MEDS ORDERED: *HR* Metoprolol 5 MG/5 ML VIAL IVP ONE (15:05)
[2016-11-23] MEDS: Diltiazem CD (24hr) 180 MG CAPSULE PO SCH (15:42)
[2016-11-23] MEDS: *HR* Heparin 5,000 UNIT/ML VIAL SQ SCH ×2 (15:42→22:45)
[2016-11-23] MEDS: Clindamycin 900 MG/50 ML 900 MG/50 ML IV.SOLN IVPB SCH (20:16)
[2016-11-24] MEDS: ALPRAZolam 0.5 MG TABLET PO PRN (02:44)
[2016-11-24 05:21] LABS: BUN/Creatinine Ratio 23 (6-26); Carbon Dioxide 17 mEq/L (19-29); Chloride 110 mEq/L (98-109); Potassium 4.9 mEq/L (3.5-4.5); Sodium 139 mEq/L (136-145); eGFR For African Americans 53 (> 60); eGFR For Non-African Americans 44 (> 60)
[2016-11-24 05:24] LABS: Blood Urea Nitrogen 35 mg/dL (8-26)
[2016-11-24] MEDS: Diltiazem CD (24hr) 180 MG CAPSULE PO SCH (07:43)
[2016-11-24] MEDS: *HR* Heparin 5,000 UNIT/ML VIAL SQ SCH (07:43)
[2016-11-24] MEDS: Clindamycin 900 MG/50 ML 900 MG/50 ML IV.SOLN IVPB SCH (07:43)
[2016-11-24] MEDS: Pantoprazole 40 MG VIAL IVPB SCH (07:43)
[2016-11-24] MEDS: Insulin LISPRO 300 UNITS/3 ML VIAL SQ SCH ×2 (07:44→12:15)
--- NOTE | 2016-11-24 10:03 | Cardiology Progress Note ---
Date of Encounter: 11/24/16 Time of Encounter: 09:30 Assessment and Plan (1) Tachy-huong syndrome Current Visit: Yes Status: Acute s/p implant Medtronic single lead PPM. CXR yesterday evening demonstrated stable chest; CXR this AM pending. Device check completed this AM demonstrated normal functioning PPM. Post PPM implant instructions including restrictions, care of site, and follow- up discussed with patient and who verbalized understanding. Follow-up appointments made for [facility]--see discharge instructions. (2) Atrial fibrillation Current Visit: Yes Status: Chronic Hx of atrial fibrillation. RVR yesterday evening, calcium channel chela re-started. 12 hour tele: avg HG=186 Afib, will re-start home betablocker now and monitor HR. Poor candidate for long-term anticoagulation d/t fall risk, dementia, anemia. Previously on coumadin, however discontinued by PCP d/t concern for GI bleed. Continue asa. Qualifiers: Atrial fibrillation type: chronic Qualified Code(s): I48.2 - Chronic atrial fibrillation (3) LBBB (left bundle branch block) Current Visit: Yes Status: Chronic Chronic Discussion w patient/family: The assessment and plan as outlined above was discussed with the patient and/or family members who expressed understanding and agreement. All questions were answered. Thank you for involving us in the care of your patient. Please call with any questions. The patient will be discussed and reviewed with Dr. Guzman. Subjective Principal diagnosis: Tachy-huong syndrome Interval history: s/p single lead PPM. No complaints overnight-- at bedside. Confused--at baseline. Objective Vital Signs, Last 4 Hours Temp Pulse Resp BP Pulse Ox 11/24/16 09:00 108 11/24/16 08:00 110 11/24/16 07:35 99.0 F 106 18 132/92 96 11/24/16 07:26 99.0 F 106 18 132/92 95 General: Conversant, No Apparent Distress HEENT: Atraumatic, Normocephaly, Mucus Membranes Moist Cardiac: Other (irregularly irregular) Neuro: Alert and responsive (to self only. ) Abdomen: Soft Skin: Other (left upper chest wall incision stable, no hematoma or ecchymosis. ) Extremities: No Edema, Normal Pulses Results 11/22/16 03:53 11/24/16 04:19 Lab Results 11/24/16 04:19 Sodium 139 Potassium 4.9 H Chloride 110 H Carbon Dioxide 17 L BUN 35 H D Creatinine 1.53 H Active Medications Acetaminophen (Tylenol) 650 mg PO Q4HR PRN PRN Reason: Mild Pain Stop: 05/25/17 11:23 Alprazolam (Xanax) 0.5 mg PO TID PRN; Protocol PRN Reason: Anxiety Stop: 05/23/17 16:44 Last Admin: 11/24/16 02:44 Dose: 0.5 mg Dextrose/Water (Dextrose 50% (Syg)) 25 ml IVP AD PRN PRN Reason: Hypoglycemia Stop: 05/23/17 16:46 Diltiazem HCl (Cardizem Cd) 360 mg PO DAILY [facility] Stop: 05/25/17 15:16 Last Admin: 11/24/16 07:43 Dose: 360 mg Glucagon (Glucagen) 1 mg IM ONCE PRN PRN Reason: Hypoglycemia Stop: 05/23/17 16:46 Glucose (Gluctose) 15 gm PO ONCE PRN PRN Reason: Hypoglycemia Stop: 05/23/17 16:46 Glucose (Gluctose) 30 gm PO ONCE PRN PRN Reason: Hypoglycemia Stop: 05/23/17 16:46 Heparin Sodium (Porcine) (Heparin) 5,000 unit SQ Q8HCO [facility] Stop: 05/25/17 15:16 Last Admin: 11/24/16 07:43 Dose: 5,000 unit Clindamycin Phosphate/Dextrose (Cleocin 900 Mg/50 Ml) 900 mg in 50 mls @ 100 mls/hr IVPB PREOP ONE Last Admin: 11/23/16 11:17 Dose: Not Given Dextrose (Dextrose 5%) 1,000 mls @ 100 mls/hr IV CONT PRN PRN Reason: HYPOGLYCEMIA Stop: 05/25/17 12:29 Insulin Human Lispro (Humalog) 0 units SQ ACHS ROQUE PRN Reason: Protocol Stop: 05/25/17 17:01 Last Admin: 11/24/16 07:44 Dose: 2 units Metoprolol Tartrate (Lopressor) 25 mg PO BID [facility] Stop: 05/26/17 09:46 Last Admin: 11/24/16 09:47 Dose: 25 mg Morphine Sulfate (Morphine Sulfate) 2 mg IVP Q4HR PRN PRN Reason: Severe Pain Stop: 05/25/17 11:23 Last Admin: 11/24/16 07:42 Dose: 2 mg Naloxone HCl (Narcan) 0.4 mg IVP Q2MIN PRN PRN Reason: Opioid Reversal Stop: 05/23/17 15:57 Pantoprazole Sodium (Protonix) 40 mg IVPB DAILY ROQUE Stop: 05/24/17 09:01 Last Admin: 11/24/16 07:43 Dose: 40 mg - Imaging and Cardiology Echo: report reviewed Other Results: 12 hour tele: avg BG=109 afib - EKG Interpretation EKG results cardiology: personally reviewed Consult Discharge Plan - Plan Additional Instructions: ACTIVITY: Moderate activity for the next 7 days. No lifting more than 5 pounds ( gallon of milk) for 4-6 weeks. Avoid lifting your arm on the same side as the device for 4 weeks. BATHING /SHOWERING: Do not remove the large bandage over the site for 2 days. Do not allow the device to get wet for 7-10 days. You may bathe/shower, but do not use soap and water on the site. When bathing, keep the site dry by covering with Saran wrap or a towel. WOUND CARE: The white steri-strips will start to peel away and come off after 14 days, or your doctor will remove them after [address] into or on top of the incision. Do not use cotton swabs. Do not use any antibiotic ointment or Vitamin E on the site. REMINDERS: You may use electrical devices, such as, microwaves, hair dryers, electric razors, electric blankets, etc. as long as they are in good condition and kept 6 -8 inches away from the device. It is recommended to use cell phones on the opposite side of your device. Notify security personnel at the airport that you have a device before you go through airport security screening. When at places with security monitors, such as a grocery store, do not linger near these monitors. It is fine to walk past them in a normal manner. Refer to your owners manual for more specific directions. CARRY YOUR PACEMAKER/ICD CARD WITH YOU AT ALL TIMES Return to work as instructed per physician Resume driving as instructed per physician Keep all scheduled follow up appointments Resume medications as instructed Contact [facility] ( ) if: You develop excessive bleeding from insertion or wound site not controlled by applying pressure You develop a fever greater than 101 degrees Fahrenheit Your incision becomes reddened at or around the site Your incision develops yellowish or greenish drainage or development of white pimple-like bumps You experience excessive pain You develop swelling in your ankles You experience muscle switching You develop excessive hiccupping If you experience chest pain, shortness of breath, dizziness, or extreme tiredness, stop the activity and rest. Please notify [facility] office if you experience any of these symptoms and they are not relieved by rest please call 911! Referrals: wound, check [Other] - 11/30/16 10:00 am device, check [Other] - 12/29/16 9:30 am Nicanor Araujo Jr, MD [Primary Care Provider] - 11/27/16 3:50 pm Juan Julian MD [Partnered Physician] - 02/23/17 12:30 pm
--- NOTE | 2016-11-24 11:13 | Discharge Summary ---
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 (2) Encephalopathy acute Priority: Secondary Status: Acute (3) Anemia Priority: Secondary Status: Chronic Qualifiers: Anemia type: other cause Other causes of anemia: chronic disease, kidney Qualified Code(s): N18.9 - Chronic kidney disease, unspecified; D63.1 - Anemia in chronic kidney disease (4) Atrial fibrillation Priority: Secondary Status: Chronic Qualifiers: Atrial fibrillation type: chronic Qualified Code(s): I48.2 - Chronic atrial fibrillation (5) Bradycardia Priority: Secondary Status: Acute (6) Diabetes Priority: Secondary Status: Acute Qualifiers: Diabetes mellitus type: type 2 Diabetes mellitus complication status: with kidney complications Diabetes mellitus complication detail: with chronic kidney disease Diabetes mellitus longterm insulin use: without intermission coordinator use Chronic kidney disease stage: stage 3 (moderate) Qualified Code(s): E11.22 - Type 2 diabetes mellitus with diabetic chronic kidney disease; N18.3 - Chronic kidney disease, stage 3 (moderate) (7) Hypotension Priority: Secondary Status: Resolved Qualifiers: Hypotension type: hypotension due to drug Qualified Code(s): I95.2 - Hypotension due to drugs (8) CHF (congestive heart failure) Priority: Secondary Status: Chronic Qualifiers: Congestive heart failure type: diastolic Congestive heart failure chronicity: acute on chronic Qualified Code(s): I50.33 - Acute on chronic diastolic (congestive) heart failure (9) Chronic kidney disease, stage III (moderate) Priority: Secondary Status: Acute - Discharge Medications Home Medications: Alprazolam [Xanax 0.5 MG Tablet] 0.5 mg PO TID PRN 01/16/16 [History] Glimepiride [Amaryl] 4 mg PO QAM 01/16/16 [History] Sitagliptin Phosphate [Januvia] 50 mg PO DAILY #0 01/16/16 [History] Amlodipine [Norvasc] 5 mg PO DAILY #30 tablet 01/17/16 [Rx] Aspirin 81 mg PO DAILY #30 tab.chew 11/11/16 [Rx] Diltiazem CD (24hr) [Cardizem CD] 360 mg PO DAILY #60 cap.er.24h 11/11/16 [Rx] Doxycycline Hyclate [Morgidox] 100 mg PO BID 11/21/16 [History] Folic Acid 1 mg PO DAILY 11/21/16 [History] Furosemide [Lasix] 40 mg PO DAILY 11/21/16 [History] Guaifenesin [Mucinex] 600 mg PO BID 11/21/16 [History] Metoprolol [Lopressor] 25 mg PO BID 11/21/16 [History] Allergies/Adverse Reactions: Allergies Penicillins Allergy (Verified 01/16/16 11:27) Hives Procedures/tests Complete & Pending: Procedures Performed prior 72 hours Category Date Time Status CL Insert Permanent Pacemaker [CL] Routine Pleat Patternmaker 11/23/16 07:54 Completed ECG 12 lead ECG [ECG] AM 0600 Y 11/22/16 06:00 Completed ECG 12 lead ECG [ECG] Routine Y 11/21/16 14:37 Completed Date of admission: 11/21/16 15:17 Primary care physician: Nicanor Araujo Jr, MD Consults: 11/23/16 07:24 Consult to Cardiology [CONS] Routine Comment: Consulting Provider: Cardiology Ann Reason for Consult: consult stopped on transfer has pacemaker implant today. Call Completed: No Discharging clinician: Clari Coyle Anticipated date of discharge: 11/24/16 - Patient Status Disposition: Home, Self-Care Condition: Good Functional capacity at discharge: wheelchair bound (Due to instability, gout and left knee osteoarthritis for One to 3 months) Overall status at discharge: patient is progressing back to baseline - Discharge Instructions Instructions: Pacemaker (DC) Follow Up With: wound, check [Other] - 11/30/16 10:00 am device, check [Other] - 12/29/16 9:30 am Nicanor Araujo Jr, MD [Primary Care Provider] - 11/27/16 3:50 pm Juan Julian MD [Partnered Physician] - 02/23/17 12:30 pm Additional Instructions: ACTIVITY: Moderate activity for the next 7 days. No lifting more than 5 pounds ( gallon of milk) for 4-6 weeks. Avoid lifting your arm on the same side as the device for 4 weeks. BATHING /SHOWERING: Do not remove the large bandage over the site for 2 days. Do not allow the device to get wet for 7-10 days. You may bathe/shower, but do not use soap and water on the site. When bathing, keep the site dry by covering with Saran wrap or a towel. WOUND CARE: The white steri-strips will start to peel away and come off after 14 days, or your doctor will remove them after [address] anything into or on top of the incision. Do not use cotton swabs. Do not use any antibiotic ointment or Vitamin E on the site. REMINDERS: You may use electrical devices, such as, microwaves, hair dryers, electric razors, electric blankets, etc. as long as they are in good condition and kept 6 -8 inches away from the device. It is recommended to use cell phones on the opposite side of your device. Notify security personnel at the airport that you have a device before you go through airport security screening. When at places with security monitors, such as a grocery store, do not linger near these monitors. It is fine to walk past them in a normal manner. Refer to your owners manual for more specific directions. CARRY YOUR PACEMAKER/ICD CARD WITH YOU AT ALL TIMES Return to work as instructed per physician Resume driving as instructed per physician Keep all scheduled follow up appointments Resume medications as instructed Contact [facility] ( ) if: You develop excessive bleeding from insertion or wound site not controlled by applying pressure You develop a fever greater than 101 degrees Fahrenheit Your incision becomes reddened at or around the site Your incision develops yellowish or greenish drainage or development of white pimple-like bumps You experience excessive pain You develop swelling in your ankles You experience muscle switching You develop excessive hiccupping If you experience chest pain, shortness of breath, dizziness, or extreme tiredness, stop the activity and rest. Please notify [facility] office if you experience any of these symptoms and they are not relieved by rest please call 911! - Diet and Activity Activity: as per the cardiac rehab, other Diet: advance to your usual diet, diabetic diet, low fat, low cholesterol, low salt diet Hospital course: Mr. Bowser is a 81 year old male with history of atrial fibrillation who was admitted here for symptomatic bradycardia. 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 Cardiology evaluated him and recommended placement of permanent pacemaker. Patient underwent recent of permanent pacemaker yesterday and since then he has been doing well. He has not been placed back on his usual rate controlling medications and his heart rate has improved. Feels much better and he is stable to be discharged home. He will follow up with cardiology after discharge for further management. - Time Spent with Patient Total time spent providing and/or coordinating discharge services: Greater than 30 minutes (35 min) - Constitutional Vitals: Temp Pulse Resp BP Pulse Ox 99.0 F 108 18 132/92 96 11/24/16 07:35 11/24/16 09:00 11/24/16 07:35 11/24/16 07:35 11/24/16 07:35 General appearance: Present: cooperative, mild distress, A&O X 3, answers questions appropriately - Respiratory Respiratory exam: Present: CTAB. Absent: accessory muscle use, rales, rhonchi, wheezes - Cardiovascular Cardiovascular exam: Present: irregular rhythm, +S1, +S2. Absent: diastolic murmur, gallop, rubs, systolic murmur - GI/Abdominal GI/Abdominal exam: Present: normal bowel sounds, soft, no peritoneal signs. Absent: distended, tenderness - Extremities Exam Extremities exam: Present: warm, radial pulses palpable and symetrical. Absent : calf tenderness, cyanotic, pedal edema - Neurological Exam Neurological exam: Present: oriented X3, no focal deficits, strengths equal and symetr throughout. Absent: facial droop, speech deficit - Attending Attestation This document has been at least partially created by [employer] recognition technology by Dr. Coyle. Errors in grammar, wording or other phrases may exist. If errors are found after the documentation is signed, they will be addressed individually in the addendum section of this document when appropriate.
[2016-11-24 11:14] VITALS: BP 112/70
[2016-11-24] MEDS ORDERED: Furosemide 40 MG/4 ML VIAL IVP ONE (11:56)
== END 2016-11-24 12:46 | disposition home or self-care (01) | DRG 242 ==
LOC: EMEROO 13:16 → ICNU 15:17 → 2NNU 11-22 19:32
PROVIDERS: ADMIT Internal Medicine; ATTEND Internal Medicine

== ENCOUNTER 2016-12-01 15:08 | Observation (INO) ==
[2016-12-01] MEDS ORDERED: 0.9 % Sodium Chloride 250 ML IVC ONE (15:40)
--- NOTE | 2016-12-01 15:43 | Emergency Department Note ---
Disposition Clinical Impression: Hyperglycemia, Confusion Disposition: Admitted As Inpatient Condition: Good Referrals: Nicanor Araujo Jr, MD [Primary Care Provider] - Forms: Work/School Release, ED Satisfaction Letter Time of Disposition: 18:22 General Adult HPI - General Chief complaint: ED General Medical Stated complaint: High Blood Sugar Time Seen by Provider: 12/01/16 15:32 Source: patient, family Mode of arrival: EMS Limitations: no limitations Nursing Notes Reviewed: Yes Vital Signs Reviewed: Yes - History of Present Illness HPI Narrative: 81-year-old type II diabetic comes in with increasing confusion and elevated blood sugar. Patient had a pacemaker placed several days ago. stated these been a little bit confused today. She also notes a blood sugar reading high. She was sent to the urgent care blood sugar was over 500 on arrival here blood sugars over 500. Pt Subjective Complaint: Elevated blood sugar Onset (ago): day(s) Pain Scale: 0 - Related Data Home Medications Medication Instructions Recorded Confirmed Alprazolam [Xanax 0.5 MG Tablet] 0.5 mg PO TID PRN 01/16/16 11/21/16 Glimepiride [Amaryl] 4 mg PO QAM 01/16/16 11/21/16 Sitagliptin Phosphate [Januvia] 50 mg PO DAILY #0 01/16/16 11/21/16 Doxycycline Hyclate [Morgidox] 100 mg PO BID 11/21/16 11/21/16 Folic Acid 1 mg PO DAILY 11/21/16 11/21/16 Furosemide [Lasix] 40 mg PO DAILY 11/21/16 11/21/16 Guaifenesin [Mucinex] 600 mg PO BID 11/21/16 11/21/16 Metoprolol [Lopressor] 25 mg PO BID 11/21/16 11/21/16 Previous Rx's Medication Instructions Recorded Amlodipine [Norvasc] 5 mg PO DAILY #30 tablet 01/17/16 Aspirin 81 mg PO DAILY #30 tab.chew 11/11/16 Diltiazem CD (24hr) [Cardizem CD] 360 mg PO DAILY #60 cap.er.24h 11/11/16 Allergies Allergy/AdvReac Type Severity Reaction Status Date / Time Penicillins Allergy Hives Verified 01/16/16 11:27 Constitutional: Denies: fever, chills, weakness, weight change Eyes: Denies: eye pain, eye discharge, vision change ENT ED: Denies: ear pain, throat pain, dental pain, hearing loss, epistaxis, congestion, dysphagia Cardiovascular: Denies: chest pain, palpitations, dyspnea on exertion, edema, syncope Respiratory: Denies: cough, dyspnea, wheezes, hemoptysis, stridor Gastrointestinal: Denies: abdominal pain, nausea, vomiting, diarrhea, constipation, hematemesis, melena, hematochezia Genitourinary: Denies: urgency, dysuria, frequency, hematuria Musculoskeletal: Denies: back pain, neck pain, arthralgia, myalgia Integumentary: Denies: rash, abrasion, lesions Neurological: Reports: confusion. Denies: headache, weakness, numbness, paresthesias, abnormal gait, vertigo Psychiatric: Denies: anxiety, depression, suicidal thoughts, homicidal thoughts , auditory hallucinations, visual hallucinations Endocrine: Denies: fatigue Hematological/Lymphatic: Denies: easy bleeding, easy bruising Allergic/Immunologic: Denies: facial swelling, urticaria Past Medical History - Past Medical History Medical history: Reports: diabetes, hypertension, other Surgical history: Reports: appendectomy, cataract, cholecystectomy, knee replacement Psychiatric history: Reports: anxiety - Social History Smoking Status: Never smoker Smokeless Tobacco Status: No Alcohol use: Reports: none Drug use: Reports: none Physical Exam - General Limitations: no limitations General appearance: in no apparent distress, lethargic - Head Head exam: atraumatic, normocephalic, normal inspection - Eye Eye exam: Present: normal appearance, PERRL, EOMI - ENT ENT exam: normal exam, normal oropharynx, mucous membranes moist - Neck Neck exam: Present: normal inspection, full ROM, trachea midline - Chest Chest inspection: Present: normal inspection, symmetric chest wall rise, other ( Pacemaker insertion site is clean dry no redness or drainage) - Respiratory Respiratory exam: Present: normal lung sounds bilaterally - Cardiovascular Cardiovascular exam: Present: regular rate, normal rhythm, normal heart sounds - Abdominal Exam Abdominal exam: Present: soft, Non-Tender. Absent: tenderness, distention, guarding, rebound, rigidity - Extremities Exam Extremities exam: Present: normal inspection, full ROM. Absent: tenderness, pedal edema - Expanded Lower Extremity Exam Neurovascular/Tendon exam: Absent: motor deficit, sensory deficit, tendon deficit - Back Exam Back exam: Present: normal inspection, full ROM. Absent: tenderness - Neurological Exam Neurological exam: Present: alert, oriented X3 - Psychiatric Psychiatric exam: Present: normal affect, normal mood - Skin Skin exam: Present: warm, dry, intact, normal color Course - Consultations Consultation #1: Discussed with Rocio Shrestha nurse practitioner who will admit the patient Time: 18:22 Vital Signs Temperature 98.2 F 12/01/16 15:21 Pulse Rate 65 12/01/16 15:21 Respiratory Rate 18 12/01/16 15:21 Blood Pressure 152/84 12/01/16 15:21 O2 Sat by Pulse Oximetry 95 12/01/16 15:21 Temperature 98.2 F 12/01/16 15:21 Pulse Rate 61 12/01/16 18:13 Respiratory Rate 18 12/01/16 18:13 Blood Pressure 153/89 12/01/16 18:13 O2 Sat by Pulse Oximetry 96 12/01/16 18:13 Oxygen Delivery Oxygen Delivery Room Air Medical Decision Making - Lab Data Lab results reviewed: Yes I reviewed the patient's lab results. Result diagrams: 12/01/16 16:42 12/01/16 16:42 Lab Results 12/01/16 12/01/16 12/01/16 Range/Units 15:13 15:50 16:42 WBC 11.7 H (4.3-11.1) K/mcL RBC 3.05 L (4.19-5.50) M/mcL Hgb 8.8 L (12.9-16.9) g/dL Hct 27.5 L (37.5-50.1) % MCV 90.2 (83.0-100.0) fL MCH 28.9 (28.0-33.3) pg MCHC 32.0 (31.6-35.5) g/dL RDW 13.6 (11.5-14.5) % Plt Count 298 (140-400) K/mcL MPV 10.3 (9.4-12.4) fL Immature Gran % 3.8 (0-4) % Seg Neutrophils % 81.2 % Lymphocytes % 6.6 % Monocytes % 8.1 % Eosinophils % 0.1 % Basophils % 0.2 % Neutrophils # 9.5 H (1.6-8.9) K/mcL Lymphocytes # 0.8 (0.6-4.6) K/mcL Monocytes # 1.0 (0.0-1.3) K/mcL Eosinophils # 0.0 (0.0-0.6) K/mcL Basophils # 0.0 (0.0-0.2) K/mcL PT (9.4-12.1) Seconds INR APTT (26.0-36.0) Seconds Sodium (136-145) mEq/L Potassium (3.5-4.5) mEq/L Chloride (98-109) mEq/L Carbon Dioxide (19-29) mEq/L BUN (8-26) mg/dL Creatinine (0.72-1.25) mg/dL Est GFR ( Amer) (> 60) Est GFR (Non-Af Amer) (> 60) BUN/Creatinine Ratio (6-26) Glucose (70-99) mg/dL POC Glucose 526 H* 507 H* (58-89) Calculated Osmolality (280-300) Calcium (8.6-10.8) mg/dL Total Bilirubin (0.2-1.2) mg/dL Direct Bilirubin (0.0-0.5) mg/dL Indirect Bilirubin (0.0-1.2) mg/dL AST (5-34) Units/L ALT (0-55) Units/L Alkaline Phosphatase (38-126) Units/L Troponin I (0-0.03) ng/mL Serum Total Protein (6.0-8.3) g/dL Albumin (3.5-5.0) g/dL Globulin (2.4-3.5) g/dL Albumin/Globulin Ratio (1.1-2.2) Beta-Hydroxybutyric Acd (0.02-0.27) mmol/L 12/01/16 12/01/16 12/01/16 Range/Units 16:42 16:42 16:42 WBC (4.3-11.1) K/mcL RBC (4.19-5.50) M/mcL Hgb (12.9-16.9) g/dL Hct (37.5-50.1) % MCV (83.0-100.0) fL MCH (28.0-33.3) pg MCHC (31.6-35.5) g/dL RDW (11.5-14.5) % Plt Count (140-400) K/mcL MPV (9.4-12.4) fL Immature Gran % (0-4) % Seg Neutrophils % % Lymphocytes % % Monocytes % % Eosinophils % % Basophils % % Neutrophils # (1.6-8.9) K/mcL Lymphocytes # (0.6-4.6) K/mcL Monocytes # (0.0-1.3) K/mcL Eosinophils # (0.0-0.6) K/mcL Basophils # (0.0-0.2) K/mcL PT 11.6 (9.4-12.1) Seconds INR 1.1 APTT 26.5 (26.0-36.0) Seconds Sodium 130 L (136-145) mEq/L Potassium 4.9 H (3.5-4.5) mEq/L Chloride 102 (98-109) mEq/L Carbon Dioxide 16 L (19-29) mEq/L BUN 61 H (8-26) mg/dL Creatinine 2.11 H (0.72-1.25) mg/dL Est GFR ( Amer) 37 L (> 60) Est GFR (Non-Af Amer) 30 L (> 60) BUN/Creatinine Ratio 29 H (6-26) Glucose 546 H* (70-99) mg/dL POC Glucose (58-89) Calculated Osmolality 312 H (280-300) Calcium 8.6 (8.6-10.8) mg/dL Total Bilirubin 0.3 (0.2-1.2) mg/dL Direct Bilirubin 0.2 (0.0-0.5) mg/dL Indirect Bilirubin 0.1 (0.0-1.2) mg/dL AST 14 (5-34) Units/L ALT 15 (0-55) Units/L Alkaline Phosphatase 141 H (38-126) Units/L Troponin I 0.03 (0-0.03) ng/mL Serum Total Protein 6.8 (6.0-8.3) g/dL Albumin 3.2 L (3.5-5.0) g/dL Globulin 3.6 H (2.4-3.5) g/dL Albumin/Globulin Ratio 0.9 L (1.1-2.2) Beta-Hydroxybutyric Acd (0.02-0.27) mmol/L 12/01/16 12/01/16 12/01/16 Range/Units 16:42 16:53 16:54 WBC (4.3-11.1) K/mcL RBC (4.19-5.50) M/mcL Hgb (12.9-16.9) g/dL Hct (37.5-50.1) % MCV (83.0-100.0) fL MCH (28.0-33.3) pg MCHC (31.6-35.5) g/dL RDW (11.5-14.5) % Plt Count (140-400) K/mcL MPV (9.4-12.4) fL Immature Gran % (0-4) % Seg Neutrophils % % Lymphocytes % % Monocytes % % Eosinophils % % Basophils % % Neutrophils # (1.6-8.9) K/mcL Lymphocytes # (0.6-4.6) K/mcL Monocytes # (0.0-1.3) K/mcL Eosinophils # (0.0-0.6) K/mcL Basophils # (0.0-0.2) K/mcL PT (9.4-12.1) Seconds INR APTT (26.0-36.0) Seconds Sodium (136-145) mEq/L Potassium (3.5-4.5) mEq/L Chloride (98-109) mEq/L Carbon Dioxide (19-29) mEq/L BUN (8-26) mg/dL Creatinine (0.72-1.25) mg/dL Est GFR ( Amer) (> 60) Est GFR (Non-Af Amer) (> 60) BUN/Creatinine Ratio (6-26) Glucose (70-99) mg/dL POC Glucose 460 H* 511 H* (58-89) Calculated Osmolality (280-300) Calcium (8.6-10.8) mg/dL Total Bilirubin (0.2-1.2) mg/dL Direct Bilirubin (0.0-0.5) mg/dL Indirect Bilirubin (0.0-1.2) mg/dL AST (5-34) Units/L ALT (0-55) Units/L Alkaline Phosphatase (38-126) Units/L Troponin I (0-0.03) ng/mL Serum Total Protein (6.0-8.3) g/dL Albumin (3.5-5.0) g/dL Globulin (2.4-3.5) g/dL Albumin/Globulin Ratio (1.1-2.2) Beta-Hydroxybutyric Acd 0.05 (0.02-0.27) mmol/L 12/01/16 12/01/16 Range/Units 17:37 17:38 WBC (4.3-11.1) K/mcL RBC (4.19-5.50) M/mcL Hgb (12.9-16.9) g/dL Hct (37.5-50.1) % MCV (83.0-100.0) fL MCH (28.0-33.3) pg MCHC (31.6-35.5) g/dL RDW (11.5-14.5) % Plt Count (140-400) K/mcL MPV (9.4-12.4) fL Immature Gran % (0-4) % Seg Neutrophils % % Lymphocytes % % Monocytes % % Eosinophils % % Basophils % % Neutrophils # (1.6-8.9) K/mcL Lymphocytes # (0.6-4.6) K/mcL Monocytes # (0.0-1.3) K/mcL Eosinophils # (0.0-0.6) K/mcL Basophils # (0.0-0.2) K/mcL PT (9.4-12.1) Seconds INR APTT (26.0-36.0) Seconds Sodium (136-145) mEq/L Potassium (3.5-4.5) mEq/L Chloride (98-109) mEq/L Carbon Dioxide (19-29) mEq/L BUN (8-26) mg/dL Creatinine (0.72-1.25) mg/dL Est GFR ( Amer) (> 60) Est GFR (Non-Af Amer) (> 60) BUN/Creatinine Ratio (6-26) Glucose (70-99) mg/dL POC Glucose 441 H* 434 H* (58-89) Calculated Osmolality (280-300) Calcium (8.6-10.8) mg/dL Total Bilirubin (0.2-1.2) mg/dL Direct Bilirubin (0.0-0.5) mg/dL Indirect Bilirubin (0.0-1.2) mg/dL AST (5-34) Units/L ALT (0-55) Units/L Alkaline Phosphatase (38-126) Units/L Troponin I (0-0.03) ng/mL Serum Total Protein (6.0-8.3) g/dL Albumin (3.5-5.0) g/dL Globulin (2.4-3.5) g/dL Albumin/Globulin Ratio (1.1-2.2) Beta-Hydroxybutyric Acd (0.02-0.27) mmol/L - Radiology Data Radiology results reviewed: Yes I reviewed the patient's radiology results. Chest X-Ray 12/01/16 15:38 IMPRESSION: 1. Cardiomegaly with bilateral interstitial opacities which have increased compared with prior exam and likely reflect increasing pulmonary edema. D/ / Ross Duran MD / Ross Duran MD Interpreting Provider: Ross Duran MD Head CT 12/01/16 15:39 IMPRESSION: No acute intracranial abnormality. D/ / 12/01/2016 16:38:40 Elvia Hernández MD / Tiana Ruiz Interpreting Provider: Elvia Hernández MD - EKG Data EKG #1 EKG attestation: Yes I reviewed and interpreted this EKG. EKG results narrative: Paced rhythm.
[2016-12-01 16:54] LABS: Basophils % 0.2 %; Eosinophils % 0.1 %; Hematocrit 27.5 % (37.5-50.1); Hemoglobin 8.8 g/dL (12.9-16.9); Immature Granulocytes % 3.8 % (0-4); Lymphocytes # 0.8 K/mcL (0.6-4.6); Lymphocytes % 6.6 %; Mean Corpuscular Hemoglobin 28.9 pg (28.0-33.3); Mean Corpuscular Volume 90.2 fL (83.0-100.0); Mean Platelet Volume 10.3 fL (9.4-12.4); Monocytes % 8.1 %; Neutrophils # 9.5 K/mcL (1.6-8.9); Platelet Count 298 K/mcL (140-400); Red Blood Count 3.05 M/mcL (4.19-5.50); Red Cell Distribution Width 13.6 % (11.5-14.5); Segmented Neutrophils % 81.2 %
[2016-12-01] MEDS ORDERED: Insulin Regular, Human 100 UNIT/ML IV ONE (16:57)
[2016-12-01 17:00] LABS: INR 1.1; Prothrombin Time 11.6 Seconds (9.4-12.1)
[2016-12-01 17:03] LABS: Activated Partial Thrombo Time 26.5 Seconds (26.0-36.0)
[2016-12-01 17:08] LABS: Albumin 3.2 g/dL (3.5-5.0); Albumin/Globulin Ratio 0.9 (1.1-2.2); Bilirubin,Direct 0.2 mg/dL (0.0-0.5); Bilirubin,Indirect 0.1 mg/dL (0.0-1.2); Bilirubin,Total 0.3 mg/dL (0.2-1.2); Calcium 8.6 mg/dL (8.6-10.8); Globulin 3.6 g/dL (2.4-3.5); Potassium 4.9 mEq/L (3.5-4.5); Total Protein 6.8 g/dL (6.0-8.3)
[2016-12-01] MEDS ORDERED: Furosemide 40 MG/4 ML VIAL IVP ONE (17:37)
[2016-12-01] MEDS ORDERED: Insulin LISPRO 300 UNITS/3 ML VIAL SQ STA (19:51)
[2016-12-01 20:10] LABS: Bilirubin,Urine Negative (Negative); Blood,Urine Negative (Negative); Clarity,Urine Clear (Clear); Color,Urine Yellow (Yellow); Glucose,Urine (UA) >=1000 mg/dL (Normal); Ketones,Urine Negative (Negative); Leukocyte Esterase,Urine Negative (Negative); Nitrite,Urine Negative (Negative); Protein,Urine 100 mg/dL (Neg-Trace); Specific Gravity,Urine 1.022 (1.010-1.025); Urobilinogen,Urine Normal (Normal)
[2016-12-01 20:13] LABS: Bacteria,Urine None Seen per hpf (None-Few); Hyaline Casts,Urine None Seen per lpf (None-Few); RBC,Urine 0-3 per hpf (0-3); Squamous Epithelial Cell,Urine Few per lpf (None-Few); WBC,Urine 0-3 per hpf (0-3)
[2016-12-01 20:16] LABS: Amphetamine Screen,Urine Negative ng/mL (Cutoff=1000); Barbiturate Screen,Urine Negative ng/mL (Cutoff=200); Benzodiazepines Screen,Urine Positive ng/mL (Cutoff=200); Cannabinoid Screen,Urine Negative ng/mL (Cutoff = 50); Cocaine Screen,Urine Negative ng/mL (Cutoff= 300); Opiate Screen,Urine Negative ng/mL (Cutoff=300); Phencyclidine Screen,Urine Negative ng/mL (Cutoff=25)
[2016-12-01] MEDS ORDERED: Naloxone 0.4 MG/ML INJ IVP PRN (20:44)
[2016-12-01] MEDS ORDERED: ALPRAZolam 0.5 MG TABLET PO PRN (20:49)
--- NOTE | 2016-12-01 21:09 | Internal Med History&Physical ---
<DeshawnAmanda Garcia Billie - Last Filed: 12/02/16 04:54> Date of Encounter: 12/02/16 Time of Encounter: 20:00 Assessment and Plan (1) Hyperglycemia Current visit: No Status: Acute Blood draw upon presentation to ED glucose 546, HCO2 16 ABG, pending UA >1000 glucose and 100 protein Blood cultures, pending Patient placed on steroid dose pack for right ankle gout this week. This is likely responsible for hyperglycemia. ED administered 6u Humalin IV and 3h later anther 10u Humalog IV Most recent POC 370 Insulin low-dose correction Q 2 hr Diabetic diet (2) CHF exacerbation Current visit: Yes Status: Acute BNP 1892 increased from 756 on 11/21/16 CXR: cardiac silhouette enlarged from study on 11/23/16 -Increased pulmonary edema -B/L pleural effusions ECHO 10/17/16. LVEF 60%, mild concentric LVH, mild LV diastolic dysfunction ED administered 40 mg IV Lasix Will hold additional lasix at this time due to hyperglycemia Will increase home dose of lasix upon discharge Qualifiers: Congestive heart failure type: diastolic Qualified Code(s): I50.33 - Acute on chronic diastolic (congestive) heart failure (3) Chronic kidney disease, stage III (moderate) Current visit: No Status: Acute (4) Hyponatremia Current visit: Yes Status: Acute Will improve with diuresis Repeat BMP in am (5) Hypertension Current visit: No Status: Chronic Qualifiers: Hypertension type: essential hypertension Qualified Code(s): I10 - Essential (primary) hypertension (6) Hyperkalemia Current visit: Yes Status: Acute Will improve with diuresis Repeat BMP in am (7) Melena Current visit: Yes Status: Acute Internal Medicine - H&P: HPI Chief complaint: hyperglycemia, lethargy Admitted From: Emergency Dept Plans for Post Hospital Care: Home History of present illness: Mr. Bowser is a 81 year old male who presents to hospital with recent onset hyperglycemia. Patient is accompanied by his who states that his blood glucose was greater than 600 this morning. Following breakfast of cereal and dosing his Januvia and Gimipizide, found that blood glucose remained above 600. Patient was sleepy and difficulty to arouse today. called nurse navigator who directed the patient to urgent care. Patient was seen on Sunday by PCP and was given a steroid dose pack for Right ankle gout. Patient was admitted last week 11/21/16 due to symptomatic bradycardia following up titration of diltiazem and metoprolol for afib. He was diagnosed with sick sinus syndrome and had a pacemaker placed on on 11/23/16. Admits fatigue, lethargy, difficult to arouse, constipation, melena (being worked up by PCP), leg swelling Denies RODRIGUES, dizziness, difficulty walking, chest pain, dyspnea, cough Past Med Surg Social Fam HX - Past Medical History Medical history: atrial fibrillation (now has pacemaker), CHF, diabetes, hypertension, renal disease, other (anemia, spinal stenosis) Psychiatric history: anxiety - Past Surgical History Surgical History: appendectomy, cataract, cholecystectomy, knee replacement - Social History Smoking Status: Never smoker Smokeless Tobacco Status: No Alcohol use: none Drug use: none - Family History Mother Living Status: Father Living Status: Internal Medicine - H&P: Meds Alprazolam [Xanax 0.5 MG Tablet] 0.5 mg PO TID PRN 01/16/16 [History] Glimepiride [Amaryl] 4 mg PO QAM 01/16/16 [History] Sitagliptin Phosphate [Januvia] 50 mg PO DAILY #0 01/16/16 [History] Amlodipine [Norvasc] 5 mg PO DAILY #30 tablet 01/17/16 [Rx] Aspirin 81 mg PO DAILY #30 tab.chew 11/11/16 [Rx] Diltiazem CD (24hr) [Cardizem CD] 360 mg PO DAILY #60 cap.er.24h 11/11/16 [Rx] Folic Acid 1 mg PO DAILY 11/21/16 [History] Furosemide [Lasix] 40 mg PO DAILY 11/21/16 [History] Guaifenesin [Mucinex] 600 mg PO BID 11/21/16 [History] Metoprolol [Lopressor] 25 mg PO BID 11/21/16 [History] Allergies Penicillins Allergy (Verified 01/16/16 11:27) Hives All Systems PM: A 10-system review of systems was performed and is negative for pertinent findings except as documented above in the HPI. - Constitutional Constitutional: fatigue, lethargy - Cardiovascular Cardiovascular ROS IM: edema, no chest pain, no dyspnea, no irregular heart rhythm, no palpitations - Respiratory Respiratory: no cough, no dyspnea - Gastrointestinal Gastrointestinal: melena, no abdominal pain, no hematochezia, no nausea, no vomiting - Genitourinary Genitourinary ROS male: no difficulty urinating, no dysuria - Constitutional Vitals: Temp Pulse Resp BP Pulse Ox 98.2 F 61 18 150/89 96 12/01/16 15:21 12/01/16 18:13 12/01/16 19:46 12/01/16 19:46 12/01/16 18:13 General appearance: Present: cooperative, pleasant, no acute distress Exam: Awake, alert, orientation is poor Patient recalled the name of the president, unable to recall the month of the year, unable to recall the day When asked what month we are currently in, patient answered 2016 - Head Head exam: Present: atraumatic, normal inspection, normocephalic - Neck Neck exam general surgery: Present: full ROM - Respiratory Respiratory exam: Present: decreased breath sounds, CTAB. Absent: rhonchi, wheezes - Cardiovascular Cardiovascular exam: Present: RRR (pacemaker in place), +S1, +S2 Additional comments: Pacemaker in place. Incision clean, dry, intact. No erythema, warmth, or cutaneous signs of infection. - GI/Abdominal GI/Abdominal exam: Present: normal bowel sounds. Absent: distended, hepatomegaly, splenomegaly, tenderness - Extremities Exam Extremities exam: Present: pedal edema (2+ in lower extremities, right greater than left) Internal Med - H&P Results - Labs CBC & Chem 7: 12/01/16 16:42 12/01/16 16:42 Labs: Urine 12/01/16 Range/Units 20:02 Urine Color Yellow (Yellow) Urine Clarity Clear (Clear) Urine pH 6.0 (5.0-8.0) pH Units Ur Specific [place] 1.022 (1.010-1.025) Urine Protein 100 H (Neg-Trace) mg/dL Urine Glucose (UA) >=1000 H (Normal) mg/dL - EKG Data -: EKG Interpreted by Myself EKG shows normal: sinus rhythm (paced rhythm) Rate: normal - Attending Attestation I examined this patient and my medical decision-making was reviewed with the TEACHER ASST/PA/Advanced Practice Nurse/Resident Physician. I agree with the documented findings, disposition and treatment plan as described except to the extent set forth below. <Edmund Mercer R - Last Filed: 12/02/16 08:15> Date of Encounter: 12/01/16 Internal Medicine - H&P: HPI History of present illness: Mr. Bowser is a 81 year old male All Systems PM: A 10-system review of systems was performed and is negative for pertinent findings except as documented above in the HPI. - Constitutional Vitals: Temp Pulse Resp BP Pulse Ox 97.6 F 66 20 169/80 92 L 12/02/16 04:43 12/02/16 04:43 12/02/16 04:43 12/02/16 04:43 12/02/16 04:43 Internal Med - H&P Results - Labs CBC & Chem 7: 12/02/16 06:11 12/02/16 06:11 Labs: Short CBC 12/02/16 Range/Units 06:11 WBC 12.3 H (4.3-11.1) K/mcL Hgb 9.1 L (12.9-16.9) g/dL Hct 27.9 L (37.5-50.1) % Plt Count 310 (140-400) K/mcL Neutrophils # 8.3 (1.6-8.9) K/mcL BMP 12/02/16 06:11 Sodium 137 D Potassium 4.3 Chloride 106 Carbon Dioxide 17 L BUN 56 H Creatinine 1.74 H Glucose 110 H Calcium 8.8 Urine 12/01/16 Range/Units 20:02 Urine Color Yellow (Yellow) Urine Clarity Clear (Clear) Urine pH 6.0 (5.0-8.0) pH Units Ur Specific [place] 1.022 (1.010-1.025) Urine Protein 100 H (Neg-Trace) mg/dL Urine Glucose (UA) >=1000 H (Normal) mg/dL - ABG Interpretation ABG results: 12/01/16 22:52 ABG pH 7.38 ABG pCO2 33 L ABG pO2 77 L ABG HCO3 19.5 L ABG Total CO2 20.5 ABG O2 Saturation 95 ABG Base Excess -5.0 L - Attending Attestation I examined this patient and my medical decision-making was reviewed with the TEACHER ASST/PA/Advanced Practice Nurse/Resident Physician. I agree with the documented findings, disposition and treatment plan as described except to the extent set forth below. I have personally evaluated the pt and discussed the details with the Bobbin Disker/ Resident. Pt was recently started on oral steroids for flare of gout. Now he presents with hyperglycemia (blood glucose at home >600). His Bicarb is low. No urinary ketones. ABG - pH is normal. I suspect Hyperglycemia / Hyperosmolar hyperglycemic state is likely due to high dose steroids - d/c steroids; started on sliding scale insulin. I think he does not need IV insulin at this time and the blood glucose is improving. He received IV lasix in the ER. CXR showed some pulmonary edema. If he needs treatment for gout, he may benefit from colchicine. Hyponatremia - likely due to pseudohyponatremia from hyperglycemia. Monitor sodium levels. acute on CKD - monitor renal function
[2016-12-01] MEDS ORDERED: D5% in Water 1,000 ML IV PRN (22:28)
[2016-12-01] MEDS ORDERED: *HR* Dextrose 50 % in Water (Syg) 50 ML SYRINGE IVP PRN (22:28)
[2016-12-01] MEDS ORDERED: Dextrose Gel 15 GM PO PRN ×2 (22:28)
[2016-12-01 23:05] LABS: ABG HCO3 19.5 mEQ/L (21-27); ABG Oxygen Saturation 95 % (95-98); ABG PCO2 33 mmHg (35-45); ABG PH 7.38 pH Units (7.32-7.45); ABG PO2 77 mmHg (85-104); ABG TCO2 20.5 mEq/L (20-26); Blood Gas FiO2 21 %
[2016-12-02] MEDS: Insulin LISPRO 300 UNITS/3 ML VIAL SQ SCH ×5 (01:05→08:07)
[2016-12-02 06:31] LABS: Basophils % 0.3 %; Eosinophils # 0.2 K/mcL (0.0-0.6); Eosinophils % 1.4 %; Hematocrit 27.9 % (37.5-50.1); Hemoglobin 9.1 g/dL (12.9-16.9); Immature Granulocytes % 4.4 % (0-4); Lymphocytes # 1.8 K/mcL (0.6-4.6); Lymphocytes % 14.6 %; Mean Corpuscular HGB Conc 32.6 g/dL (31.6-35.5); Mean Corpuscular Hemoglobin 28.7 pg (28.0-33.3); Mean Platelet Volume 10.1 fL (9.4-12.4); Monocytes # 1.5 K/mcL (0.0-1.3); Monocytes % 12.5 %; Neutrophils # 8.3 K/mcL (1.6-8.9); Platelet Count 310 K/mcL (140-400); Red Blood Count 3.17 M/mcL (4.19-5.50); Red Cell Distribution Width 13.5 % (11.5-14.5); Segmented Neutrophils % 66.8 %
[2016-12-02 06:45] LABS: Calcium 8.8 mg/dL (8.6-10.8); Magnesium 1.8 mg/dL (1.6-2.6); Phosphorous 3.6 mg/dL (2.3-4.7); Potassium 4.3 mEq/L (3.5-4.5)
[2016-12-02] MEDS ORDERED: Diltiazem CD (24hr) 180 MG CAPSULE PO SCH (09:00)
[2016-12-02] MEDS ORDERED: amLODIPine 5 MG TABLET PO SCH (09:00)
[2016-12-02] MEDS ORDERED: Aspirin 81 MG TAB.CHEW PO SCH (09:00)
[2016-12-02] MEDS ORDERED: Folic Acid 1 MG TABLET PO SCH (09:00)
[2016-12-02] MEDS ORDERED: Furosemide 40 MG TABLET PO SCH (10:15)
--- NOTE | 2016-12-02 11:46 | Discharge Summary ---
Date of Encounter: 12/02/16 Time of Encounter: 11:43 - Discharge Diagnosis (1) Hyperglycemia Priority: Primary Status: Resolved Comments: Resolved. FS now acceptable Resume home oral antihyperglycemic agents (2) Hyperkalemia Priority: Primary Status: Resolved Comments: Resolved (3) Hyponatremia Priority: Primary Status: Resolved Comments: Resolved, possibly from steroids (4) (HFpEF) heart failure with preserved ejection fraction Priority: Secondary Status: Chronic Comments: BNP elevated to 1892 from 76 on 11/21/16. CXR with pulmonary edema and bilateral pleural effusions. He received IV lasix in ED and in the unit His insists that he has no symptoms They will be discharged to continue home dose of lasix She is educated to take an extra pill if the patient gains weight She verbalizes understanding They have several appointments with PCP and Cardiology this coming week Advice to keep Resume other home meds (5) Chronic kidney disease, stage III (moderate) Priority: Secondary Status: Chronic (6) Diabetes Priority: Secondary Status: Chronic Qualifiers: Diabetes mellitus type: type 2 Diabetes mellitus complication status: with kidney complications Diabetes mellitus complication detail: with chronic kidney disease Diabetes mellitus correction insulin use: without senior quality assurance specialist use Chronic kidney disease stage: stage 3 (moderate) Qualified Code(s): E11.22 - Type 2 diabetes mellitus with diabetic chronic kidney disease; N18.3 - Chronic kidney disease, stage 3 (moderate) (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 (8) Hypertension Priority: Secondary Status: Chronic Qualifiers: Hypertension type: essential hypertension Qualified Code(s): I10 - Essential (primary) hypertension - Discharge Medications Home Medications: Alprazolam [Xanax 0.5 MG Tablet] 0.5 mg PO TID PRN 01/16/16 [History] Glimepiride [Amaryl] 4 mg PO QAM 01/16/16 [History] Sitagliptin Phosphate [Januvia] 50 mg PO DAILY #0 01/16/16 [History] Amlodipine [Norvasc] 5 mg PO DAILY #30 tablet 01/17/16 [Rx] Aspirin 81 mg PO DAILY #30 tab.chew 11/11/16 [Rx] Diltiazem CD (24hr) [Cardizem CD] 360 mg PO DAILY #60 cap.er.24h 11/11/16 [Rx] Folic Acid 1 mg PO DAILY 11/21/16 [History] Furosemide [Lasix] 40 mg PO DAILY 11/21/16 [History] Guaifenesin [Mucinex] 600 mg PO BID 11/21/16 [History] Metoprolol [Lopressor] 25 mg PO BID 11/21/16 [History] Allergies/Adverse Reactions: Allergies Penicillins Allergy (Verified 01/16/16 11:27) Hives Date of admission: 12/01/16 18:49 Primary care physician: Nicanor Araujo Jr, MD Discharging clinician: Irving Vuong Anticipated date of discharge: 12/02/16 - Patient Status Disposition: Home, Self-Care Condition: Good Functional capacity at discharge: independent ambulation Overall status at discharge: patient is progressing back to baseline - Discharge Instructions Instructions: Heart Failure (DC), How to Check Your Blood Sugar (DC), Diabetes Mellitus Type 2 in Adults (DC), Chronic Hypertension (DC) Follow Up With: Nicanor Araujo Jr, MD [Primary Care Provider] - - Diet and Activity Activity: resume usual activities as tolerated Diet: low fat, low cholesterol, low salt diet Interval History: See below Hospital course: Mr. Bowser is a 81 year old male he was placed on observation for hyperglycemia following use of high dose steroids(taper) for gout flare he is seen at bedside with his who reports no new symptoms When asked abut confusion, she states he was never confused and is at his baseline He will be discharged to follow up with cardiology and PCP Rest of details as in individual diagnoses - Time Spent with Patient Total time spent providing and/or coordinating discharge services: Less than 30 minutes - Constitutional Vitals: Temp Pulse Resp BP Pulse Ox 97.3 F L 71 18 151/72 93 L 12/02/16 08:11 12/02/16 08:11 12/02/16 08:11 12/02/16 08:11 12/02/16 08:30 General appearance: Present: cooperative, A&O X 2, pleasant, no acute distress - Head Head exam: Present: atraumatic, normocephalic - Eye Eye exam: Present: PERRL, conjuntiva pink, sclera anicteric Pupils: Present: PERRL - Neck Neck exam general surgery: Present: supple, trachea midline. Absent: lymphadenopathy - Respiratory Respiratory exam: Present: CTAB. Absent: accessory muscle use, rales, rhonchi, wheezes - Cardiovascular Cardiovascular exam: Present: RRR, +S1, +S2. Absent: diastolic murmur, gallop, rubs, systolic murmur - GI/Abdominal GI/Abdominal exam: Present: normal bowel sounds, soft, no peritoneal signs. Absent: distended, tenderness - Extremities Exam Extremities exam: Present: pedal edema, warm, radial pulses palpable and symetrical. Absent: calf tenderness, cyanotic - Neurological Exam Neurological exam: Present: alert, CN II-XII intact, no focal deficits. Absent : pronater drift, facial droop, speech deficit - Skin Skin exam: Present: dry
[2016-12-02 11:55] VITALS: BP 177/91
[2016-12-02] MEDS ORDERED: Insulin LISPRO 300 UNITS/3 ML VIAL SQ SCH (12:00)
--- NOTE | 2016-12-03 22:28 | Electrocardiograph Report ---
[facility] Test Date: 2016-12-01 Pat Name: Erlin Bowser Department: 103 Room: 2A42 Gender: M Mysql Developer: SUSY : [id number] Requested By: Malcolm Downs Order Number: [id number] Reading MD: Gerardo Khan MD Measurements Intervals Lyman Rate: 62 P: DE: 0 QRS: -66 QRSD: 209 T: 95 QT: 527 QTc: 533 Interpretive Statements ELECTRONIC VENTRICULAR PACEMAKER Electronically Signed On 12-03-16 22:27:01 EST by Gerardo Khan MD
== END 2016-12-02 12:55 | disposition home or self-care (01) ==
LOC: 2ANU 15:08 → EMEROO 15:08 → 2ANU 19:46
PROVIDERS: ADMIT Nurse Practitioner Acute Care; ATTEND Internal Medicine